=== PATIENT | female | born 1980 | race Caucasian/White ===

== ENCOUNTER 2017-09-06 13:23 | Day surgery (SDC) | payer OTHER, SELFPAY ==
[2017-09-06 14:02] VITALS: BP 182/94; PULSE 108; RESP 18; TEMP 37.1; O2SAT 99; BMI 35.3
[2017-09-06 14:06] LABS: Internal QC Validated? YES +Cl - CLEAR BKGD; Pregnancy, Urine Negative Negative
[2017-09-06] MEDS: Cefazolin 2 GM in 0.9% Normal Saline 100 ML IV (17:14)
--- NOTE | 2017-09-06 17:20 | PCM.DC.URO ---
Discharge Diet: Light diet - advance as tolerated Discharge Activity: Return to Normal Activity Instructions: Ureteral Stents Allergies/Adverse Reactions: Allergies No Known Allergies Allergy (Verified 09/05/17 14:36) Medications to take at Discharge NK [NK] 09/05/17 Primary Care Physician: Merly Rahman DO [Primary Care Provider] - Please Follow Up With: Ranjeet Carrizales MD When: call for an appt in about 2 months.
[2017-09-06 17:21] VITALS: BP 155/103; BP 182/94; PULSE 93; RESP 18; O2SAT 97
--- NOTE | 2017-09-06 17:21 | PCM.OPRPT ---
Report of Operation Date of Procedure: 09/06/17 Pre-Operative Diagnosis: Left hydronephrosis suspected cervical cancer Post-Operative Diagnosis: Same Surgery/Procedure Performed:: Cystoscopy and left stent placement Description of Surgical Findings:: 37-year-old female taken back to the operating room after smooth induction of anesthesia she was placed in dorsal lithotomy position. On exam she had a palpable mass within the vaginal vault somewhat friable, cystoscopy was done and inside the urethra was normal the bladder was mounded up like external compression on the left hemitrigone, the right side was normal, inside the bladder no tumors or stones nice smooth mucosa, I was able to cannulate the left ureteral orifice advanced a wire up the left kidney and over the wire I placed a stent 6 Hungarian by 24 cm stent stent coiled in the kidney and in the bladder good position I then drained the bladder and the patient anesthetic was reversed she was taken back to PACU in good condition. Explained to the patient before the procedure that stent can probably be changed every 3 months if deemed to be necessary still but if after treatment of her cervical cancer it is possible to remove the stent depending on the situation. Asked the patient to call and make an appointment to see me back in about 2 months. Type of Anesthesia:: General Drains: 6 fr x 24 cm stent left side. - Admit VTE Documentation VTE Present on Admission: No VTE Mechan Device Prophylaxis: SCD's VTE Pharm Prophylaxis ordered?: No Reason prophylaxis not ordered:: Treatment Not Indicated
[2017-09-06 17:30] VITALS: BP 157/98; BP 182/94; PULSE 104; RESP 18; TEMP 36.4; O2SAT 96
[2017-09-06 18:00] VITALS: BP 167/111; BP 182/94; RESP 18; TEMP 36.1; O2SAT 92
[2017-09-06 18:25] VITALS: BP 182/94
== END 2017-09-06 18:25 | disposition home or self-care (01) ==
LOC: SDC 13:25 → AC 13:28
PROVIDERS: Anesthesiology; Family Provider Internal Medicine; PCP Internal Medicine; Visit Provider Urology
PROC: (CPT 52332; principal; 2017-09-06 15:15)
DX: N13.30 Unspecified hydronephrosis (principal); N88.9 Noninflammatory disorder of cervix uteri, unspecified; Z87.891 Personal history of nicotine dependence
CPT/HCPCS: 00910; 52332; 76000; 81025; J7120; C1769; C2617; J2405

== ENCOUNTER 2017-09-07 12:29 | Observation (INO) | payer OTHER, SELFPAY ==
[2017-09-07] VITALS (13 sets, daily range): BP systolic 158–199; BP diastolic 91–110; PULSE 80–104; RESP 16–20; TEMP 36.1–36.9; O2SAT 94–100; BMI 34.2
--- NOTE | 2017-09-07 12:53 | CT_ITS ---
STUDY: CT ABDOMEN AND PELVIS WITH CONTRAST REASON FOR EXAM: Female, 37 years old. Bilateral flank pain stent placement RADIATION DOSAGE (If Supplied By Facility): CTDIvol = ( 16.59 ) mGy, DLP = ( 1245.98 ) mGycm TECHNIQUE: Transaxial images were obtained from the dome of the diaphragm to the symphysis pubis without oral contrast. 100 ml of Isovue 300 contrast was administered. Sagittal and coronal images were reconstructed. Individualized dose optimization techniques were used for this CT. COMPARISON: None. FINDINGS: Small right-sided pleural effusion. A right lower lobe nodule noted which appears somewhat low-attenuation concerning for neoplasm measuring approximately 2.2 cm. Please consider chest CT. Small nodule in the left lower lobe also seen measuring approximately 6 mm. No pericardial effusion. Mild hepatic steatosis. Gallbladder and adrenal glands appear unremarkable. The pancreas are within normal limits. The bowel gas pattern is nonobstructive. No definite evidence for acute appendicitis. A left-sided double-J ureteral stent device seen. No definite evidence for left-sided hydronephrosis. Mild right-sided hydronephrosis seen without definite evidence for obstructing ureteral stones. Somewhat delayed right-sided nephrogram Uterus appears prominent with thickened endometrium and prominent left adnexa measuring approximately 5 cm which can be assessed with sonography. There is heterogeneous density noted in the region of the cervix. Cervical mass is not excluded. Pelvic adenopathy also seen along the inguinal chain largest measuring approximately 1.3 cm. Osseous structures demonstrate no acute abnormalities. Degenerative changes in the lumbar spine as well as the thoracic spine. No retroperitoneal adenopathy noted. IMPRESSION: Status post left-sided double-J ureteral stent placement without definite evidence for hydronephrosis. Mild right-sided hydronephrosis without evidence for obstructing ureteral stones. Mass effect on the distal right ureter by pelvic mass is suspected Heterogeneous density mass originating from the cervix concerning for neoplasm. Low-attenuation cystic structure in the left adnexa which can be assessed with sonography Right lower lobe nodule. Small right-sided pleural effusion concerning for metastatic disease. Small left-sided lung nodule in the left lower lobe. Pelvic adenopathy No evidence for acute appendicitis. Electronically Signed: Miguel Gore, at 14:26 EDT Tel , Service support , CT/Abdomen/Pelvis W IV Cont ONLY
[2017-09-07] MEDS: proMETHazine 25 MG/ML Syringe 6.25 MG IV (13:02)
[2017-09-07] MEDS: Morphine 4 MG/ML Syringe IV (13:02)
[2017-09-07 13:16] LABS: Mucous, Urine 0 SEEN /hpf (<or=2+)
[2017-09-07 13:17] LABS: Color, Urine Yellow (Yellow); Glucose, Dipstick Normal (Normal); Ketone-Dipstick Negative (Negative); Leukocyte Esterase-Dipstick 500 /ul (Negative); Nitrite-Dipstick Negative (Negative); Occult Blood-Urine 250 /ul (Negative); Protein-Dipstick 30 mg/dl (Negative); Specific Gravity, Urine 1.005 (1.002-1.030); Urine Bilirubin Dipstick Negative (Negative); Urine Clarity Clear (Clear); Urine Urobilinogen Normal (Normal)
[2017-09-07 13:18] LABS: Absolute Lymphocyte Count 1.22 X10^3/ul (0.83-4.51); Absolute Neutrophil Count 8.3 X10^3/uL (2.0-7.7); Basophil# 0.01 X10^3/uL; Basophil% 0.1 % (0-1); Eosinophil# 0.16 X10^3/uL; Eosinophils% 1.6 % (0-5); Hemoglobin 11.8 g/dl (12.0-15.0); Lymphocyte # 1.22 X10^3/ul (4.0); Lymphocyte % 11.9 % (19-41); Mean Corp Hgb Conc 31.9 g/gl (32-36); Mean Corpuscular Hgb 25.4 pg (27.0-32.0); Mean Corpuscular Volume 79.7 fL (81-99); Mean Platelet Vol. 8.2 fl (6.2-12.0); Monocyte# 0.53 X10^3/uL; Monocyte% 5.2 % (0-10); Neutrophil # 8.33 X10^3/uL (2.7-7.7); Neutrophil % 81.1 % (47-70); Platelet Count 283 K/mm3 (150-450); RBC Distribution Width CV 13.5 % (11.6-14.6); RBC Distribution Width SD 38.8 fl (35.1-43.9); Red Blood Count 4.64 M/mm3 (4.2-5.4); White Blood Count 10.3 K/mm3 (4.4-11.0)
[2017-09-07 13:20] LABS: POSITIVE COUNT NO; POSITIVE DIFFERENTIAL NO; POSITIVE MORPHOLOGY NO
[2017-09-07 13:23] LABS: Bacteria 2+ /hpf (None Seen); Red Blood Cells-Urine 0-5 SEEN /hpf (0-5); Squamous Epithelial Cells - UA 0-5 SEEN /hpf (5-10); White Blood Cells 10-25 SEEN /hpf (0-5)
[2017-09-07 13:34] LABS: ALB/GLOB Ratio 0.7 RATIO (0.9-2.4); AST(SGOT) 16 U/L (15-37); Alanine Aminotransfer ALT/SGPT 10 U/L (13-56); Albumin, Serum 3.2 g/dL (3.2-5.0); Alkaline Phosphatase 61 U/L (45-117); Anion Gap 9 (5-15); BUN 8 mg/dL (7-18); BUN/Creat Ratio 5.3 RATIO (10-20); Calcium,Total 8.7 mg/dL (8.5-10.1); Chloride 105 mmol/L (98-107); EST Glomerular Filtration Rate 41 mL/min (>60); Est Glom Filt Rate - Afr Amer 50 mL/min (>60); Estimated Creatinine Clearance 41.65 ml/min; Globulin 4.3 g/dL (2.2-4.2); Glucose 142 mg/dL (74-106); Lipase 143 U/L (73-393); Protein, Total 7.5 g/dL (6.4-8.2); Sodium Level 140 mmol/L (136-145)
--- NOTE | 2017-09-07 13:37 | ED.VISSUMM ---
- ER Visit Summary Date of Service: 09/07/17 Chief Complaint: [Bilateral flank pain and abdominal pain] History of Present Illness: The patient is a 37 F [presents the emergency department with bilateral lower abdominal pain and flank pain. She has had a UTI for the last month. She has been on Cipro and Levaquin but is currently not on any antibiotics. Yesterday she had a stent placed in her left ureter by Dr. Armijo for hydronephrosis. She does have possible cervical cancer and they were concerned about a mass compressing the left ureter. Today she has left sided pain as well as right sided pain. She is currently not on any medications. She has had 2-3 episodes of vomiting yesterday and 2-3 episodes today. No fever.] Physical Examination: [] Pressure 164/100 WN WD NAD PERRL EOMI MMM NECK supple and nontender, no masses RRR no murmur rub or gallop, no peripheral edema, symmetric radial pulses CTAB no respiratory distress ABDOMEN is soft bilateral pelvic tenderness normal bowel sounds, no distension, no rebound or guarding Bilateral CVA tenderness SKIN is warm and dry no rashes Alert and Oriented x3, CN II-XII in tact, no motor or sensory deficits, gait normal No lymphadenopathy Test Results: [] Emergency Department Course and Treatment: [She was given fluids and pain medicine. Screening labs were obtained. I discussed ultrasound versus CT with this patient who prefers to have a CAT scan. Urinalysis showed 5-10 white blood cells with 2+ bacteria is not contaminated urine culture was sent. CT scan shows stent left. She now has right hydronephrosis. She also likely has metastatic disease with a right pulmonary nodule and pleural effusion. Given these findings and the patient's symptoms she will be admitted to the hospital.] Treatment Plan: [] Disposition: [Admit] Impression: [1. Right hydronephrosis 2. Pelvic mass obstructing] This note was generated with [employer] dictation software. It may contain incorrect words, spelling, and punctuation that were not noted in review of the chart prior to signing ED Disposition - Plan for ED Patient: Disposition: Acute Care Hospital [facility] Chief Complaint: Flank Pain
--- NOTE | 2017-09-07 16:06 | DT_ITS ---
This patient was seen during an EMR downtime September 09, 2017 - September 16, 2017. This patient may have a combination of paper and electronic documentation or all paper documentation. All documentation is viewable within the e-chart portion of [employer] for each patient visit.
--- NOTE | 2017-09-07 16:06 | PCM.HP.STD ---
Problem List (1) Hydronephrosis, right Status: Acute (2) JENNI (acute kidney injury) Status: Acute (3) Hypokalemia Status: Acute (4) Pelvic mass Status: Chronic History of Present Illness Date of Admission: 09/07/17 Chief Complaint: right flank pain. The patient is a 37 year old F with suspected cervical cancer, presents with right flank pain ?1 day. On the first, patient underwent a left ureteral stent for left-sided hydronephrosis due to a pelvic mass. Then today, patient had right flank pain. Patient presented to the emergency room and had a CAT scan. CAT scan showed left stent was intact but did show mild right-sided hydronephrosis without obstructing stones and possible mass-effect by the distal right ureter by pelvic mass is suspected. Patient was seen by Dr. Carrizales and he is planning on taking the patient for a right-sided stent tonight. [] Past Medical History Past Medical History (Chronic Problems): Chronic Problems Pelvic mass (Chronic) Allergies No Known Allergies Allergy (Verified 09/07/17 12:31) Home Medications: Ambulatory Orders Medication Instructions Recorded NK [NK] 09/05/17 Surgical History: - - History of a LEEP procedure Psychiatric History: No pertinent psych hx Smoking Status: Former smoker Tobacco Use: Non-smoker Alcohol: None Drugs: None - *Family History Maternal History Items: - - No cervical cancer. Review of Systems Constitutional: Denies: Anorexia, Chills, Fever Eyes: Denies: Blurred vision, Double vision HEENT: Reports: Difficulty Hearing Cardiovascular: Denies: Chest Pain, Palpitations Respiratory: Denies: Cough, Shortness of breath at rest, Sputum production Gastrointestinal: Reports: Abdominal Pain, Nausea, Vomiting Genitourinary: Denies: Dysuria, Hematuria Musculoskeletal: Denies: Joint Pain, Joint Tenderness Skin: Denies: Dryness, Jaundice Neurological: Denies: Balance problems, Blurred vision, Double vision, Change in Speech, Slurred speech Psychiatric: Denies: Anxiety, Depression Hematologic/ Lymphatic: Denies: Easy Bruising, Easy Bleeding, Hx of blood clot VTE Information - Inpt Only VTE Present on Admission: No VTE Mechan Device Prophylaxis: SCD's Patient Problems: Active and Suspected Problems Hydronephrosis, right (Acute) JENNI (acute kidney injury) (Acute) Hypokalemia (Acute) - Physical Exam General: Alert, - - Comfortable. Afebrile. HEENT: Atraumatic, Normocephalic Oral: Moist Mucosa, No Gingival or Mucosal Lesions/ Ulcerations Neck: No Nodes, Thyroid Normal Size and Texture Lungs: Clear to auscultation, Normal air movement, No rhonchi, No wheeze Cardiovascular: Regular rate, Regular Rhythm, Normal S1, Normal S2, No murmurs Abdomen: Bowel Sounds Present, Soft, Non Tender, Non-Distended, No Hepato-splenomegaly Extremities: No edema, No Calf Tenderness Psych/Mental Status: Normal Affect, Appropriate Vital Signs Temp Pulse Resp BP Pulse Ox 36.7 C 80 20 H 178/104 H 94 09/07/17 12:30 09/07/17 15:05 09/07/17 15:05 09/07/17 15:05 09/07/17 15:05 Oxygen Delivery Method Room Air Weight: 87.634 kg Body Mass Index (BMI) 34.2 Laboratory Tests Past 24 Hrs 09/07/17 09/07/17 09/07/17 13:00 13:00 13:00 WBC 10.3 RBC 4.64 Hgb 11.8 L Hct 37.0 MCV 79.7 L MCH 25.4 L MCHC 31.9 L RDW 13.5 RDW Differential 38.8 Plt Count 283 MPV 8.2 Immature Gran % (Auto) 0.100 Neut % (Auto) 81.1 H Lymph % (Auto) 11.9 L [place] % (Auto) 5.2 Eos % (Auto) 1.6 Baso % (Auto) 0.1 Absolute Neuts (auto) 8.3 H Absolute Lymphs (auto) 1.22 Total Counted Not Reportable Sodium 140 Potassium 3.0 L Chloride 105 Carbon Dioxide 26.0 Anion Gap 9 BUN 8 Creatinine 1.50 H Estim Creat Clear Calc 41.65 Est GFR (MDRD) Af Amer 50 L Est GFR (MDRD) Non-Af 41 L BUN/Creatinine Ratio 5.3 L Glucose 142 H Calcium 8.7 Total Bilirubin 0.40 AST 16 ALT 10 L Alkaline Phosphatase 61 Total Protein 7.5 Albumin 3.2 Globulin 4.3 H Albumin/Globulin Ratio 0.7 L Lipase 143 Urine Color Yellow Urine Clarity Clear Urine pH 7.0 Ur Specific [place] 1.005 Urine Protein 30 H Urine Glucose (UA) Normal Urine Ketones Negative Urine Occult Blood 250 H Urine Nitrite Negative Urine Bilirubin Negative Urine Urobilinogen Normal Ur Leukocyte Esterase 500 H Urine RBC 0-5 SEEN Urine WBC 10-25 SEEN Ur Squamous Epith Cells 0-5 SEEN Urine Bacteria 2+ Urine Mucus 0 SEEN Clinical Impression(s) from Imaging Studies Abdomen/Pelvis CT 09/07/17 12:53 Assessment/Plan All Active Problems Hydronephrosis, right (Acute) JENNI (acute kidney injury) (Acute) Hypokalemia (Acute) 1. Right-sided hydronephrosis Likely due to pelvic mass Patient to have a stent placed by urology this evening Control and antiemetics. 2. Acute kidney injury This is suspected. Last creatinine was from April 15, 2014 were 0.7. It is currently 1.5. Will give IV fluids and reevaluate in the morning. 3. Hypokalemia Patient did receive replacement in the emergency room Will follow up in the morning. 4. Pelvic mass Patient had a biopsy done 2 days ago at an outside facility Patient was told that it is suspected to be cervical cancer though not definitive at this time. 5. DVT prophylaxis with SCDs I am going to hold off on any kind of anticoagulation for now unless necessary. Just with the surgeries arms can hold off. Code Visit Inpatient E&M: 99553 Init Hosp L2
--- NOTE | 2017-09-07 16:13 | HP.PCM_ITS ---
Problem List (1) Hydronephrosis, right Status: Acute (2) JENNI (acute kidney injury) Status: Acute (3) Hypokalemia Status: Acute (4) Pelvic mass Status: Chronic History of Present Illness Date of Admission: 09/07/17 Chief Complaint: right flank pain. The patient is a 37 year old F with suspected cervical cancer, presents with right flank pain ?1 day. On the first, patient underwent a left ureteral stent for left-sided hydronephrosis due to a pelvic mass. Then today, patient had right flank pain. Patient presented to the emergency room and had a CAT scan. CAT scan showed left stent was intact but did show mild right-sided hydronephrosis without obstructing stones and possible mass-effect by the distal right ureter by pelvic mass is suspected. Patient was seen by Dr. Carrizales and he is planning on taking the patient for a right-sided stent tonight. [] Past Medical History Past Medical History (Chronic Problems): Chronic Problems Pelvic mass (Chronic) Allergies No Known Allergies Allergy (Verified 09/07/17 12:31) Home Medications: Ambulatory Orders Medication Instructions Recorded NK [NK] 09/05/17 Surgical History: - - History of a LEEP procedure Psychiatric History: No pertinent psych hx Smoking Status: Former smoker Tobacco Use: Non-smoker Alcohol: None Drugs: None - *Family History Maternal History Items: - - No cervical cancer. Review of Systems Constitutional: Denies: Anorexia, Chills, Fever Eyes: Denies: Blurred vision, Double vision HEENT: Reports: Difficulty Hearing Cardiovascular: Denies: Chest Pain, Palpitations Respiratory: Denies: Cough, Shortness of breath at rest, Sputum production Gastrointestinal: Reports: Abdominal Pain, Nausea, Vomiting Genitourinary: Denies: Dysuria, Hematuria Musculoskeletal: Denies: Joint Pain, Joint Tenderness Skin: Denies: Dryness, Jaundice Neurological: Denies: Balance problems, Blurred vision, Double vision, Change in Speech, Slurred speech Psychiatric: Denies: Anxiety, Depression Hematologic/ Lymphatic: Denies: Easy Bruising, Easy Bleeding, Hx of blood clot VTE Information - Inpt Only VTE Present on Admission: No VTE Mechan Device Prophylaxis: SCD's Patient Problems: Active and Suspected Problems Hydronephrosis, right (Acute) JENNI (acute kidney injury) (Acute) Hypokalemia (Acute) - Physical Exam General: Alert, - - Comfortable. Afebrile. HEENT: Atraumatic, Normocephalic Oral: Moist Mucosa, No Gingival or Mucosal Lesions/ Ulcerations Neck: No Nodes, Thyroid Normal Size and Texture Lungs: Clear to auscultation, Normal air movement, No rhonchi, No wheeze Cardiovascular: Regular rate, Regular Rhythm, Normal S1, Normal S2, No murmurs Abdomen: Bowel Sounds Present, Soft, Non Tender, Non-Distended, No Hepato- splenomegaly Extremities: No edema, No Calf Tenderness Psych/Mental Status: Normal Affect, Appropriate Vital Signs Temp Pulse Resp BP Pulse Ox 36.7 C 80 20 H 178/104 H 94 09/07/17 12:30 09/07/17 15:05 09/07/17 15:05 09/07/17 15:05 09/07/17 15:05 Oxygen Delivery Method Room Air Weight: 87.634 kg Body Mass Index (BMI) 34.2 Laboratory Tests Past 24 Hrs 09/07/17 09/07/17 09/07/17 13:00 13:00 13:00 WBC 10.3 RBC 4.64 Hgb 11.8 L Hct 37.0 MCV 79.7 L MCH 25.4 L MCHC 31.9 L RDW 13.5 RDW Differential 38.8 Plt Count 283 MPV 8.2 Immature Gran % (Auto) 0.100 Neut % (Auto) 81.1 H Lymph % (Auto) 11.9 L [place] % (Auto) 5.2 Eos % (Auto) 1.6 Baso % (Auto) 0.1 Absolute Neuts (auto) 8.3 H Absolute Lymphs (auto) 1.22 Total Counted Not Reportable Sodium 140 Potassium 3.0 L Chloride 105 Carbon Dioxide 26.0 Anion Gap 9 BUN 8 Creatinine 1.50 H Estim Creat Clear Calc 41.65 Est GFR (MDRD) Af Amer 50 L Est GFR (MDRD) Non-Af 41 L BUN/Creatinine Ratio 5.3 L Glucose 142 H Calcium 8.7 Total Bilirubin 0.40 AST 16 ALT 10 L Alkaline Phosphatase 61 Total Protein 7.5 Albumin 3.2 Globulin 4.3 H Albumin/Globulin Ratio 0.7 L Lipase 143 Urine Color Yellow Urine Clarity Clear Urine pH 7.0 Ur Specific [place] 1.005 Urine Protein 30 H Urine Glucose (UA) Normal Urine Ketones Negative Urine Occult Blood 250 H Urine Nitrite Negative Urine Bilirubin Negative Urine Urobilinogen Normal Ur Leukocyte Esterase 500 H Urine RBC 0-5 SEEN Urine WBC 10-25 SEEN Ur Squamous Epith Cells 0-5 SEEN Urine Bacteria 2+ Urine Mucus 0 SEEN Clinical Impression(s) from Imaging Studies Abdomen/Pelvis CT 09/07/17 12:53 Assessment/Plan All Active Problems Hydronephrosis, right (Acute) JENNI (acute kidney injury) (Acute) Hypokalemia (Acute) 1. Right-sided hydronephrosis * Likely due to pelvic mass * Patient to have a stent placed by urology this evening * Control and antiemetics. 2. Acute kidney injury * This is suspected. Last creatinine was from April 15, 2014 were 0.7. It is currently 1.5. * Will give IV fluids and reevaluate in the morning. 3. Hypokalemia * Patient did receive replacement in the emergency room * Will follow up in the morning. 4. Pelvic mass * Patient had a biopsy done 2 days ago at an outside facility * Patient was told that it is suspected to be cervical cancer though not definitive at this time. 5. DVT prophylaxis with SCDs * I am going to hold off on any kind of anticoagulation for now unless necessary. Just with the surgeries arms can hold off. Code Visit Inpatient E&M: 23380 Init Hosp L2
--- NOTE | 2017-09-07 16:23 | CON.PCM_ITS ---
Reason for Consult Date of Consultation: 09/07/17 Reason for Consultation: 37-year-old female with likely has cervical cancer status post placement of a stent on the left side just yesterday presented back to the emergency room with right new flank pain CAT scan was done that demonstrated new right hydronephrosis History of Present Illness: The patient is a 37 year old female with likely new diagnosis of cervical cancer status post placement of the left side yesterday for left hydronephrosis seen on outside CAT scan. Called in today with severe right flank pain, went to the emergency room and demonstrated new right hydronephrosis on CAT scan so plan to take the operating room today to place a stent on the right side. Also has pleural effusion on the right side and abnormal electrolytes. Past Medical History Past Medical History (Chronic Problems): Chronic Problems Pelvic mass (Chronic) Allergies No Known Allergies Allergy (Verified 09/07/17 12:31) Home Medications: Ambulatory Orders Medication Instructions Recorded NK [NK] 09/05/17 Surgical History: - - History of a LEEP procedure Psychiatric History: No pertinent psych hx Lives: With Family Smoking Status: Former smoker Tobacco Use: Non-smoker Alcohol: None Drugs: None - *Family History Maternal History Items: - - No cervical cancer. Review of Systems Constitutional: Denies: Chills, Fever, Weight Change HEENT: Denies: Head Aches, Sinus Congestion, Sinus Drainage Cardiovascular: Denies: Chest Pain, Palpitations Respiratory: Denies: Cough, Shortness of breath at rest, Sputum production Gastrointestinal: Reports: Abdominal Pain. Denies: Nausea, Vomiting Genitourinary: Denies: Dysuria Musculoskeletal: Reports: Back Pain. Denies: Joint Pain, Joint Tenderness Skin: Denies: Rash, Wounds Neurological: Denies: Numbness, Tingling, Focal weakness Psychiatric: Denies: Anxiety, Depression, Homicidal Ideations, Suicidal Ideations Hematologic/ Lymphatic: Denies: Easy Bruising, Easy Bleeding Physical Exam - Physical Exam Vital Signs Temp 98.0 F 09/07/17 12:30 Pulse 80 09/07/17 15:05 Resp 20 H 09/07/17 15:05 BP 178/104 H 09/07/17 15:05 Pulse Ox 94 09/07/17 15:05 Intake & Output 09/05/17 09/06/17 09/07/17 23:59 23:59 23:59 Weight: 87.634 kg General: Alert, Oriented x3 HEENT: Atraumatic Oral: Moist Mucosa - Recall [place]: Supple Lungs: Normal air movement - he has talked him Cardiovascular: Regular rate, Regular Rhythm Abdomen: Bowel Sounds Present, Soft, Obese Laboratory Tests Past 24 Hrs 09/07/17 09/07/17 09/07/17 13:00 13:00 13:00 WBC 10.3 RBC 4.64 Hgb 11.8 L Hct 37.0 MCV 79.7 L MCH 25.4 L MCHC 31.9 L RDW 13.5 RDW Differential 38.8 Plt Count 283 MPV 8.2 Immature Gran % (Auto) 0.100 Neut % (Auto) 81.1 H Lymph % (Auto) 11.9 L [place] % (Auto) 5.2 Eos % (Auto) 1.6 Baso % (Auto) 0.1 Absolute Neuts (auto) 8.3 H Absolute Lymphs (auto) 1.22 Total Counted Not Reportable Sodium 140 Potassium 3.0 L Chloride 105 Carbon Dioxide 26.0 Anion Gap 9 BUN 8 Creatinine 1.50 H Estim Creat Clear Calc 41.65 Est GFR (MDRD) Af Amer 50 L Est GFR (MDRD) Non-Af 41 L BUN/Creatinine Ratio 5.3 L Glucose 142 H Calcium 8.7 Total Bilirubin 0.40 AST 16 ALT 10 L Alkaline Phosphatase 61 Total Protein 7.5 Albumin 3.2 Globulin 4.3 H Albumin/Globulin Ratio 0.7 L Lipase 143 Urine Color Yellow Urine Clarity Clear Urine pH 7.0 Ur Specific [place] 1.005 Urine Protein 30 H Urine Glucose (UA) Normal Urine Ketones Negative Urine Occult Blood 250 H Urine Nitrite Negative Urine Bilirubin Negative Urine Urobilinogen Normal Ur Leukocyte Esterase 500 H Urine RBC 0-5 SEEN Urine WBC 10-25 SEEN Ur Squamous Epith Cells 0-5 SEEN Urine Bacteria 2+ Urine Mucus 0 SEEN Assessment/Plan All Active Problems Hydronephrosis, right (Acute) JENNI (acute kidney injury) (Acute) Hypokalemia (Acute) New right hydronephrosis and pain in the right side little bit of pain in the left side probably related to the stent, will place a stent on the right side now for new right hydronephrosis and admit to the hospital help adjust with pain meds etc. hopefully discharge within 24 hours.
[2017-09-07] MEDS: Cefazolin 2 GM in 0.9% Normal Saline 100 ML IV (16:43)
--- NOTE | 2017-09-07 16:53 | OP.PCM_ITS ---
Report of Operation Date of Procedure: 09/07/17 Pre-Operative Diagnosis: New right hydronephrosis, suspected cervical cancer Post-Operative Diagnosis: Same Surgery/Procedure Performed:: Cystoscopy, right retrograde Polygram, right stent placement Description of Surgical Findings:: 37-year-old female taken back to the operating room presented to the ER with severe right flank pain she has had a stent placed in the left side CAT scan was done that demonstrated new right hydronephrosis hydroureter she has a mass in the pelvis that is consistent with possible cervical cancer treated as had a biopsy done pathology pending. Plan to taken the operating room today to place a stent on the right side also of note electrolytes are normal and she does high very hypertensive. 37-year-old female taken back to the operating room at the smooth induction of anesthesia she was placed supine on the table the urethra and vaginal area were prepped and draped in usual sterile fashion went into the bladder with a 21 Bulgarian rigid cystourethroscope, the existing stent on the left side was in place in good position, I then went to the right side cannulated the ureteral orifice with a Glidewire and a Pollack catheter performed a retrograde pyelogram she had some mild dilation of the ureter and but she did have some mild right hydronephrosis certainly was not severe but was mild consistent was seen was on CAT scan. I then advanced a wire up into the right kidney over the wire place a stent stent was a 6 Bulgarian by 24 cm stent the stent coiled in the kidney pelvis and the bladder in good position the bladder was then drained the patient's anesthetic was reversed should be kept in the hospital to monitor and also to monitor for pain electrolytes and also for her high blood pressure. Type of Anesthesia:: General Drains: stent right side. - Admit VTE Documentation VTE Present on Admission: No VTE Mechan Device Prophylaxis: SCD's VTE Pharm Prophylaxis ordered?: No Reason prophylaxis not ordered:: Treatment Not Indicated
[2017-09-07] MEDS: Morphine 2 MG/ML Syringe IV ×2 (18:41→23:13)
[2017-09-07] MEDS: 0.9% NaCl Peripheral Flush Adult/Peds IV (18:41)
[2017-09-07] MEDS: 0.9% Normal Saline 1,000 ML 100 ML IV (18:42)
[2017-09-07] MEDS: Ondansetron 4 MG/2 ML Vial IV (19:40)
[2017-09-07] MEDS: hydrALAZINE 20 MG/ML Vial 10 MG IV (22:00)
[2017-09-08 03:53] VITALS: BP 163/95; PULSE 95; RESP 16; TEMP 36.3; O2SAT 98
[2017-09-08] MEDS: Ondansetron 4 MG/2 ML Vial IV (03:59)
[2017-09-08] MEDS: oxyCODONE 5 MG Tablet PO ×4 (05:05→23:32)
[2017-09-08 06:28] LABS: Absolute Lymphocyte Count 0.99 X10^3/ul (0.83-4.51); Absolute Neutrophil Count 10.3 X10^3/uL (2.0-7.7); Basophil# 0.02 X10^3/uL; Basophil% 0.2 % (0-1); Eosinophil# 0.08 X10^3/uL; Eosinophils% 0.7 % (0-5); Hematocrit 34.5 % (37-47); Lymphocyte # 0.99 X10^3/ul (4.0); Lymphocyte % 8.1 % (19-41); Mean Corp Hgb Conc 31.9 g/gl (32-36); Mean Corpuscular Hgb 25.4 pg (27.0-32.0); Mean Corpuscular Volume 79.7 fL (81-99); Monocyte# 0.74 X10^3/uL; Monocyte% 6.1 % (0-10); Neutrophil % 84.6 % (47-70); Platelet Count 277 K/mm3 (150-450); RBC Distribution Width CV 13.7 % (11.6-14.6); RBC Distribution Width SD 39.3 fl (35.1-43.9); Red Blood Count 4.33 M/mm3 (4.2-5.4); White Blood Count 12.2 K/mm3 (4.4-11.0)
[2017-09-08 06:34] LABS: POSITIVE COUNT NO; POSITIVE DIFFERENTIAL NO; POSITIVE MORPHOLOGY NO
[2017-09-08 06:36] LABS: Anion Gap 9 (5-15); BUN 7 mg/dL (7-18); BUN/Creat Ratio 6.2 RATIO (10-20); Calcium,Total 8.4 mg/dL (8.5-10.1); Chloride 105 mmol/L (98-107); Creatinine, Serum 1.13 mg/dL (0.55-1.02); EST Glomerular Filtration Rate 57 mL/min (>60); Est Glom Filt Rate - Afr Amer 69 mL/min (>60); Estimated Creatinine Clearance 55.29 ml/min; Glucose 120 mg/dL (74-106); Potassium 2.9 mmol/L (3.5-5.1); Sodium Level 141 mmol/L (136-145)
[2017-09-08] MEDS: Acetaminophen 325 MG Tablet 650 MG PO (06:36)
[2017-09-08 07:23] VITALS: BP 149/100; PULSE 86; RESP 16; TEMP 37.1; O2SAT 95
--- NOTE | 2017-09-08 10:38 | PCM.PN.HOSP ---
Patient Problems: Active and Suspected Problems Hydronephrosis, right (Acute) JENNI (acute kidney injury) (Acute) Hypokalemia (Acute) Subjective: Abdominal pain better, but 7/10. +N/V. Vitals/I&O's: Vital Signs Temp Pulse Resp BP Pulse Ox 37.1 C 86 16 149/100 H 95 09/08/17 07:23 09/08/17 07:23 09/08/17 07:23 09/08/17 07:23 09/08/17 07:23 Oxygen Flow Rate (L/min) 2 Oxygen Delivery Method Room Air Weight: 87.63 kg Body Mass Index (BMI) 34.2 Intake and Output for Last 24 Hours 09/06/17 09/07/17 09/08/17 23:59 23:59 23:59 Intake Total 750 / 750 2147 / 2147 Output Total 180 / 180 3360 / 3360 Balance 570 / 570 -1213 / -1213 General: Alert, No apparent distress HEENT: Atraumatic, Normocephalic Neck: No Nodes, Thyroid Normal Size and Texture Lungs: Clear to auscultation, Normal air movement, No rhonchi, No wheeze Cardiovascular: Regular rate, Regular Rhythm, Normal S1, Normal S2, No murmurs Abdomen: Bowel Sounds Present, Soft, Non Tender, Non-Distended, No Hepato-splenomegaly Extremities: No edema, No Calf Tenderness Psych/Mental Status: Normal Affect, Appropriate Laboratory Results 09/08/17 06:00: WBC 12.2 H, RBC 4.33, Hgb 11.0 L, Hct 34.5 L, MCV 79.7 L, MCH 25.4 L, MCHC 31.9 L, RDW 13.7, RDW Differential 39.3, Plt Count 277, MPV 8.0, Immature Gran % (Auto) 0.300, Neut % (Auto) 84.6 H, Lymph % (Auto) 8.1 L, [place] % (Auto) 6.1, Eos % (Auto) 0.7, Baso % (Auto) 0.2, Absolute Neuts (auto) 10.3 H, Absolute Lymphs (auto) 0.99, Total Counted Not Reportable 09/08/17 06:00: Sodium 141, Potassium 2.9 L, Chloride 105, Carbon Dioxide 27.0, Anion Gap 9, BUN 7, Creatinine 1.13 H, Estim Creat Clear Calc 55.29, Est GFR (MDRD) Af Amer 69, Est GFR (MDRD) Non-Af 57 L, BUN/Creatinine Ratio 6.2 L, Glucose 120 H, Calcium 8.4 L Current Medications Acetaminophen (Tylenol) 650 mg PO Q6H PRN PRN PRN Reason: Mild Pain (1-3)/Temp > 100.7 F Last Admin: 09/08/17 06:36 Dose: 650 mg Hydralazine HCl (Apresoline Iv) 10 mg IV Q6H PRN PRN PRN Reason: BLOOD PRESSURE ELEVATION Last Admin: 09/07/17 22:00 Dose: 10 mg Potassium Chloride (Kcl 10meq/100ml) 10 meq in 100 mls @ 100 mls/hr IV BOLUS Q1H MITA Stop: 09/08/17 11:44 Last Admin: 09/08/17 10:23 Dose: 100 mls/hr Magnesium Hydroxide (Milk Of Magnesia) 30 ml PO DAILY PRN PRN PRN Reason: Constipation Morphine Sulfate () 2 - 4 mg IV Q4H PRN PRN PRN Reason: MOD-SEVERE PAIN (4-10/10) Last Admin: 09/07/17 23:13 Dose: 2 mg Ondansetron HCl (Zofran) 4 mg IV Q8H PRN PRN PRN Reason: NAUSEA Last Admin: 09/08/17 03:59 Dose: 4 mg Oxycodone HCl (Oxyir) 5 - 10 mg PO Q4H PRN PRN PRN Reason: MOD-SEVERE PAIN (4-10/10) Last Admin: 09/08/17 05:05 Dose: 10 mg Sodium Chloride () 5 - 30 ml IV UD PRN PRN Reason: SALINE FLUSH Last Admin: 09/07/17 18:41 Dose: 10 ml Medical Necessity - Tobacco Use Smoking Status: Former smoker Tobacco Use: Non-smoker Assessment/Plan All Active Problems Hydronephrosis, right (Acute) JENNI (acute kidney injury) (Acute) Hypokalemia (Acute) 1. Right-sided hydronephrosis Likely due to pelvic mass s/p Right ureteral stent by Dr. Carrizales on 09/07. Had left sided stent placed on 09/06. 2. Acute kidney injury resolving continue with IVF given ongoing N/V 3. Hypokalemia Patient did receive replacement in the emergency room Will follow up in the morning. continue to replace and monitor while in hospital. 4. Pelvic mass Patient had a biopsy done 09/05 at an outside facility Patient was told that it is suspected to be cervical cancer though not definitive at this time. 5. DVT prophylaxis with SCDs I am going to hold off on any kind of anticoagulation for now unless necessary. Just with the surgeries arms can hold off. 6. Nausea and vomiting supportive mgmt for now. abd exam unremarkable at this time. 7. Disposition: pending N/V. once able to tolerate PO, she should be ready for discharge. Code Visit Inpatient E&M: 79058 Subs Hosp L2
--- NOTE | 2017-09-08 10:44 | PN_ITS ---
Patient Problems: Active and Suspected Problems Hydronephrosis, right (Acute) JENNI (acute kidney injury) (Acute) Hypokalemia (Acute) Subjective: Abdominal pain better, but 7/10. +N/V. Vitals/I&O's: Vital Signs Temp Pulse Resp BP Pulse Ox 37.1 C 86 16 149/100 H 95 09/08/17 07:23 09/08/17 07:23 09/08/17 07:23 09/08/17 07:23 09/08/17 07:23 Oxygen Flow Rate (L/min) 2 Oxygen Delivery Method Room Air Weight: 87.63 kg Body Mass Index (BMI) 34.2 Intake and Output for Last 24 Hours 09/06/17 09/07/17 09/08/17 23:59 23:59 23:59 Intake Total 750 / 750 2147 / 2147 Output Total 180 / 180 3360 / 3360 Balance 570 / 570 -1213 / -1213 General: Alert, No apparent distress HEENT: Atraumatic, Normocephalic Neck: No Nodes, Thyroid Normal Size and Texture Lungs: Clear to auscultation, Normal air movement, No rhonchi, No wheeze Cardiovascular: Regular rate, Regular Rhythm, Normal S1, Normal S2, No murmurs Abdomen: Bowel Sounds Present, Soft, Non Tender, Non-Distended, No Hepato- splenomegaly Extremities: No edema, No Calf Tenderness Psych/Mental Status: Normal Affect, Appropriate Laboratory Results 09/08/17 06:00: WBC 12.2 H, RBC 4.33, Hgb 11.0 L, Hct 34.5 L, MCV 79.7 L, MCH 25.4 L, MCHC 31.9 L, RDW 13.7, RDW Differential 39.3, Plt Count 277, MPV 8.0, Immature Gran % (Auto) 0.300, Neut % (Auto) 84.6 H, Lymph % (Auto) 8.1 L, [place] % (Auto) 6.1, Eos % (Auto) 0.7, Baso % (Auto) 0.2, Absolute Neuts (auto) 10.3 H , Absolute Lymphs (auto) 0.99, Total Counted Not Reportable 09/08/17 06:00: Sodium 141, Potassium 2.9 L, Chloride 105, Carbon Dioxide 27.0, Anion Gap 9, BUN 7, Creatinine 1.13 H, Estim Creat Clear Calc 55.29, Est GFR ( MDRD) Af Amer 69, Est GFR (MDRD) Non-Af 57 L, BUN/Creatinine Ratio 6.2 L, Glucose 120 H, Calcium 8.4 L Current Medications Acetaminophen (Tylenol) 650 mg PO Q6H PRN PRN PRN Reason: Mild Pain (1-3)/Temp > 100.7 F Last Admin: 09/08/17 06:36 Dose: 650 mg Hydralazine HCl (Apresoline Iv) 10 mg IV Q6H PRN PRN PRN Reason: BLOOD PRESSURE ELEVATION Last Admin: 09/07/17 22:00 Dose: 10 mg Potassium Chloride (Kcl 10meq/100ml) 10 meq in 100 mls @ 100 mls/hr IV BOLUS Q1H MITA Stop: 09/08/17 11:44 Last Admin: 09/08/17 10:23 Dose: 100 mls/hr Magnesium Hydroxide (Milk Of Magnesia) 30 ml PO DAILY PRN PRN PRN Reason: Constipation Morphine Sulfate () 2 - 4 mg IV Q4H PRN PRN PRN Reason: MOD-SEVERE PAIN (4-10/10) Last Admin: 09/07/17 23:13 Dose: 2 mg Ondansetron HCl (Zofran) 4 mg IV Q8H PRN PRN PRN Reason: NAUSEA Last Admin: 09/08/17 03:59 Dose: 4 mg Oxycodone HCl (Oxyir) 5 - 10 mg PO Q4H PRN PRN PRN Reason: MOD-SEVERE PAIN (4-10/10) Last Admin: 09/08/17 05:05 Dose: 10 mg Sodium Chloride () 5 - 30 ml IV UD PRN PRN Reason: SALINE FLUSH Last Admin: 09/07/17 18:41 Dose: 10 ml Medical Necessity - Tobacco Use Smoking Status: Former smoker Tobacco Use: Non-smoker Assessment/Plan All Active Problems Hydronephrosis, right (Acute) JENNI (acute kidney injury) (Acute) Hypokalemia (Acute) 1. Right-sided hydronephrosis * Likely due to pelvic mass * s/p Right ureteral stent by Dr. Carrizales on 09/07. Had left sided stent placed on 09/06. 2. Acute kidney injury * resolving * continue with IVF given ongoing N/V 3. Hypokalemia * Patient did receive replacement in the emergency room * Will follow up in the morning. * continue to replace and monitor while in hospital. 4. Pelvic mass * Patient had a biopsy done 09/05 at an outside facility * Patient was told that it is suspected to be cervical cancer though not definitive at this time. 5. DVT prophylaxis with SCDs * I am going to hold off on any kind of anticoagulation for now unless necessary. Just with the surgeries arms can hold off. 6. Nausea and vomiting * supportive mgmt for now. * abd exam unremarkable at this time. 7. Disposition: pending N/V. once able to tolerate PO, she should be ready for discharge. Code Visit Inpatient E&M: 59357 Subs Hosp L2
[2017-09-08] MEDS: Morphine 2 MG/ML Syringe IV (11:24)
[2017-09-08 13:30] VITALS: BP 178/104; PULSE 89; RESP 16; TEMP 36.9; O2SAT 97
[2017-09-08 20:15] VITALS: BP 172/98; PULSE 86; RESP 16; TEMP 36.9; O2SAT 99
[2017-09-08 23:34] VITALS: BP 187/115; PULSE 86; RESP 18; TEMP 36.9; O2SAT 99
[2017-09-08] MEDS: hydrALAZINE 20 MG/ML Vial 10 MG IV (23:34)
[2017-09-08] MEDS: 0.9% NaCl Peripheral Flush Adult/Peds IV (23:34)
[2017-09-09 00:35] VITALS: BP 168/92; PULSE 96; RESP 16
[2017-09-09 02:00] VITALS: BP 151/94; PULSE 96; RESP 16; TEMP 37.3; O2SAT 96
--- NOTE | 2017-09-17 10:02 | PCM.DC.SUM ---
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 Patient had undergone a stent placement in the left ureter on 06 September 2017 due to obstruction from a pelvic neoplasm-the actual etiology of the pelvic neoplasm was unknown but felt to be cervical cancer. Labs in the emergency room showed the patient's creatinine to be minimally elevated, she was given IV pain medications and imaging studies showed a right hydronephrosis. Patient was seen by urology, she was placed in observation status on [facility] 3 and a right ureteral stent was placed. For the next 48 hours after the stent was placed. Patient continued to have significant flank pain and had nausea and vomiting. She was given antiemetics and pain meds. Patient also received replacement potassium secondary to her hypokalemia. On 09/10/17, patient was seen and examined and felt to be in stable condition for discharge home, she was placed on blood pressure medications due to elevated blood pressure during her hospital stay, patient stated that in her recent office visits she had elevated blood pressure with but was not started on medication. Patient was to follow-up with her OB gynecological oncologist concerning her pelvic mass. Home Medications: Medications to take at Discharge NK [NK] 09/05/17 Primary Care Physician: Merly Rahman DO [Primary Care Provider] - Disposition: Home Minutes spent on discharge:: 25 Patient Condition:: Stable Medical Necessity - Tobacco Use Smoking Status: Former smoker Tobacco Use: Non-smoker Meaningful Use Info Meaningful Use Diagnoses (Choose all that apply): None applicable Code Visit OBSV E&M: 75783 Observation care discharge
--- NOTE | 2017-09-17 10:11 | DS.PCM_ITS ---
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 Patient had undergone a stent placement in the left ureter on 06 September 2017 due to obstruction from a pelvic neoplasm-the actual etiology of the pelvic neoplasm was unknown but felt to be cervical cancer. Labs in the emergency room showed the patient's creatinine to be minimally elevated, she was given IV pain medications and imaging studies showed a right hydronephrosis. Patient was seen by urology, she was placed in observation status on [facility] 3 and a right ureteral stent was placed. For the next 48 hours after the stent was placed. Patient continued to have significant flank pain and had nausea and vomiting. She was given antiemetics and pain meds. Patient also received replacement potassium secondary to her hypokalemia. On 09/10/17, patient was seen and examined and felt to be in stable condition for discharge home, she was placed on blood pressure medications due to elevated blood pressure during her hospital stay, patient stated that in her recent office visits she had elevated blood pressure with but was not started on medication. Patient was to follow- up with her OB gynecological oncologist concerning her pelvic mass. Home Medications: Medications to take at Discharge NK [NK] 09/05/17 Primary Care Physician: Merly Rahman DO [Primary Care Provider] - Disposition: Home Minutes spent on discharge:: 25 Patient Condition:: Stable Medical Necessity - Tobacco Use Smoking Status: Former smoker Tobacco Use: Non-smoker Meaningful Use Info Meaningful Use Diagnoses (Choose all that apply): None applicable Code Visit OBSV E&M: 01000 Observation care discharge
== END 2017-09-10 12:00 | disposition home or self-care (01) ==
LOC: ED 13:40 → SDC 16:07 → MS3 17:31
PROVIDERS: Urology; Emergency Provider Emergency Medicine; Family Provider Internal Medicine; PCP Internal Medicine
PROC: (CPT 52332; principal; 2017-09-07 16:00)
DX: N13.1 Hydronephrosis with ureteral stricture, not elsewhere classified (principal); D48.7 Neoplasm of uncertain behavior of other specified sites; E87.6 Hypokalemia; I10 Essential (primary) hypertension; N17.9 Acute kidney failure, unspecified; Z87.891 Personal history of nicotine dependence
CPT/HCPCS: 00910; 52332; 36415; 74177; 76000; 80048; 80053; 81001; 83690; 85025; 96361; 96374; 96375; 96376; 99218; 99285; J7030; J7040; J7120; Q9967; A4216; C1769; C2617; G0378; J2405

== ENCOUNTER → 2017-09-30 07:21 | Outpatient (CLI) | payer OTHER, SELFPAY ==
--- NOTE | 2017-09-30 07:00 | PET_ITS ---
EXAMINATION: FDG PET CT INDICATIONS: A 37-year-old female with reported history of cervical carcinoma presenting for apparent initial staging examination. COMPARISON EXAMINATION: CT of the abdomen and pelvis report dated 09/07/17. INDEX LESION SIZE SUV INTERPRETATION Lower pelvis uterine cervix 6.3 cm x 5.7 cm (frame 97) 14.3 Fulfills quantitative criteria for viable neoplasm Pelvic mesentery soft tissue lymphadenopathy 18.3 mm largest (frame 101) 6.8 (max) Fulfills quantitative criteria for viable neoplasm Right hemithorax pulmonary parenchyma (n = multiple) 39.2 mm largest (frame 229) 8.5 (max) Fulfills quantitative criteria for viable neoplasm Right anterior iliac wing 2.5 Fulfills quantitative criteria for viable osseous neoplasm NON-INDEX LESION SIZE SUV INTERPRETATION Left hemithorax pulmonary parenchyma 0.9 Quantitative criteria for viable neoplasm are not fulfilled TECHNIQUE: Following the intravenous administration of 15.06 mCi of F-18 deoxyglucose via the left forearm, multiplanar image acquisitions of the neck, chest, abdomen and pelvis to level of mid thigh, obtained at one hour post radiopharmaceutical administration contemporaneously interpreted with the current CT of the neck, chest, abdomen and pelvis to level of mid thigh, dated 09/30/[address] of the abdomen and pelvis report dated 09/07/17 reveal: SERUM GLUCOSE LEVEL: 104 mg/dl. HEIGHT: 64 inches. WEIGHT: 189 lbs. FINDINGS: 1. Heterogeneous increased glucose metabolism is defined in the lower pelvis contiguous to the lower portion of the uterus, uterine cervix generating a calculated maximum standard uptake value of 14.3. The maximal axial diameter of the corresponding metabolic, morphologic abnormality on review of CT of the pelvis dated 09/30/17 is 6.3 cm (transverse) x 5.7 cm (AP). 2. Several foci of labeled glucose uptake are visualized in the mid-lower pelvic mesentery corresponding to soft tissue adenopathy generating a calculated maximum standard uptake value of 6.8. The maximal axial diameter of the largest corresponding hypermetabolic soft tissue density on review CT of the pelvis dated 09/30/17 is 18.5 mm (AP). 3. An increase in radiopharmaceutical concentration is manifest in the right hemithorax pulmonary parenchyma, multifocal in presentation generating a calculated maximum standard uptake value of 8.5. The maximal axial diameter of the largest individual parenchymal density appears perispinal in location on review of CT of the thorax dated 09/30/17 is 39.2 mm (AP). 4. There is a focal increased in glucose concentration observed in the distribution of the right anterior iliac wing generating a calculated maximum standard uptake value of 2.5. Quantitative criteria for viable osseous neoplasm are fulfilled. 5. Subtle, barely perceptible increased glucose concentration is defined in the left hemithorax pulmonary parenchyma generating a calculated standard uptake value of 0.9. Quantitative criteria for viable neoplasm are not fulfilled. 6. Normal physiologic distribution of the radiopharmaceutical is apparent in the hepatic (3.4) and splenic parenchyma, both renal units, bladder and visualized intestinal tract. There is uniform distribution of the radiopharmaceutical concentration compared on the cerebellar hemispheres and cerebral cortex. Diffuse intestinal tract activity is noted throughout all four quadrants of the abdominal-pelvic retroperitoneum, mesentery consistent with normal physiologic distribution of the radiopharmaceutical. Pertinent CT findings are as follows. CHEST: Right-left axillary soft tissue densities with fatty hilus formation are non-glucose avid. A small right hemithorax pleural effusion demonstrates no evidence of quantitatively significant enhanced glucose metabolism. Parenchymal densities noted in the left hemithorax pulmonary parenchyma demonstrate no evidence of quantitatively significant enhanced glucose metabolism. ABDOMEN AND PELVIS: There is borderline fatty metamorphosis defined within the hepatic parenchyma. Bilateral ureteral stent placement is defined. Right-left inguinal soft tissue densities with fatty hilus formation demonstrate no evidence of quantitatively significant enhanced glucose metabolism. SKELETAL: Degenerative changes defined in the cervical, thoracic and lumbar spine demonstrate no evidence for glucose hypermetabolism. PET/PET/CT Tumor Base -Thigh Subs IMPRESSION: 1. ABNORMAL EXAMINATION INDICATIVE OF MALIGNANT VIABLE NEOPLASM. 2. Increased glucose concentration identified in the lower pelvis contiguous to the uterine cervix fulfills quantitative criteria for viable neoplasm. 3. Viable neoplasm-metastasis appears evident in the mid-lower pelvic mesentery corresponding to soft tissue lymph nodes, lymphadenopathy. 4. Multiple right hemithorax pulmonary parenchymal hypermetabolic abnormalities fulfill quantitative criteria for viable neoplasm commensurate with pulmonary parenchymal metastatic disease. (Dinora et al, Annals of Internal Medicine, 138:724, 2003). 5. Facilitated labeled glucose uptake noted in the right anterior iliac wing fulfills quantitative criteria for isolated viable osseous neoplasm metastatic involvement. (Ravin et al, Clinical Nuclear Medicine 29:161, 2004). 5. Minimally hypermetabolic abnormalities noted in the left upper and mid hemithorax pulmonary parenchyma do not fulfill quantitative criteria for viable neoplasm. (Farias et al, Annals of Internal Medicine, 138:724, 2003). Electronic Signature Franc Tafoya D.O. Electronically Signed: Franc Tafoya DO at 23:28 EDT Tel , Service support ,
== END ==
PROVIDERS: Family Provider Internal Medicine; PCP Internal Medicine; Visit Provider Obstetrics & Gynecology Gynecologic Oncology
DX: C53.1 Malignant neoplasm of exocervix (principal); G89.3 Neoplasm related pain (acute) (chronic)
CPT/HCPCS: 78815; A9552; A4216

== ENCOUNTER 2017-10-20 11:10 | Inpatient (IN) | payer OTHER, SELFPAY ==
[2017-10-20] VITALS (20 sets, daily range): BP systolic 93–153; BP diastolic 45–75; PULSE 101–132; RESP 10–18; TEMP 36.4–37.1; O2SAT 89–100; BMI 31.8; BMI 31.9
[2017-10-20 11:35] LABS: Bedside Glucose 146 mg/dL (70-110)
[2017-10-20] MEDS: 0.9% Normal Saline 1,000 ML 1000 ML IV ×2 (11:59)
[2017-10-20] MEDS: Ondansetron 4 MG/2 ML Vial IV (11:59)
[2017-10-20 12:15] LABS: Absolute Lymphocyte Count 1.25 X10^3/ul (0.83-4.51); Absolute Neutrophil Count 16.9 X10^3/uL (2.0-7.7); Basophil# 0.02 X10^3/uL; Basophil% 0.1 % (0-1); Eosinophil# 0.13 X10^3/uL; Eosinophils% 0.7 % (0-5); Hematocrit 30.1 % (37-47); Hemoglobin 9.5 g/dl (12.0-15.0); Lymphocyte # 1.25 X10^3/ul (4.0); Lymphocyte % 6.6 % (19-41); Mean Corp Hgb Conc 31.6 g/gl (32-36); Mean Corpuscular Hgb 24.7 pg (27.0-32.0); Mean Corpuscular Volume 78.2 fL (81-99); Mean Platelet Vol. 8.3 fl (6.2-12.0); Monocyte% 2.6 % (0-10); Neutrophil % 89.5 % (47-70); Platelet Count 492 K/mm3 (150-450); RBC Distribution Width CV 15.4 % (11.6-14.6); RBC Distribution Width SD 43.8 fl (35.1-43.9); Red Blood Count 3.85 M/mm3 (4.2-5.4); White Blood Count 18.9 K/mm3 (4.4-11.0)
[2017-10-20 12:22] LABS: POSITIVE COUNT NO; POSITIVE DIFFERENTIAL NO; POSITIVE MORPHOLOGY NO
--- NOTE | 2017-10-20 12:28 | RAD_ITS ---
STUDY: X-RAY CHEST REASON FOR EXAM: Female, 37 years old. Weakness TECHNIQUE: Portable upright chest COMPARISON: None. FINDINGS: Right lower lobe infiltrates partially silhouetting the hemidiaphragm, most consistent with pneumonia. Right mid to upper lung clear. Left lung clear. Normal cardiomediastinal silhouette, anaid and pleural margins. No acute osseous or upper abdominal process. RAD/Chest 1 View (Portable) IMPRESSION: Right lower lobe pneumonia. Electronically Signed: Franc Gregg, at 13:04 EDT Tel , Service support ,
[2017-10-20 12:35] LABS: Mucous, Urine 0 SEEN /hpf (<or=2+)
[2017-10-20 12:40] LABS: Color, Urine Amber (Yellow); Glucose, Dipstick Normal (Normal); Ketone-Dipstick 5 mg/dl (Negative); Lactic Acid 1.1 mmol/L (0.4-2.0); Leukocyte Esterase-Dipstick 500 /ul (Negative); Nitrite-Dipstick Negative (Negative); Occult Blood-Urine 250 /ul (Negative); Protein-Dipstick 100 mg/dl (Negative); Specific Gravity, Urine 1.015 (1.002-1.030); Urine Clarity Cloudy (Clear); Urine Urobilinogen Normal (Normal)
[2017-10-20 12:42] LABS: Urine Bilirubin Dipstick 1 mg/dL (Negative)
[2017-10-20 12:48] LABS: Bacteria 2+ /hpf (None Seen); Red Blood Cells-Urine 50-100 SEEN /hpf (0-5); Squamous Epithelial Cells - UA 0-5 SEEN /hpf (5-10); White Blood Cells 0-5 SEEN /hpf (0-5)
[2017-10-20 13:29] LABS: ALB/GLOB Ratio 0.5 RATIO (0.9-2.4); AST(SGOT) 13 U/L (15-37); Alanine Aminotransfer ALT/SGPT 11 U/L (13-56); Albumin, Serum 2.6 g/dL (3.2-5.0); Alkaline Phosphatase 101 U/L (45-117); Anion Gap 16 (5-15); BUN 77 mg/dL (7-18); BUN/Creat Ratio 7.8 RATIO (10-20); Calcium,Total 8.7 mg/dL (8.5-10.1); Chloride 91 mmol/L (98-107); Creatinine, Serum 9.83 mg/dL (0.55-1.02); EST Glomerular Filtration Rate 5 mL/min (>60); Est Glom Filt Rate - Afr Amer 6 mL/min (>60); Estimated Creatinine Clearance 6.64 ml/min; Globulin 5.1 g/dL (2.2-4.2); Glucose 121 mg/dL (74-106); Potassium 4.1 mmol/L (3.5-5.1); Protein, Total 7.7 g/dL (6.4-8.2); Sodium Level 133 mmol/L (136-145)
--- NOTE | 2017-10-20 13:40 | ED.VISSUMM ---
- ER Visit Summary Date of Service: 10/20/17 Chief Complaint: [] History of Present Illness: The patient is a 37 F [vomiting and confusion presents to the emergency department with complaint of confusion and vomiting today. Patient has a history of cervical cancer and received first round of chemotherapy yesterday with Dr. Diop. Per her father who is with her she has been more confused and more lethargic today. Patient's been having vomiting and dry heaves. No diarrhea. Patient denies any headache, chest pain, abdominal pain, or any pain anywhere. Patient denies urinary symptoms.] Physical Examination: [HEENT-PERRLA, EOMI. Cranial nerves II through XII grossly intact. TMs clear. Mucous membranes dry. No adenopathy. Cardiovascular-regular and tachycardic. No murmurs auscultated. Lungs-clear to auscultation, as well as stable with no crepitus or subcu emphysema Abdomen-normoactive bowel sounds, soft, nontender, no rebound or rigidity, no peritoneal signs. Extremities-intact ?4, normal range of motion, normal pulses, atraumatic], no rashes Test Results: [CBC with differential obtained showed a white count of 18.9, hemoglobin 9.5, hematocrit 30, platelets 192. Chemistries show sodium 133, potassium 4.1, chloride is 91, CO2 26, glucose 121, BUN 77 and creatinine was 9.83. LFTs were unremarkable. Lactate was 1.1] Emergency Department Course and Treatment: [Patient had blood cultures ordered as well as a urine culture. I did send off a CPK due to the fact that the nursing staff stated the urine had a foul odor and was brown in color. Patient apparently was started on Zosyn due to elevated white blood cell count and concern for infection in the urine. Patient did have an episode of hypotension in the emergency department with systolic blood pressures in the 70s and has received approximately 3 L of normal saline at this point and her blood pressure is improved now into the 90 systolic. There are no old lab values for her renal function in the computer although she tells me she has had a history of renal stents in the past. Gutierrez catheter was placed.] Treatment Plan: [Admit for IV hydration and further evaluation of kidney function. Admit for IV antibiotics] Disposition: [Admit] Impression: [Vomiting Renal failure Dehydration Urinary tract infection] This note was generated with [employer] dictation software. It may contain incorrect words, spelling, and punctuation that were not noted in review of the chart prior to signing ED Disposition - Plan for ED Patient: Chief Complaint: Nausea/Vomiting Referrals: Merly Rahman DO [Primary Care Provider] -
--- NOTE | 2017-10-20 13:45 | CT_ITS ---
STUDY: CT ABDOMEN AND PELVIS WITHOUT CONTRAST REASON FOR EXAM: Female, 37 years old. HEMATURIA. RECENT CHEMO FOR CERVICAL CANCER. RADIATION DOSAGE (If Supplied By Facility): CTDIvol = ( 11.63 ) mGy, DLP = ( 682.61 ) mGycm TECHNIQUE: Transaxial images were obtained from the dome of the diaphragm to the symphysis pubis without oral contrast, and without intravenous contrast. Sagittal and coronal images were reconstructed. Individualized dose optimization techniques were used for this CT. COMPARISON: None. FINDINGS: There is a right lung consolidation. The visualized portions of the heart are within normal limits. Normal liver. Normal gallbladder and extrahepatic biliary system. Normal spleen. Normal pancreas. Normal bilateral adrenal glands. There is bilateral ureteral stents. Normal visualized stomach. Normal small intestine. Normal colon. The appendix is visualized and appears normal. Normal abdominal aorta. Normal inferior vena cava. Normal retroperitoneum. Normal urinary bladder. Normal abdominal wall. There are diffuse degenerative changes of the visualized lumbar spine. CT/Abdomen/Pelvis without Cont IMPRESSION: Right lung consolidation. Further evaluation with dedicated CT of the chest can be obtained. Bilateral renal stents in place. Electronically Signed: Jama Adams MD at 14:53 EDT Tel , Service support ,
[2017-10-20 13:54] LABS: CPK Total, Creatine Kinase 53 U/L (26-192)
--- NOTE | 2017-10-20 14:08 | PCM.HP.STD ---
Problem List (1) JENNI (acute kidney injury) Status: Acute (2) Cervical cancer Status: Chronic Qualifiers: Malignant neoplasm of cervix location: unspecified location Qualified Code(s): C53.9 - Malignant neoplasm of cervix uteri, unspecified (3) HCAP (healthcare-associated pneumonia) Status: Chronic History of Present Illness Date of Admission: 10/20/17 Chief Complaint: Lethargy, nausea and vomiting - 1 day This patient is coming on under 2 medical records which needs to be merged on 10/21/17. Was previously here under: Fabiola Meyer [id number] The patient is a 37 year old F with recent diagnosis of cervical cancer, recently admitted and discharged on 09/08/2017 with JENNI/right hydronephrosis. She has history of left hydronephrosis status post stent and got right stent put in by Dr. Carrizales. Her discharge creatinine was 1.13. Patient has since followed up with Dr. Diop, according to her father, and has had 2 chemotherapy; the last one was yesterday, 10/19/17. She comes in with complaints of nausea, vomiting, confusion since having a chemotherapy yesterday. Patient is still confused and history was taken from her father who states that she has been more confused and sleepy today. She lives with her parents. Denies any diarrhea. On her admitting medication reconciliation, she is on valsartan/hydrochlorothiazide. Vitals on admission is 90 7.5F, heart rate is 130, blood pressure is 93/59, respiratory rate is 16, SPO2 is 94% on room air. When the nurse was passing the Gutierrez catheter in the ER, urine was said to be about 400 mils and straight cath, cloudy foul-smelling, slightly purulent. Admitting blood work showed WBC count of 18.9, hemoglobin 9.5, platelet count of 492, sodium 133, potassium 4.1, chloride 91, bicarbonate 26, BUN 77, creatinine 9.83, CK was 53 Past Medical History Past Medical History (Chronic Problems): Chronic Problems Cervical cancer (Chronic) HCAP (healthcare-associated pneumonia) (Chronic) Allergies No Known Allergies Allergy (Verified 10/20/17 11:13) Home Medications: Ambulatory Orders Medication Instructions Recorded Ondansetron [Zofran Odt] 4 mg PO Q8H 10/20/17 Oxycodone HCl/Acetaminophen 1 tablet PO Q4H PRN PRN 10/20/17 [Percocet 5/325] Sennosides [Senna Laxative] 8.6 mg PO DAILY 10/20/17 Sertraline HCl [Zoloft] 50 mg PO DAILY 10/20/17 Valsartan/Hydrochlorothiazide 1 each PO DAILY 10/20/17 [Valsartan-Hctz 160-12.5 mg Tab] Surgical History: no surgical history Psychiatric History: Anxiety, Depression 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 Lives: With Family Smoking Status: Former smoker Tobacco Use: Non-smoker Alcohol: None Drugs: None - *Family History Maternal History Items: No pertinent history Paternal History Items: No pertinent history Review of Systems Unable to obtain accurate/complete ROS d/t: Patient is lethargic VTE Information - Inpt Only VTE Present on Admission: No VTE Pharm Prophylaxis ordered?: Yes Patient Problems: Active and Suspected Problems JENNI (acute kidney injury) (Acute) - Physical Exam General: Alert, Cooperative, Confused - Oriented to person, place, year but not to month or time, keeps repeating 2017 2017 HEENT: Atraumatic, PERRLA, EOMI, Normocephalic Oral: Dry Mucosa Neck: Supple Lungs: Clear to auscultation, Normal air movement Cardiovascular: Regular rate, Regular Rhythm, Normal S1, Normal S2, No murmurs Abdomen: Bowel Sounds Present, Soft, Non Tender, Non-Distended, No Hepato-splenomegaly Extremities: No edema Skin: No rashes, No breakdown Musculoskeletal: No Tenderness to Palpation of Joints or Extremities Lymphatic: No Cervical, Supraclavicular, or Inguinal Adenopathy Neurological: Cranial nerves II-XII grossly intact, Neuro grossly intact Psych/Mental Status: Normal Affect, Appropriate Vital Signs Temp Pulse Resp BP Pulse Ox 97.5 F L 104 H 12 94/45 L 99 10/20/17 11:13 10/20/17 13:08 10/20/17 13:08 10/20/17 13:08 10/20/17 13:08 Oxygen Flow Rate (L/min) 2 Oxygen Delivery Method Nasal Cannula Weight: 79.5 kg Body Mass Index (BMI) 30.0 Laboratory Tests Past 24 Hrs 10/20/17 10/20/17 10/20/17 12:00 12:00 12:00 WBC 18.9 H RBC 3.85 L Hgb 9.5 L Hct 30.1 L MCV 78.2 L MCH 24.7 L MCHC 31.6 L RDW 15.4 H RDW Differential 43.8 Plt Count 492 H MPV 8.3 Immature Gran % (Auto) 0.500 Neut % (Auto) 89.5 H Lymph % (Auto) 6.[address] [place] % (Auto) 2.6 Eos % (Auto) 0.7 Baso % (Auto) 0.1 Absolute Neuts (auto) 16.9 H Absolute Lymphs (auto) 1.25 Total Counted Not Reportable Sodium Cancelled Potassium Cancelled Chloride Cancelled Carbon Dioxide Cancelled Anion Gap Cancelled BUN Cancelled Creatinine Cancelled Estim Creat Clear Calc Cancelled Est GFR (MDRD) Af Amer Cancelled Est GFR (MDRD) Non-Af Cancelled BUN/Creatinine Ratio Cancelled Glucose Cancelled Lactic Acid 1.1 Calcium Cancelled Total Bilirubin Cancelled AST Cancelled ALT Cancelled Alkaline Phosphatase Cancelled Total Creatine Kinase Total Protein Cancelled Albumin Cancelled Globulin Cancelled Albumin/Globulin Ratio Cancelled Urine Color Urine Clarity Urine pH Ur Specific [place] Urine Protein Urine Glucose (UA) Urine Ketones Urine Occult Blood Urine Nitrite Urine Bilirubin Urine Urobilinogen Ur Leukocyte Esterase Urine RBC Urine WBC Ur Squamous Epith Cells Urine Bacteria Urine Mucus 10/20/17 10/20/17 10/20/17 12:00 13:00 13:00 WBC RBC Hgb Hct MCV MCH MCHC RDW RDW Differential Plt Count MPV Immature Gran % (Auto) Neut % (Auto) Lymph % (Auto) [facility] % (Auto) Eos % (Auto) Baso % (Auto) Absolute Neuts (auto) Absolute Lymphs (auto) Total Counted Sodium 133 L Potassium 4.1 Chloride 91 L Carbon Dioxide 26.0 Anion Gap 16 H BUN 77 H Creatinine 9.83 H* Estim Creat Clear Calc 6.64 Est GFR (MDRD) Af Amer 6 L Est GFR (MDRD) Non-Af 5 L BUN/Creatinine Ratio 7.8 L Glucose 121 H Lactic Acid Calcium 8.7 Total Bilirubin 0.30 AST 13 L ALT 11 L Alkaline Phosphatase 101 Total Creatine Kinase 53 Total Protein 7.7 Albumin 2.6 L Globulin 5.1 H Albumin/Globulin Ratio 0.5 L Urine Color Fang Urine Clarity Cloudy Urine pH 5.0 Ur Specific [place] 1.015 Urine Protein 100 H Urine Glucose (UA) Normal Urine Ketones 5 H Urine Occult Blood 250 H Urine Nitrite Negative Urine Bilirubin 1 H Urine Urobilinogen Normal Ur Leukocyte Esterase 500 H Urine RBC 50-100 SEEN Urine WBC 0-5 SEEN Ur Squamous Epith Cells 0-5 SEEN Urine Bacteria 2+ Urine Mucus 0 SEEN POC Glucose 10/20/17 11:28 POC Glucose 146 H Assessment/Plan All Active Problems JENNI (acute kidney injury) (Acute) 37 year old F with recent diagnosis of cervical cancer, recently admitted and discharged on 09/08/2017 with JENNI/right hydronephrosis. She got a right ureteral stent placed. Her discharge creatinine was 1.13. She had chemotherapy yesterday and presents with nausea vomiting and confusion. 1. Altered mental status/acute metabolic encephalopathy secondary to acute kidney injury, patient is confused and lethargic, improved with IV fluids in the ED Plan: Admit to ICU, monitor on telemetry, monitor mentation closely 2. Acute kidney injury, likely prerenal in the setting of recent nausea and vomiting from chemotherapy with ongoing use of output and diuretic, history of bilateral renal stents, no hydronephrosis seen on CT of the abdomen and pelvis, patient looks severely dehydrated No electrolyte imbalance seen on BMP except for mild hyponatremia. Plan: IV fluids, strict I's and O's, Gutierrez catheter, nephrology consult, ultrasound of the kidneys, urine sodium, urea. 3. Possible Complicated UTI, in the setting of bilateral ureteral stents, and is lethargic and cannot answer accurately, UA shows cloudy foul-smelling urine, occult blood 250, leukocyte esterase 500, although WBC count 0-5 Plan: Continue IV Zosyn started in the ED, follow-up on urine cultures 4. Sepsis secondary to complicated UTI and HCAP, present on admission, patient came in with tachycardia of 130, elevated WBC, lactic acid is 1.1, started on IV Zosyn, will continue same 5. HCAP, patient recently admitted, immunocompromised, on chemotherapy, right sided lower infiltrate noted on x-ray and confirmed with CT scan of the abdomen, will continue only on Zosyn renal dose, will not start patient on Cipro or vancomycin yet on account of renal failure. 6. Cervical cancer, on chemotherapy, no history of any pathology reports, will consult Dr. Diop, get medical records 7. Anemia, microcytic microchromic, Hb is 9.5, will check iron stores 8. DVT prophylaxis with heparin subcu Code Visit Inpatient E&M: 71236 Init Hosp L3
--- NOTE | 2017-10-20 14:46 | US_ITS ---
STUDY: RENAL ULTRASOUND - COMPLETE REASON FOR EXAM: Female, 37 years old. Acute renal failure TECHNIQUE: Ultrasound evaluation of the kidneys was performed with real-time and static reid-scale imaging. COMPARISON: CT abdomen and pelvis 10/20/2017 FINDINGS: RIGHT KIDNEY: 13.7 x 6.7 x 7.0 cm. Normal cortical thickness 2.6 cm. Normal cortical echotexture. There is no mass, cyst, or calculus. There is very slight ectasia of the calyces. The renal pelvis is nondilated. LEFT KIDNEY: 12.3 x 6.1 x 6.5 cm. Normal cortical thickness 2 cm. Normal cortical echotexture. There is no mass, cyst, or calculus. There is slight ectasia of the calyces, without ectasia of the renal pelvis. There is a history of ureteral stents seen on the CT study of 10/20/2017. Stents are not visualized. BLADDER: Bladder is decompressed by Gutierrez catheter, and not well characterized. US/Kidney and Bladder IMPRESSION: Slight ectasia of the calyces of each kidney without dilatation of the renal pelvis. Normal renal cortical thickness and echotexture. Electronically Signed: Franc Gregg, at 11:21 EDT Tel , Service support ,
[2017-10-20] MEDS: 0.9% Normal Saline 1,000 ML 150 ML IV ×2 (14:55→21:23)
[2017-10-20 15:08] LABS: Urine Chloride 45 mmol/L (Not Establ.); Urine Sodium 59 mmol/L (Not Establ.)
[2017-10-20 15:47] LABS: Ferritin 315 ng/mL (8-252); Iron 21 ug/dL (50-170); Iron Binding Capacity,Total 180 ug/dL (250-450); PERCENT IRON SATURATION 11.7 % (15.0-55.0)
[2017-10-20 16:30] LABS: M R Staph aureus DNA By PCR Negative (Negative); Probe Check PASS; Specimen Processing Control PASS
--- NOTE | 2017-10-20 17:07 | PCM.CONS.R ---
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 Denied fever, chills, cough, SOB, diarrhea. Denied suprapubic pain, flank pain but did notice drop in urine output. She has not noticed blood in her urine but mom states her urine has been dark in the past. She was found to be in JENNI with creatinine at 9.8 with muddy brown urine in ER with hypotension, tachycardia. She received fluid bolus in ER and continues on maintenance fluids at 150cc/hr. She denied lightheadedness, dizziness, syncope, falls. Denied chest pain, shortness of breath. Denied tremors. Her parents at bedside states she has been losing weight 30# past 2 months with increased weakness after starting palliative radiation therapy x4 treatments. There was discussion about chemotherapy with platin therapy after radiation according to Dr. Diop. Creatinine was 1.13 on 09/08 after right ureteral stent placement on 09/07. Left ureteral stent was placed day prior. Creatinine was 1.3 on 09/25/17. She apparently is taking valsartan/HCTZ at home for hypertension started not too long ago. CT abdomen done in ER did not show hydronephrosis with bilateral stents in place. She had a right lung infiltrate. - Allergies Allergies: Allergies No Known Allergies Allergy (Verified 10/20/17 11:13) - Current Medications Current Medications: Current Medications Acetaminophen (Tylenol) 650 mg PO Q6H PRN PRN PRN Reason: Mild Pain (1-3)/Temp > 100.7 F Heparin Sodium (Porcine) (Heparin Na) 5,000 unit SC BID MITA Sodium Chloride () 1,000 mls @ 150 mls/hr IV .Q6H40M MITA Last Admin: 10/20/17 14:55 Dose: 150 mls/hr Piperacillin Sod/Tazobactam Sod (Zosyn) 3.375 gm in 50 mls @ 12.5 mls/hr IV Q12 MITA Magnesium Hydroxide (Milk Of Magnesia) 30 ml PO DAILY PRN PRN PRN Reason: Constipation Ondansetron HCl (Zofran) 4 mg IV Q8H PRN PRN PRN Reason: NAUSEA Oxycodone HCl (Oxyir) 5 mg PO Q6H PRN PRN PRN Reason: MOD-SEVERE PAIN (4-10/10) Psyllium Hydrophilic Mucilloid (Metamucil) 1 packet PO DAILY PRN PRN PRN Reason: CONSTIPATION Sodium Chloride () 5 - 30 ml IV UD PRN PRN Reason: SALINE FLUSH - Past Medical History Past Medical History (Chronic Problems): Chronic Problems Cervical cancer (Chronic) HCAP (healthcare-associated pneumonia) (Chronic) - Past Surgical History Surgical History: no surgical history - Social History Marital Status: Single - lives with parents, works at [employer] Smoking Status: Former smoker Alcohol: None Drugs: None - Family History Maternal History Items: No pertinent history Paternal History Items: No pertinent history Review of Systems Constitutional: Reports: Anorexia, Malaise, Weakness, Fatigue. Denies: Chills, Fever HEENT: Denies: Head Aches Cardiovascular: Denies: Chest Pain, Edema, Syncope Respiratory: Denies: Cough, Shortness of Breath Gastrointestinal: Reports: Nausea, Vomiting. Denies: Abdominal Pain, Diarrhea, Hematochezia Genitourinary: Reports: - - decrease in urine output. Denies: Dysuria Gynecological: Reports: - - no vaginal or pelvic pain, bleeding Musculoskeletal: Denies: Back Pain, Joint swelling Neurological: Reports: Confusion, - - generalized weakness. Denies: Balance problems, Focal weakness, Tremor, Seizures Psychiatric: Reports: Anxiety, Depression Hematologic/ Lymphatic: Reports: Anemia - Physical Exam General: Alert, Oriented x3, Cooperative, No apparent distress HEENT: PERRLA, EOMI Oral: Dry Mucosa Neck: Supple, No JVD Lungs: Clear to auscultation Cardiovascular: No rub noted, Tachycardic Abdomen: Bowel Sounds Present, Soft, Non Tender, Non-Distended Extremities: No edema Skin: No rashes, - - +tattoos Musculoskeletal: No Muscle Wasting Lymphatic: No Cervical, Supraclavicular, or Inguinal Adenopathy Neurological: Cranial nerves II-XII grossly intact, - - no tremor, no asterixis Psych/Mental Status: Anxious, Depressed, Alert and oriented to time, place, person, mood and affect Vital Signs Temp Pulse Resp BP Pulse Ox 98.5 F 125 H 14 140/72 H 99 10/20/17 15:00 10/20/17 17:00 10/20/17 17:00 10/20/17 17:00 10/20/17 17:00 Oxygen Flow Rate (L/min) 2 Oxygen Delivery Method Nasal Cannula Weight: 81.601 kg Body Mass Index (BMI) 31.8 Laboratory Tests Past 24 Hrs 10/20/17 14:50 MRSA (PCR) Negative Clinical Impression(s) from Imaging Studies Chest X-Ray 10/20/17 12:28 IMPRESSION: Right lower lobe pneumonia. Electronically Signed: Franc Gregg at 13:04 EDT Tel , Service support , Abdomen/Pelvis CT 10/20/17 13:45 IMPRESSION: Right lung consolidation. Further evaluation with dedicated CT of the chest can be obtained. Bilateral renal stents in place. Electronically Signed: Jama Adams MD at 14:53 EDT Tel , Service support , Assessment/Plan All Active Problems JENNI (acute kidney injury) (Acute) 1. Acute kidney injury ischemic ATN vs prerenal azotemia from dehydration, hypotension. Baseline creatinine 1.13 on 09/08, 1.3 on 09/25 after initiating radiation therapy, now at 9.8 with nausea, vomiting past 2 days, wt loss 30# over 2 months with anorexia since initiating radiation therapy. Will continue with aggressive hydration. No tremor, altered mental status at this time to initiate urgent dialysis. FeNA 2%. Hold valsartan/hctz. spoke with pt and pt parents at bedside re possible dialysis if renal fxn not improved wtih hydration. Evaluate for obstruction with hx bilateral ureteral stents due to obstructive uropathy from pelvic mass. 2. Hypotension, tachycardia with leukocytosis. Evaluate for sepsis, UTI. Cx sent. Pt asymptomatic 3 Stage 4 cervical cancer with mets to lung, bones, LN s/p palliative radiation therapy x4 for pelvic pain, DUB. Hematology consulted 4. RLL infiltrate. Hx lung mets 5. Hematuria likely due to stents 6. Hx HTN recently started on valsartan/hctz. Continue to hold.
[2017-10-20] MEDS: 0.9% NaCl IVPB Med Flush (250 mL) 15 ML IV (21:20)
[2017-10-20] MEDS: Piperacil/Tazobactam 3.375 GM/50 ML ML IV (21:23)
[2017-10-20] MEDS: Heparin Injection (Vial) 5,000 UNIT/ML VIAL 5000 UNIT SC (21:24)
[2017-10-21] VITALS (17 sets, daily range): BP systolic 111–154; BP diastolic 46–87; PULSE 76–117; RESP 14–21; TEMP 36.7–37.3; O2SAT 95–100
[2017-10-21] MEDS: 0.9% Normal Saline 1,000 ML 150 ML IV ×4 (04:01→23:39)
[2017-10-21] MEDS: 0.9% NaCl Peripheral Flush Adult/Peds IV (04:10)
[2017-10-21 04:36] LABS: Hematocrit 25.8 % (37-47); Hemoglobin 8.2 g/dl (12.0-15.0); Mean Corp Hgb Conc 31.8 g/gl (32-36); Mean Corpuscular Hgb 25.2 pg (27.0-32.0); Mean Corpuscular Volume 79.4 fL (81-99); Mean Platelet Vol. 8.1 fl (6.2-12.0); Platelet Count 423 K/mm3 (150-450); RBC Distribution Width CV 14.9 % (11.6-14.6); RBC Distribution Width SD 41.2 fl (35.1-43.9); Red Blood Count 3.25 M/mm3 (4.2-5.4)
[2017-10-21 04:45] LABS: Albumin, Serum 2.1 g/dL (3.2-5.0); BUN 66 mg/dL (7-18); BUN/Creat Ratio 15.3 RATIO (10-20); Calcium,Total 8.5 mg/dL (8.5-10.1); Chloride 102 mmol/L (98-107); EST Glomerular Filtration Rate 12 mL/min (>60); Est Glom Filt Rate - Afr Amer 15 mL/min (>60); Estimated Creatinine Clearance 14.53 ml/min; Glucose 110 mg/dL (74-106); Phosphorus 4.9 mg/dL (2.5-4.9); Potassium 3.9 mmol/L (3.5-5.1); Sodium Level 141 mmol/L (136-145)
[2017-10-21 04:49] LABS: Scan Indicated on CBC? Y/N NO
--- NOTE | 2017-10-21 06:22 | PCM.CON.CC ---
Reason for Consult Date of Consultation: 10/21/17 Reason for Consultation: Acute kidney injury History of Present Illness: The patient is a 37-year-old female, with a history as outlined below, who presented to the emergency department on October 20 with encephalopathy, weakness, nausea and vomiting. Patient's medical history is significant for stage IV cervical cancer with metastatic disease to the lung, bone and regional lymph nodes. The patient was recently admitted to the hospital in September, during which time, she had to undergo ureteral stent placement due to bilateral hydronephrosis in the setting of obstruction from a pelvic neoplasm. In addition, the patient also recently underwent a PET CT at the end of September 2017 which revealed findings concerning for viable neoplasm within the lower pelvis, right anterior iliac wing and right pulmonary parenchyma. She is currently being managed by Dr. Diop at [facility], and is currently receiving palliative radiation therapy. On presentation to the emergency department, the patient was noted to be afebrile, tachycardic and hypotensive. She was maintaining appropriate oxygen saturations on room air. Laboratory evaluation revealed elevated white blood cell count to 19,000 with evidence of microcytic anemia and thrombocytosis. Chemistry profile was notable for an elevated anion gap to 16 with a BUN and creatinine of 77 and 9.83, respectively. Serum lactate was normal at 1.1. CT abdomen/pelvis revealed evidence of a right lower lobe consolidation and bilateral renal stents. The patient received supplemental IV fluid hydration along with antibiotics. She was subsequently transferred to the medical intensive care unit, where she was later evaluated by nephrology. Past Medical History Past Medical History (Chronic Problems): Chronic Problems Cervical cancer (Chronic) HCAP (healthcare-associated pneumonia) (Chronic) Allergies No Known Allergies Allergy (Verified 10/20/17 11:13) Home Medications: Ambulatory Orders Medication Instructions Recorded Morphine Sulfate [Morphine Sulfate 30 mg PO QHS 10/20/17 ER] Ondansetron [Zofran Odt] 4 mg PO Q6H PRN 10/20/17 Oxycodone HCl/Acetaminophen 1 tablet PO Q4H PRN PRN 10/20/17 [Percocet 5/325] Sennosides [Senna Laxative] 2 tab PO BID 10/20/17 Sertraline HCl [Zoloft] 50 mg PO DAILY 10/20/17 Valsartan/Hydrochlorothiazide 1 each PO DAILY 10/20/17 [Valsartan-Hctz 160-12.5 mg Tab] Surgical History: no surgical history Lives: With Family Smoking Status: Former smoker Tobacco Use: Non-smoker Alcohol: None Drugs: None - *Family History Maternal History Items: No pertinent history Paternal History Items: No pertinent history Review of Systems Constitutional: Reports: Malaise, Weakness, Fatigue Eyes: Denies: Blurred vision, Double vision HEENT: Denies: Head Aches, Sinus Congestion, Sinus Drainage Cardiovascular: Denies: Chest Pain, Chest Tightness Respiratory: Denies: Cough, Shortness of Breath Gastrointestinal: Reports: Nausea, Vomiting. Denies: Abdominal Pain Genitourinary: Denies: Dysuria Musculoskeletal: Denies: Joint Pain, Joint Tenderness Skin: Denies: Rash, Wounds Neurological: Denies: Numbness, Tingling, Focal weakness Psychiatric: Reports: Depression Hematologic/ Lymphatic: Reports: Anemia Patient Problems: Active and Suspected Problems JENNI (acute kidney injury) (Acute) Objective: The patient's most recent lab work, culture data and imaging studies have all been personally reviewed. Blood and urine cultures are pending. - Physical Exam General: Alert, Cooperative, No apparent distress HEENT: Atraumatic, PERRLA, Normocephalic Oral: No Gingival or Mucosal Lesions/ Ulcerations Neck: Supple, No Nodes, Trachea Midline Lungs: No rhonchi, No wheeze, No rales, Diminished Cardiovascular: Normal S1, Normal S2, No murmurs, No rub noted, No Gallop, Tachycardic Abdomen: Bowel Sounds Present, Soft, Non Tender, - - Malodorous urine Extremities: No clubbing, No cyanosis, No edema Skin: No breakdown Musculoskeletal: No Tenderness to Palpation of Joints or Extremities Neurological: Neuro grossly intact Psych/Mental Status: Flat Affect Vital Signs Temp Pulse Resp BP Pulse Ox 98.1 F 101 H 21 H 140/59 H 98 10/21/17 04:00 10/21/17 05:00 10/21/17 05:00 10/21/17 05:00 10/21/17 05:00 Oxygen Flow Rate (L/min) 2 Oxygen Delivery Method Room Air Weight: 181 lb 3.52 oz Body Mass Index (BMI) 31.8 Intake and Output for Last 24 Hours 10/19/17 10/20/17 10/21/17 23:59 23:59 23:59 Intake Total 1724 / 1724 Output Total 775 / 775 Balance 949 / 949 Laboratory Tests Past 24 Hrs 10/20/17 10/21/17 10/21/17 14:50 04:15 04:15 WBC 11.0 RBC 3.25 L Hgb 8.2 L Hct 25.8 L MCV 79.4 L MCH 25.2 L MCHC 31.8 L RDW 14.9 H RDW Differential 41.2 Plt Count 423 MPV 8.1 Sodium 141 Potassium 3.9 Chloride 102 Carbon Dioxide 27.0 BUN 66 H Creatinine 4.30 H Estim Creat Clear Calc 14.53 Est GFR (MDRD) Af Amer 15 L Est GFR (MDRD) Non-Af 12 L BUN/Creatinine Ratio 15.3 Glucose 110 H Calcium 8.5 Phosphorus 4.9 Albumin 2.1 L MRSA (PCR) Negative Clinical Impression(s) from Imaging Studies Chest X-Ray 10/20/17 12:28 IMPRESSION: Right lower lobe pneumonia. Electronically Signed: Franc Gregg at 13:04 EDT Tel , Service support , Abdomen/Pelvis CT 10/20/17 13:45 IMPRESSION: Right lung consolidation. Further evaluation with dedicated CT of the chest can be obtained. Bilateral renal stents in place. Electronically Signed: Jama Adams MD at 14:53 EDT Tel , Service support , Assessment/Plan Active and Suspected Problems JENNI (acute kidney injury) (Acute) RECOMMENDATIONS: 1. Continue supplemental IV fluid hydration per nephrology recommendations. 2. Continue antibiotics, pending infectious workup 3. Continue oxycodone for pain 4. Continue appropriate DVT prophylaxis 5. The patient is medically stable for transfer out of the intensive care unit. IMPRESSIONS: 1. Sepsis secondary to complicated cystitis/HCAP The patient will be continued on supplemental IV fluid hydration. In addition, broad-spectrum antibiotics will be continued, pending infectious workup. If the patient does develop a productive cough, please send sputum for culture. The patient remains hemodynamically stable. 2. Acute kidney injury Likely prerenal in etiology. Creatinine is improving with volume expansion. Urine output is appropriate. Nephrology is following. No indication for renal replacement therapy at this time. Continue to hold home antihypertensive regimen. 3. Metabolic encephalopathy Likely secondary to the above. In addition, the patient was on long-acting morphine in the setting of acute renal insufficiency, which may also have contributed to her lethargy noted on presentation. She is improving clinically, nonetheless. 4. Metastatic cervical cancer, receiving palliative radiation/microcytic anemia Complicates care, management, recovery and prognosis. Awaiting oncology consultation. Continue to monitor blood counts accordingly. No indication for transfusion at this time. Recommend continuing oxycodone for pain, in lieu of extended release morphine, given renal insufficiency. This note was generated with [employer] dictation software. It may contain incorrect words, spelling, and punctuation that were not noted in checking the note before signing. Code Visit Inpatient E&M: 90736 Init Hosp L3
--- NOTE | 2017-10-21 07:55 | PN_ITS ---
Patient Problems: Active and Suspected Problems JENNI (acute kidney injury) (Acute) Vitals/I&O's: Vital Signs Temp Pulse Resp BP Pulse Ox 98.1 F 108 H 17 144/73 H 98 10/21/17 04:00 10/21/17 07:00 10/21/17 07:00 10/21/17 07:00 10/21/17 07:00 Oxygen Flow Rate (L/min) 2 Oxygen Delivery Method Room Air Weight: 82.2 kg Body Mass Index (BMI) 31.8 Intake and Output for Last 24 Hours 10/19/17 10/20/17 10/21/17 23:59 23:59 23:59 Intake Total 1724 / 1724 2258 / 2258 Output Total 775 / 775 800 / 800 Balance 949 / 949 1458 / 1458 Laboratory Results 10/20/17 14:50: MRSA (PCR) Negative 10/21/17 04:15: WBC 11.0, RBC 3.25 L, Hgb 8.2 L, Hct 25.8 L, MCV 79.4 L, MCH 25.2 L, MCHC 31.8 L, RDW 14.9 H, RDW Differential 41.2, Plt Count 423, MPV 8.1 10/21/17 04:15: Sodium 141, Potassium 3.9, Chloride 102, Carbon Dioxide 27.0, BUN 66 H, Creatinine 4.30 H, Estim Creat Clear Calc 14.53, Est GFR (MDRD) Af Amer 15 L, Est GFR (MDRD) Non-Af 12 L, BUN/Creatinine Ratio 15.3, Glucose 110 H , Calcium 8.5, Phosphorus 4.9, Albumin 2.1 L Current Medications Acetaminophen (Tylenol) 650 mg PO Q6H PRN PRN PRN Reason: Mild Pain (1-3)/Temp > 100.7 F Chlorhexidine Gluconate () 1 each TOPICAL DAILY [facility] Heparin Sodium (Porcine) (Heparin Na) 5,000 unit SC BID [facility] Last Admin: 10/20/17 21:24 Dose: 5,000 u Sodium Chloride () 1,000 mls @ 150 mls/hr IV .Q6H40M [facility] Last Admin: 10/21/17 04:01 Dose: 150 mls/hr Piperacillin Sod/Tazobactam Sod (Zosyn) 3.375 gm in 50 mls @ 12.5 mls/hr IV Q12 [facility] Last Admin: 10/20/17 21:23 Dose: 12.5 mls/hr Sodium Chloride () 250 mls @ 15 mls/hr IV .[id number] PRN PRN Reason: SALINE FLUSH Last Admin: 10/20/17 21:20 Dose: 15 mls/hr Magnesium Hydroxide (Milk Of Magnesia) 30 ml PO DAILY PRN PRN PRN Reason: Constipation Ondansetron HCl (Zofran) 4 mg IV Q8H PRN PRN PRN Reason: NAUSEA Oxycodone HCl (Oxyir) 5 mg PO Q6H PRN PRN PRN Reason: MOD-SEVERE PAIN (4-10/10) Psyllium Hydrophilic Mucilloid (Metamucil) 1 packet PO DAILY PRN PRN PRN Reason: CONSTIPATION Sodium Chloride () 5 - 30 ml IV UD PRN PRN Reason: SALINE FLUSH Last Admin: 10/21/17 04:10 Dose: 10 ml Medical Necessity - Tobacco Use Smoking Status: Former smoker Tobacco Use: Non-smoker Assessment/Plan All Active Problems JENNI (acute kidney injury) (Acute)
--- NOTE | 2017-10-21 07:59 | PCM.PN.HOSP ---
Patient Problems: Active and Suspected Problems JENNI (acute kidney injury) (Acute) Subjective: Patient is a 37-year-old lady with history of metastatic cervical CA chemo who presented with intractable nausea vomiting associated with some confusion and assessment of acute metabolic encephalopathy secondary to acute kidney injury made admitted for subsequent management Objective: GENERAL: Appears ill looking HEENT: Dry oral mucosa NECK; supple, normal thyroid, no distended JVD. CHEST: Clear to auscultation bilaterally, HEART: Regular S1 S2, tachycardiac ABDOMEN: soft, non-tender, normoactive bowel sounds, RECTAL: deferred EXTREMITIES: No edema, no clubbing, no cyanosis. FINGERNAIL TECHNICIAN: Awake; no lateralizing signs. SKIN: No Rash Vitals/I&O's: Vital Signs Temp Pulse Resp BP Pulse Ox 98.1 F 108 H 17 144/73 H 98 10/21/17 04:00 10/21/17 07:00 10/21/17 07:00 10/21/17 07:00 10/21/17 07:00 Oxygen Flow Rate (L/min) 2 Oxygen Delivery Method Room Air Weight: 82.2 kg Body Mass Index (BMI) 31.8 Intake and Output for Last 24 Hours 10/19/17 10/20/17 10/21/17 23:59 23:59 23:59 Intake Total 1724 / 1724 2258 / 2258 Output Total 775 / 775 800 / 800 Balance 949 / 949 1458 / 1458 Laboratory Results 10/20/17 14:50: MRSA (PCR) Negative 10/21/17 04:15: WBC 11.0, RBC 3.25 L, Hgb 8.2 L, Hct 25.8 L, MCV 79.4 L, MCH 25.2 L, MCHC 31.8 L, RDW 14.9 H, RDW Differential 41.2, Plt Count 423, MPV 8.1 10/21/17 04:15: Sodium 141, Potassium 3.9, Chloride 102, Carbon Dioxide 27.0, BUN 66 H, Creatinine 4.30 H, Estim Creat Clear Calc 14.53, Est GFR (MDRD) Af Amer 15 L, Est GFR (MDRD) Non-Af 12 L, BUN/Creatinine Ratio 15.3, Glucose 110 H, Calcium 8.5, Phosphorus 4.9, Albumin 2.1 L Current Medications Acetaminophen (Tylenol) 650 mg PO Q6H PRN PRN PRN Reason: Mild Pain (1-3)/Temp > 100.7 F Chlorhexidine Gluconate () 1 each TOPICAL DAILY [facility] Heparin Sodium (Porcine) (Heparin Na) 5,000 unit SC BID [facility] Last Admin: 10/20/17 21:24 Dose: 5,000 u Sodium Chloride () 1,000 mls @ 150 mls/hr IV .Q6H40M [facility] Last Admin: 10/21/17 04:01 Dose: 150 mls/hr Piperacillin Sod/Tazobactam Sod (Zosyn) 3.375 gm in 50 mls @ 12.5 mls/hr IV Q12 [facility] Last Admin: 10/20/17 21:23 Dose: 12.5 mls/hr Sodium Chloride () 250 mls @ 15 mls/hr IV .[id number] PRN PRN Reason: SALINE FLUSH Last Admin: 10/20/17 21:20 Dose: 15 mls/hr Magnesium Hydroxide (Milk Of Magnesia) 30 ml PO DAILY PRN PRN PRN Reason: Constipation Ondansetron HCl (Zofran) 4 mg IV Q8H PRN PRN PRN Reason: NAUSEA Oxycodone HCl (Oxyir) 5 mg PO Q6H PRN PRN PRN Reason: MOD-SEVERE PAIN (4-10/10) Psyllium Hydrophilic Mucilloid (Metamucil) 1 packet PO DAILY PRN PRN PRN Reason: CONSTIPATION Sodium Chloride () 5 - 30 ml IV UD PRN PRN Reason: SALINE FLUSH Last Admin: 10/21/17 04:10 Dose: 10 ml Medical Necessity - Tobacco Use Smoking Status: Former smoker Tobacco Use: Non-smoker Assessment/Plan All Active Problems JENNI (acute kidney injury) (Acute) Patient is a 37-year-old lady with history of metastatic cervical CA chemo who presented with intractable nausea vomiting associated with some confusion and assessment of acute metabolic encephalopathy secondary to acute kidney injury made admitted for subsequent management 1. Acute metabolic encephalopathy secondary to acute kidney injury as a result significant dehydration 2. Acute kidney injury prerenal secondary to dehydration. Patient started on aggressive IV fluid resuscitation kidney function improving consultation was also placed to nephrology awaiting input 2. History of obstructive uropathy status post right ureteral stent placement 4. Sepsis secondary to suspected complicated UTI in the setting of bilateral urethral stent patient was started on Zosyn culture sent with plans to adjust antibiotic therapy based on culture result 5. Healthcare associated pneumonia check history on admission demonstrated right lower lobe infiltrate on Zosyn as stated above 6. 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 Diop 7. Anemia secondary to anemia of malignancy monitoring H&H with plans to transfuse if patient becomes symptomatic 8. DVT prophylaxis SC heparin Clinical Impression(s) from Imaging Studies Chest X-Ray 10/20/17 12:28 IMPRESSION: Right lower lobe pneumonia. Electronically Signed: Franc Gregg at 13:04 EDT Tel , Service support , Abdomen/Pelvis CT 10/20/17 13:45 IMPRESSION: Right lung consolidation. Further evaluation with dedicated CT of the chest can be obtained. Bilateral renal stents in place. Electronically Signed: Jama Adams MD at 14:53 EDT Tel , Service support , Active Medications Acetaminophen (Tylenol) 650 mg PO Q6H PRN PRN PRN Reason: Mild Pain (1-3)/Temp > 100.7 F Chlorhexidine Gluconate () 1 each TOPICAL DAILY [facility] Heparin Sodium (Porcine) (Heparin Na) 5,000 unit SC BID [facility] Last Admin: 10/20/17 21:24 Dose: 5,000 u Sodium Chloride () 1,000 mls @ 150 mls/hr IV .Q6H40M [facility] Last Admin: 10/21/17 04:01 Dose: 150 mls/hr Piperacillin Sod/Tazobactam Sod (Zosyn) 3.375 gm in 50 mls @ 12.5 mls/hr IV Q12 [facility] Last Admin: 10/20/17 21:23 Dose: 12.5 mls/hr Sodium Chloride () 250 mls @ 15 mls/hr IV .[id number] PRN PRN Reason: SALINE FLUSH Last Admin: 10/20/17 21:20 Dose: 15 mls/hr Magnesium Hydroxide (Milk Of Magnesia) 30 ml PO DAILY PRN PRN PRN Reason: Constipation Ondansetron HCl (Zofran) 4 mg IV Q8H PRN PRN PRN Reason: NAUSEA Oxycodone HCl (Oxyir) 5 mg PO Q6H PRN PRN PRN Reason: MOD-SEVERE PAIN (4-10/10) Psyllium Hydrophilic Mucilloid (Metamucil) 1 packet PO DAILY PRN PRN PRN Reason: CONSTIPATION Sodium Chloride () 5 - 30 ml IV UD PRN PRN Reason: SALINE FLUSH Last Admin: 10/21/17 04:10 Dose: 10 ml Code Visit Inpatient E&M: 91719 Subs Hosp L3
--- NOTE | 2017-10-21 08:04 | PN_ITS ---
Patient Problems: Active and Suspected Problems JENNI (acute kidney injury) (Acute) Subjective: Patient is a 37-year-old lady with history of metastatic cervical CA chemo who presented with intractable nausea vomiting associated with some confusion and assessment of acute metabolic encephalopathy secondary to acute kidney injury made admitted for subsequent management Objective: GENERAL: Appears ill looking HEENT: Dry oral mucosa NECK; supple, normal thyroid, no distended JVD. CHEST: Clear to auscultation bilaterally, HEART: Regular S1 S2, tachycardiac ABDOMEN: soft, non-tender, normoactive bowel sounds, RECTAL: deferred EXTREMITIES: No edema, no clubbing, no cyanosis. CREATIVE SERVICES SPECIALIST: Awake; no lateralizing signs. SKIN: No Rash Vitals/I&O's: Vital Signs Temp Pulse Resp BP Pulse Ox 98.1 F 108 H 17 144/73 H 98 10/21/17 04:00 10/21/17 07:00 10/21/17 07:00 10/21/17 07:00 10/21/17 07:00 Oxygen Flow Rate (L/min) 2 Oxygen Delivery Method Room Air Weight: 82.2 kg Body Mass Index (BMI) 31.8 Intake and Output for Last 24 Hours 10/19/17 10/20/17 10/21/17 23:59 23:59 23:59 Intake Total 1724 / 1724 2258 / 2258 Output Total 775 / 775 800 / 800 Balance 949 / 949 1458 / 1458 Laboratory Results 10/20/17 14:50: MRSA (PCR) Negative 10/21/17 04:15: WBC 11.0, RBC 3.25 L, Hgb 8.2 L, Hct 25.8 L, MCV 79.4 L, MCH 25.2 L, MCHC 31.8 L, RDW 14.9 H, RDW Differential 41.2, Plt Count 423, MPV 8.1 10/21/17 04:15: Sodium 141, Potassium 3.9, Chloride 102, Carbon Dioxide 27.0, BUN 66 H, Creatinine 4.30 H, Estim Creat Clear Calc 14.53, Est GFR (MDRD) Af Amer 15 L, Est GFR (MDRD) Non-Af 12 L, BUN/Creatinine Ratio 15.3, Glucose 110 H , Calcium 8.5, Phosphorus 4.9, Albumin 2.1 L Current Medications Acetaminophen (Tylenol) 650 mg PO Q6H PRN PRN PRN Reason: Mild Pain (1-3)/Temp > 100.7 F Chlorhexidine Gluconate () 1 each TOPICAL DAILY [facility] Heparin Sodium (Porcine) (Heparin Na) 5,000 unit SC BID [facility] Last Admin: 10/20/17 21:24 Dose: 5,000 u Sodium Chloride () 1,000 mls @ 150 mls/hr IV .Q6H40M [facility] Last Admin: 10/21/17 04:01 Dose: 150 mls/hr Piperacillin Sod/Tazobactam Sod (Zosyn) 3.375 gm in 50 mls @ 12.5 mls/hr IV Q12 [facility] Last Admin: 10/20/17 21:23 Dose: 12.5 mls/hr Sodium Chloride () 250 mls @ 15 mls/hr IV .[id number] PRN PRN Reason: SALINE FLUSH Last Admin: 10/20/17 21:20 Dose: 15 mls/hr Magnesium Hydroxide (Milk Of Magnesia) 30 ml PO DAILY PRN PRN PRN Reason: Constipation Ondansetron HCl (Zofran) 4 mg IV Q8H PRN PRN PRN Reason: NAUSEA Oxycodone HCl (Oxyir) 5 mg PO Q6H PRN PRN PRN Reason: MOD-SEVERE PAIN (4-10/10) Psyllium Hydrophilic Mucilloid (Metamucil) 1 packet PO DAILY PRN PRN PRN Reason: CONSTIPATION Sodium Chloride () 5 - 30 ml IV UD PRN PRN Reason: SALINE FLUSH Last Admin: 10/21/17 04:10 Dose: 10 ml Medical Necessity - Tobacco Use Smoking Status: Former smoker Tobacco Use: Non-smoker Assessment/Plan All Active Problems JENNI (acute kidney injury) (Acute) Patient is a 37-year-old lady with history of metastatic cervical CA chemo who presented with intractable nausea vomiting associated with some confusion and assessment of acute metabolic encephalopathy secondary to acute kidney injury made admitted for subsequent management 1. Acute metabolic encephalopathy secondary to acute kidney injury as a result significant dehydration 2. Acute kidney injury prerenal secondary to dehydration. Patient started on aggressive IV fluid resuscitation kidney function improving consultation was also placed to nephrology awaiting input 2. History of obstructive uropathy status post right ureteral stent placement 4. Sepsis secondary to suspected complicated UTI in the setting of bilateral urethral stent patient was started on Zosyn culture sent with plans to adjust antibiotic therapy based on culture result 5. Healthcare associated pneumonia check history on admission demonstrated right lower lobe infiltrate on Zosyn as stated above 6. 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 Diop 7. Anemia secondary to anemia of malignancy monitoring H&H with plans to transfuse if patient becomes symptomatic 8. DVT prophylaxis SC heparin Clinical Impression(s) from Imaging Studies Chest X-Ray 10/20/17 12:28 IMPRESSION: Right lower lobe pneumonia. Electronically Signed: Franc Gregg at 13:04 EDT Tel , Service support , Abdomen/Pelvis CT 10/20/17 13:45 IMPRESSION: Right lung consolidation. Further evaluation with dedicated CT of the chest can be obtained. Bilateral renal stents in place. Electronically Signed: Jama Adams MD at 14:53 EDT Tel , Service support , Active Medications Acetaminophen (Tylenol) 650 mg PO Q6H PRN PRN PRN Reason: Mild Pain (1-3)/Temp > 100.7 F Chlorhexidine Gluconate () 1 each TOPICAL DAILY [facility] Heparin Sodium (Porcine) (Heparin Na) 5,000 unit SC BID [facility] Last Admin: 10/20/17 21:24 Dose: 5,000 u Sodium Chloride () 1,000 mls @ 150 mls/hr IV .Q6H40M [facility] Last Admin: 10/21/17 04:01 Dose: 150 mls/hr Piperacillin Sod/Tazobactam Sod (Zosyn) 3.375 gm in 50 mls @ 12.5 mls/hr IV Q12 [facility] Last Admin: 10/20/17 21:23 Dose: 12.5 mls/hr Sodium Chloride () 250 mls @ 15 mls/hr IV .[id number] PRN PRN Reason: SALINE FLUSH Last Admin: 10/20/17 21:20 Dose: 15 mls/hr Magnesium Hydroxide (Milk Of Magnesia) 30 ml PO DAILY PRN PRN PRN Reason: Constipation Ondansetron HCl (Zofran) 4 mg IV Q8H PRN PRN PRN Reason: NAUSEA Oxycodone HCl (Oxyir) 5 mg PO Q6H PRN PRN PRN Reason: MOD-SEVERE PAIN (4-10/10) Psyllium Hydrophilic Mucilloid (Metamucil) 1 packet PO DAILY PRN PRN PRN Reason: CONSTIPATION Sodium Chloride () 5 - 30 ml IV UD PRN PRN Reason: SALINE FLUSH Last Admin: 10/21/17 04:10 Dose: 10 ml Code Visit Inpatient E&M: 20063 Subs Hosp L3
[2017-10-21] MEDS: Piperacil/Tazobactam 3.375 GM/50 ML ML IV ×2 (09:07→21:19)
[2017-10-21] MEDS: Heparin Injection (Vial) 5,000 UNIT/ML VIAL 5000 UNIT SC ×2 (09:08→21:18)
--- NOTE | 2017-10-21 09:40 | CASEMGMT ---
See RN CM Assessment Link. DC PLAN: home No needs identified @ this time. CM will assist if DC needs arise. Samantha TALAVERA RN ACM
--- NOTE | 2017-10-21 09:54 | PN.RENAL_ITS ---
Patient Problems: Active and Suspected Problems JENNI (acute kidney injury) (Acute) Subjective: still with anorexia but no nausea, vomiting, shortness of breath or cough. Urine output increased with improved renal fxn. - Physical Exam General: Alert, Oriented x3, Cooperative, No apparent distress Neck: Supple Lungs: Clear to auscultation Cardiovascular: Regular rate, No rub noted Abdomen: Bowel Sounds Present, Soft, Non Tender, Non-Distended Extremities: No edema Musculoskeletal: No Muscle Wasting Neurological: - - no asterixis Psych/Mental Status: Normal Affect, Appropriate, Alert and oriented to time, place, person, mood and affect Vital Signs Temp Pulse Resp BP Pulse Ox 98.7 F 108 H 17 133/77 H 99 10/21/17 09:00 10/21/17 09:00 10/21/17 09:00 10/21/17 09:00 10/21/17 09:00 Oxygen Flow Rate (L/min) 2 Oxygen Delivery Method Room Air Weight: 82.2 kg Body Mass Index (BMI) 31.8 Intake and Output for Last 24 Hours 10/19/17 10/20/17 10/21/17 23:59 23:59 23:59 Intake Total 1724 / 1724 2258 / 2258 Output Total 775 / 775 800 / 800 Balance 949 / 949 1458 / 1458 Laboratory Tests Past 24 Hrs 10/20/17 10/21/17 10/21/17 14:50 04:15 04:15 WBC 11.0 RBC 3.25 L Hgb 8.2 L Hct 25.8 L MCV 79.4 L MCH 25.2 L MCHC 31.8 L RDW 14.9 H RDW Differential 41.2 Plt Count 423 MPV 8.1 Sodium 141 Potassium 3.9 Chloride 102 Carbon Dioxide 27.0 BUN 66 H Creatinine 4.30 H Estim Creat Clear Calc 14.53 Est GFR (MDRD) Af Amer 15 L Est GFR (MDRD) Non-Af 12 L BUN/Creatinine Ratio 15.3 Glucose 110 H Calcium 8.5 Phosphorus 4.9 Albumin 2.1 L MRSA (PCR) Negative Medical Necessity - Tobacco Use Smoking Status: Former smoker Tobacco Use: Non-smoker Assessment/Plan All Active Problems JENNI (acute kidney injury) (Acute) 1. Acute kidney injury from prerenal event from dehydration, hypotension. Baseline creatinine 1.13 on 09/08, 1.3 on 09/25 after initiating radiation therapy , now at 9.8 on admission with nausea, vomiting past 2 days, wt loss 30# over 2 months with anorexia since initiating radiation therapy. Creatinine improved to 4 today. No need for dialysis. continue with iv hydration until oral intake improved. Hold valsartan/hctz. 2. Hypotension, tachycardia with leukocytosis. Evaluate for sepsis, UTI. Cx pending 3 Stage 4 cervical cancer with mets to lung, bones, LN s/p palliative radiation therapy x4 Oncology consulted 4. RLL infiltrate. Hx lung mets 5. Hematuria likely due to stents 6. Hx HTN recently started on valsartan/hctz. Continue to hold.
--- NOTE | 2017-10-21 13:35 | CASEMGMT ---
Addendum entered by Claudia Askew 10/21/17 13:47: SW did ask pt about history of depression and anxiety, pt states she has had this a long time, is not in counseling and not interested in counseling referral at this time. DARWIN Brown, POWDER MILL OPERATOR Original Note: SW met w/pt in room in regard to diagnosis of cervical cancer. Pt very tearful during conversation--pt just spoke w/emblem fuser tender as well and tearful then also. Pt has started chemotherapy. Pt talked about her family, in particular her brothers, mother and father. Pt explained that she and her mom are the same, and her brothers and dad are the same. SW inquired what she meant, she explains that her brothers are republicans, her mom and her are democrats. There have been family difficulties because of this. Pt became extremely tearful, explained she made her brother Anthony who is older than her POA, and is concerned if he would make the right decisions for her. She states her family keeps putting things on Facebook telling her what to do in regard to her cancer. SW asked if she has spoken w/him about her wishes, she has not. SW encouraged pt to speak w/her brother about her wishes. SW acknowledged what a difficult conversation this can be to have with a sibling. SW asked if she thinks her brother would make decisions with her interests in mind if it came to be he needed to do so, she stated she does think he would. SW explained that he also may be concerned about being POA and does not know what to do. SW explained that if he would be willing, she may want to have him go with her to an appointment w/Dr. Diop, so he can get a better understanding of what is going on with her medically. SW also let pt know if she would like to have a conversation about her wishes w/her brother, with a SW present, we may be able to set up a meeting to do this after she leaves the hospital. SW gave pt this SW's card, and let her know to call and we can set up a meeting. Pt states understanding, and may call. SW also let pt know if her brother comes in to visit and she wants to have a conversation here about advance directives, the SW here can come in and help with that conversation. Pt calmer when SW left the room, and is aware can ask for SW while here or call SW after she leaves to discuss advance care planning. DARWIN Brown, POWDER MILL OPERATOR
--- NOTE | 2017-10-21 14:06 | CHAPLAIN ---
Type of Pastoral Visit _x__ Initial Visit ___ Follow-up Visit ___ On-call Visit ___ General Patient Visit ___ Spiritual Assessment ___ Family Conference ___ Bereavement ___ Rapid Response ___ Code Blue ___ Other (describe below) Pastoral Care Referral From _x__ Patient ___ Family ___ Nurse ___ Physician ___ Internal Investigator ___ Patient Access Representative ___ Other (describe below) Sacrament/Intervention _x__ Active listening ___ Anointing ___ Mu-Ism ___ Bereavement ___ Communion ___ Jenifer exploration ___ ___ Life review _x__ Prayer ___ Reconciliation ___ Sacrament of Sick _x__ Supportive presence ___ Wedding ___ Other (describe below) Pastoral Comments patient is tearful about her situation; pt talks about having nieces and nephews and that that will be only what I can enjoy; pt said she is conflicted about her situation and at same time learning that brother and his are having another baby; pt says that she is struggling with having any hope; pt welcomes prayer and presence for spiritual support
[2017-10-21] MEDS: Acetaminophen 325 MG Tablet 650 MG PO (17:16)
[2017-10-21] MEDS: oxyCODONE 5 MG Tablet PO ×2 (17:17→23:41)
--- NOTE | 2017-10-21 17:18 | ONC.CON.INP2 ---
- Problem List (1) Cervical cancer Status: Chronic Qualifiers: Malignant neoplasm of cervix location: unspecified location Qualified Code(s): C53.9 - Malignant neoplasm of cervix uteri, unspecified (2) JENNI (acute kidney injury) Status: Acute Subjective Date of Service:: 10/21/17 Chief Complaint: abdominal pain, vomiting, aches History of Present Illness: HISTORY OF PRESENT ILLNESS: The patient is a 37 yo female with PMH significant for high grade dysplasia of the cervix who had 3 ED visits to [facility] since June 2017 for lower abdominal pain. At third visit, had CT A/P with IV contrast and was found to have pelvic mass/cervix tumor with hydronephrosis. ? Was referred to Dr. Costa (gynecology [facility]) and had exam/biopsy. 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 ? Underwent left ureteral stent placement 09/06/2017. ? Unbearable pain 09/07 so went to ED at [facility]. ? CT 09/07/2017: Small right-sided pleural effusion. ?A right lower lobe nodule noted which appears somewhat low-attenuation concerning for neoplasm measuring approximately 2.2 cm. ?Please consider chest CT. ?Small nodule in the left lower lobe also seen measuring approximately 6 mm. ? No pericardial effusion. ? Mild hepatic steatosis. ? Gallbladder and adrenal glands appear unremarkable. ? The pancreas are within normal limits. ? The bowel gas pattern is nonobstructive. ? No definite evidence for acute appendicitis. ? A left-sided double-J ureteral stent device seen. ?No definite evidence for left-sided hydronephrosis. ? Mild right-sided hydronephrosis seen without definite evidence for obstructing ureteral stones. ?Somewhat delayed right-sided nephrogram ? Uterus appears prominent with thickened endometrium and prominent left adnexa measuring approximately 5 cm which can be assessed with sonography. ? There is heterogeneous density noted in the region of the cervix. ?Cervical mass is not excluded. ? Pelvic adenopathy also seen along the inguinal chain largest measuring approximately 1.3 cm. ? Osseous structures demonstrate no acute abnormalities. ? Degenerative changes in the lumbar spine as well as the thoracic spine. ? No retroperitoneal adenopathy noted. ? IMPRESSION: Status post left-sided double-J ureteral stent placement without definite evidence for hydronephrosis. ? Mild right-sided hydronephrosis without evidence for obstructing ureteral stones. ?Mass effect on the distal right ureter by pelvic mass is suspected ? Heterogeneous density mass originating from the cervix concerning for neoplasm. ? Low-attenuation cystic structure in the left adnexa which can be assessed with sonography ? Right lower lobe nodule. ?Small right-sided pleural effusion concerning for metastatic disease. ?Small left-sided lung nodule in the left lower lobe. ? Pelvic adenopathy ? No evidence for acute appendicitis. ? She was admitted and?underwent right sided ureteral stent placement?09/07/2017. ? PET scan showed metastatic disease in her lung as well as pelvic lymph nodes. She was seen by a gynecology oncologist, Dr. Sam Spicer. He recommended chemoradiation treatment. She~returned this week to start palliative radiation therapy for pelvic pain and symptom management. she started palliative radiation last week and received 2 fractions of radiation. Throughout the weekend she became increasingly lethargic and had taken little in by mouth. No nausea. Presented to the emergency department with a creatinine of 9. Electrolytes were not significantly abnormal. She was admitted to the ICU last night and hydrated aggressively through the night. This morning's creatinine is down 4. She offers no complaints this morning. She said her pain is under good control by taking one Percocet tablet approximately every 4 hours. She hasn't have any nausea. Past Medical History: Chronic Problems Cervical cancer (Chronic) HCAP (healthcare-associated pneumonia) (Chronic) Past Medical/Surgical History: Past Medical History - Most Recent Inpatient Visit Past Medical History Start: 10/20/17 14:49 Text: Status: Complete Freq: ONCE Protocol: Document 10/20/17 15:11 [facility] (Rec: 10/20/17 15:15 [facility] [id number]) BMI Required to complete PMH What is Patient's BMI 31.9 Past Medical History Unable History Recalled No Query Text:Pt Unable/Family Not Present Neurologic Medical History Hx Stroke/TIA No Hx Dementia/Alzheimer's No Hx Parkinson's Disease No Hx Seizures No Hx Multiple Sclerosis No Hx Migraines No Cardiac Medical History VTE Present on Admission No Hx of Deep Vein Thrombosis/VTE/PE No Hx Hypertension Yes Hx Chest Pain/Angina No Hx Heart Attack No Hx Cardiac Surgery/Stents/Etc. No Hx Heart Failure No Hx Pacemaker/AICD No Hx Irregular Heartbeat and/or Afib No Hx Anticoagulant Therapy No Query Text:(Coumadin, Aspirin, Plavix, Xarelto, etc.) Hx Pain in Legs when Walking/Leg Cramps No Respiratory Medical History Hx COPD No Hx Emphysema No Hx Smoking Yes Smoking Status Former smoker Tobacco Use Non-smoker Hx Tobacco Use in last 12 months Yes: quit 9 months ago Sent to [facility] Yes Hx Sleep Apnea No Do you snore loudly (louder than talking Yes or can be heard through closed doors)? Do you often feel tired/ fatigued/ Yes sleepy during daytime? Has anyone observed you stop breathing No during sleep? STOP Results Positive GI Medical History Hx Ulcer No Hx Hepatitis No Hx Cirrhosis No Hx GI Bleed No Hx Unplanned Weight Loss No Genitourinary Medical History Indwelling Catheter in Place on Arrival/ No Admission Hx Renal Disease No Hx Dialysis No Comments Gutierrez inserted in ED, admitted w/ acute kidney injury Musculoskeletal History Hx Arthritis No Hx Rheumatoid Arthritis No Endocrine Medical History Hx Diabetes No Hx Thyroid Disease No Hematologic Medical History Hx of Blood Transfusion No Hx of Transfusion in last 3 Months No Ever experience any problems with No transfusion(s)? Hx of Preganancy in last 3 Months No Nurse Filling Out Transfusion & HGILL Questions: Date: 10/20/17 Time: 15:14 Psycho/Social Medical History Hx Depression Yes Hx Anxiety Yes Hx Behavior Disorder No Hx Alcohol Use No Hx Substance Use No Other Medical History Hx Blood Disorders No Hx Anemia No Hx Cancer Yes: cervical CA Hx Drug Resistant Organism No Wound/Pressure Injury Present on Arrival No /Admission Query Text:If yes, chart assessment in Shift/Clinical Findings Central Line/PICC/VAD Present on Arrival No /Admission Antibiotics within last 7 days? No Methicillin Resistant Staphylococcus aureus Screening Active MRSA No Risk for Readmission Number of Risk Factors 3 At Risk for Readmission Patient is At Risk For Readmission Patient is eligible for Call Back Y Maternal Family History: No pertinent history Paternal Family History: No pertinent history - Social History Lives: With Family Smoking Status: Former smoker Tobacco Use: Non-smoker Alcohol: None Drugs: None Allergies/Adverse Reactions: Allergy/AdvReac Type Severity Reaction Status Date / Time No Known Allergies Allergy Verified 10/20/17 11:13 Vital Signs Height 1.6 m Weight: 82.2 kg Weight in Pounds 181.2 lbs Pulse Ox 96 Temperature 99.1 F Pulse Rate 94 Respiratory Rate 16 Blood Pressure [BP] 154/87 Blood Pressure 121/66 Blood Pressure Position [BP] Semi-Fowlers Blood Pressure Position Semi-Fowlers - Physical Exam General: Alert, Oriented x3 Oropharynx:: Clear Cardiac:: Regular rhythm Lungs: Clear to auscultation Abdomen:: - - Tender lower abdomen. Laboratory Data: Laboratory Tests 10/21/17 10/21/17 Range/Units 04:15 04:15 WBC 11.0 (4.4-11.0) K/mm3 RBC 3.25 L (4.2-5.4) M/mm3 Hgb 8.2 L (12.0-15.0) g/dl Hct 25.8 L (37-47) % MCV 79.4 L (81-99) fL MCH 25.2 L (27.0-32.0) pg MCHC 31.8 L (32-36) g/gl RDW 14.9 H (11.6-14.6) % RDW Differential 41.2 (35.1-43.9) fl Plt Count 423 (150-450) K/mm3 MPV 8.1 (6.2-12.0) fl Sodium 141 (136-145) mmol/L Potassium 3.9 (3.5-5.1) mmol/L Chloride 102 (98-107) mmol/L Carbon Dioxide 27.0 (21.0-32.0) mmol/L BUN 66 H (7-18) mg/dL Creatinine 4.30 H (0.55-1.02) mg/dL Estim Creat Clear Calc 14.53 ml/min Est GFR (MDRD) Af Amer 15 L (>60) mL/min Est GFR (MDRD) Non-Af 12 L (>60) mL/min BUN/Creatinine Ratio 15.3 (10-20) RATIO Glucose 110 H (74-106) mg/dL Calcium 8.5 (8.5-10.1) mg/dL Phosphorus 4.9 (2.5-4.9) mg/dL Albumin 2.1 L (3.2-5.0) g/dL Diagnostic Data: Diagnostic Data Chest X-Ray 10/20/17 12:28 IMPRESSION: Right lower lobe pneumonia. Electronically Signed: Franc Gregg, at 13:04 EDT Tel , Service support , Abdomen/Pelvis CT 10/20/17 13:45 IMPRESSION: Right lung consolidation. Further evaluation with dedicated CT of the chest can be obtained. Bilateral renal stents in place. Electronically Signed: Jama Adams MD at 14:53 EDT Tel , Service support , Renal Ultrasound 10/20/17 14:46 IMPRESSION: Slight ectasia of the calyces of each kidney without dilatation of the renal pelvis. Normal renal cortical thickness and echotexture. Electronically Signed: Franc Gregg, at 11:21 EDT Tel , Service support , Assessment and Plan JENNI. -Initial lab work and response to hydration overnight suggest prerenal cause for the bulk of her acute kidney injury. -She did have mild chronic kidney disease at the time of diagnosis were serum creatinine was 1.3 mg/dL. Plan: -Continue hydration. -Ultrasound of kidneys and ureters once her creatinine declines further. Metastatic squamous cell carcinoma cervix. -She is young and she has a good KPS otherwise. Plan: -We will continue palliative radiation with more frequent monitoring of labs. -In office hydration when indicated. -Plan for carbo/paclitaxel/bevacizumab after complete palliative radiation. Medications: Prescriptions This Visit Medication Instructions Recorded Morphine Sulfate [Morphine Sulfate 30 mg PO QHS 10/20/17 ER] Ondansetron [Zofran Odt] 4 mg PO Q6H PRN 10/20/17 Oxycodone HCl/Acetaminophen 1 tablet PO Q4H PRN PRN 10/20/17 [Percocet 5/325] Sennosides [Senna Laxative] 2 tab PO BID 10/20/17 Sertraline HCl [Zoloft] 50 mg PO DAILY 10/20/17 Valsartan/Hydrochlorothiazide 1 each PO DAILY 10/20/17 [Valsartan-Hctz 160-12.5 mg Tab] Medications Added to Medication List This Visit Category Date Time Status Ensure Clear Med 10/21/17 10:00 Active 120 ml PO 4X/DAY Primary Care Provider: Merly Rahman Referring Provider:
--- NOTE | 2017-10-21 17:23 | CON.PCM_ITS ---
- Problem List (1) Cervical cancer Status: Chronic Qualifiers: Malignant neoplasm of cervix location: unspecified location Qualified Code( s): C53.9 - Malignant neoplasm of cervix uteri, unspecified (2) JENNI (acute kidney injury) Status: Acute Subjective Date of Service:: 10/21/17 Chief Complaint: abdominal pain, vomiting, aches History of Present Illness: HISTORY OF PRESENT ILLNESS: The patient is a 37 yo female with PMH significant for high grade dysplasia of the cervix who had 3 ED visits to [facility] since June 2017 for lower abdominal pain. At third visit, had CT A/P with IV contrast and was found to have pelvic mass/cervix tumor with hydronephrosis. ? Was referred to Dr. Costa (gynecology [facility]) and had exam/biopsy. 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 ? Underwent left ureteral stent placement 09/06/2017. ? Unbearable pain 09/07 so went to ED at [facility]. ? CT 09/07/2017: Small right-sided pleural effusion. ?A right lower lobe nodule noted which appears somewhat low-attenuation concerning for neoplasm measuring approximately 2.2 cm. ?Please consider chest CT. ?Small nodule in the left lower lobe also seen measuring approximately 6 mm. ? No pericardial effusion. ? Mild hepatic steatosis. ? Gallbladder and adrenal glands appear unremarkable. ? The pancreas are within normal limits. ? The bowel gas pattern is nonobstructive. ? No definite evidence for acute appendicitis. ? A left-sided double-J ureteral stent device seen. ?No definite evidence for left-sided hydronephrosis. ? Mild right-sided hydronephrosis seen without definite evidence for obstructing ureteral stones. ?Somewhat delayed right-sided nephrogram ? Uterus appears prominent with thickened endometrium and prominent left adnexa measuring approximately 5 cm which can be assessed with sonography. ? There is heterogeneous density noted in the region of the cervix. ?Cervical mass is not excluded. ? Pelvic adenopathy also seen along the inguinal chain largest measuring approximately 1.3 cm. ? Osseous structures demonstrate no acute abnormalities. ? Degenerative changes in the lumbar spine as well as the thoracic spine. ? No retroperitoneal adenopathy noted. ? IMPRESSION: Status post left-sided double-J ureteral stent placement without definite evidence for hydronephrosis. ? Mild right-sided hydronephrosis without evidence for obstructing ureteral stones. ?Mass effect on the distal right ureter by pelvic mass is suspected ? Heterogeneous density mass originating from the cervix concerning for neoplasm. ? Low-attenuation cystic structure in the left adnexa which can be assessed with sonography ? Right lower lobe nodule. ?Small right-sided pleural effusion concerning for metastatic disease. ?Small left-sided lung nodule in the left lower lobe. ? Pelvic adenopathy ? No evidence for acute appendicitis. ? She was admitted and?underwent right sided ureteral stent placement?09/07/2017. ? PET scan showed metastatic disease in her lung as well as pelvic lymph nodes. She was seen by a gynecology oncologist, Dr. Sam Spicer. He recommended chemoradiation treatment. She~returned this week to start palliative radiation therapy for pelvic pain and symptom management. she started palliative radiation last week and received 2 fractions of radiation. Throughout the weekend she became increasingly lethargic and had taken little in by mouth. No nausea. Presented to the emergency department with a creatinine of 9. Electrolytes were not significantly abnormal. She was admitted to the ICU last night and hydrated aggressively through the night. This morning's creatinine is down 4. She offers no complaints this morning. She said her pain is under good control by taking one Percocet tablet approximately every 4 hours. She hasn't have any nausea. Past Medical History: Chronic Problems Cervical cancer (Chronic) HCAP (healthcare-associated pneumonia) (Chronic) Past Medical/Surgical History: Past Medical History - Most Recent Inpatient Visit Past Medical History Start: 10/20/17 14: 49 Text: Status: Complete Freq: ONCE Protocol: Document 10/20/17 15:11 [facility] (Rec: 10/20/17 15:15 [facility] [id number]) BMI Required to complete PMH What is Patient's BMI 31.9 Past Medical History Unable History Recalled No Query Text:Pt Unable/Family Not Present Neurologic Medical History Hx Stroke/TIA No Hx Dementia/Alzheimer's No Hx Parkinson's Disease No Hx Seizures No Hx Multiple Sclerosis No Hx Migraines No Cardiac Medical History VTE Present on Admission No Hx of Deep Vein Thrombosis/VTE/PE No Hx Hypertension Yes Hx Chest Pain/Angina No Hx Heart Attack No Hx Cardiac Surgery/Stents/Etc. No Hx Heart Failure No Hx Pacemaker/AICD No Hx Irregular Heartbeat and/or Afib No Hx Anticoagulant Therapy No Query Text:(Coumadin, Aspirin, Plavix, Xarelto, etc.) Hx Pain in Legs when Walking/Leg Cramps No Respiratory Medical History Hx COPD No Hx Emphysema No Hx Smoking Yes Smoking Status Former smoker Tobacco Use Non-smoker Hx Tobacco Use in last 12 months Yes: quit 9 months ago Sent to PSN Yes Hx Sleep Apnea No Do you snore loudly (louder than talking Yes or can be heard through closed doors)? Do you often feel tired/ fatigued/ Yes sleepy during daytime? Has anyone observed you stop breathing No during sleep? STOP Results Positive GI Medical History Hx Ulcer No Hx Hepatitis No Hx Cirrhosis No Hx GI Bleed No Hx Unplanned Weight Loss No Genitourinary Medical History Indwelling Catheter in Place on Arrival/ No Admission Hx Renal Disease No Hx Dialysis No Comments Gutierrez inserted in ED, admitted w/ acute kidney injury Musculoskeletal History Hx Arthritis No Hx Rheumatoid Arthritis No Endocrine Medical History Hx Diabetes No Hx Thyroid Disease No Hematologic Medical History Hx of Blood Transfusion No Hx of Transfusion in last 3 Months No Ever experience any problems with No transfusion(s)? Hx of Preganancy in last 3 Months No Nurse Filling Out Transfusion & HGILL Questions: Date: 10/20/17 Time: 15:14 Psycho/Social Medical History Hx Depression Yes Hx Anxiety Yes Hx Behavior Disorder No Hx Alcohol Use No Hx Substance Use No Other Medical History Hx Blood Disorders No Hx Anemia No Hx Cancer Yes: cervical CA Hx Drug Resistant Organism No Wound/Pressure Injury Present on Arrival No /Admission Query Text:If yes, chart assessment in Shift/Clinical Findings Central Line/PICC/VAD Present on Arrival No /Admission Antibiotics within last 7 days? No Methicillin Resistant Staphylococcus aureus Screening Active MRSA No Risk for Readmission Number of Risk Factors 3 At Risk for Readmission Patient is At Risk For Readmission Patient is eligible for Call Back Y Maternal Family History: No pertinent history Paternal Family History: No pertinent history - Social History Lives: With Family Smoking Status: Former smoker Tobacco Use: Non-smoker Alcohol: None Drugs: None Allergies/Adverse Reactions: Allergy/AdvReac Type Severity Reaction Status Date / Time No Known Allergies Allergy Verified 10/20/17 11:13 Vital Signs Height 1.6 m Weight: 82.2 kg Weight in Pounds 181.2 lbs Pulse Ox 96 Temperature 99.1 F Pulse Rate 94 Respiratory Rate 16 Blood Pressure [BP] 154/87 Blood Pressure 121/66 Blood Pressure Position [BP] Semi-Fowlers Blood Pressure Position Semi-Fowlers - Physical Exam General: Alert, Oriented x3 Oropharynx:: Clear Cardiac:: Regular rhythm Lungs: Clear to auscultation Abdomen:: - - Tender lower abdomen. Laboratory Data: Laboratory Tests 3 10/21/17 10/21/17 Range/Units 04:15 04:15 WBC 11.0 (4.4-11.0) K/mm3 RBC 3.25 L (4.2-5.4) M/mm3 Hgb 8.2 L (12.0-15.0) g/dl Hct 25.8 L (37-47) % MCV 79.4 L (81-99) fL MCH 25.2 L (27.0-32.0) pg MCHC 31.8 L (32-36) g/gl RDW 14.9 H (11.6-14.6) % RDW Differential 41.2 (35.1-43.9) fl Plt Count 423 (150-450) K/mm3 MPV 8.1 (6.2-12.0) fl Sodium 141 (136-145) mmol/L Potassium 3.9 (3.5-5.1) mmol/L Chloride 102 (98-107) mmol/L Carbon Dioxide 27.0 (21.0-32.0) mmol/L BUN 66 H (7-18) mg/dL Creatinine 4.30 H (0.55-1.02) mg/dL Estim Creat Clear Calc 14.53 ml/min Est GFR (MDRD) Af Amer 15 L (>60) mL/min Est GFR (MDRD) Non-Af 12 L (>60) mL/min BUN/Creatinine Ratio 15.3 (10-20) RATIO Glucose 110 H (74-106) mg/dL Calcium 8.5 (8.5-10.1) mg/dL Phosphorus 4.9 (2.5-4.9) mg/dL Albumin 2.1 L (3.2-5.0) g/dL Diagnostic Data: Diagnostic Data Chest X-Ray 10/20/17 12:28 IMPRESSION: Right lower lobe pneumonia. Electronically Signed: Franc Gregg, at 13:04 EDT Tel , Service support , Abdomen/Pelvis CT 10/20/17 13:45 IMPRESSION: Right lung consolidation. Further evaluation with dedicated CT of the chest can be obtained. Bilateral renal stents in place. Electronically Signed: Jama Adams MD at 14:53 EDT Tel , Service support , Renal Ultrasound 10/20/17 14:46 IMPRESSION: Slight ectasia of the calyces of each kidney without dilatation of the renal pelvis. Normal renal cortical thickness and echotexture. Electronically Signed: Franc Gregg, at 11:21 EDT Tel , Service support , Assessment and Plan JENNI. -Initial lab work and response to hydration overnight suggest prerenal cause for the bulk of her acute kidney injury. -She did have mild chronic kidney disease at the time of diagnosis were serum creatinine was 1.3 mg/dL. Plan: -Continue hydration. -Ultrasound of kidneys and ureters once her creatinine declines further. Metastatic squamous cell carcinoma cervix. -She is young and she has a good KPS otherwise. Plan: -We will continue palliative radiation with more frequent monitoring of labs. -In office hydration when indicated. -Plan for carbo/paclitaxel/bevacizumab after complete palliative radiation. Medications: Prescriptions This Visit Medication Instructions Recorded Morphine Sulfate [Morphine Sulfate 30 mg PO QHS 10/20/17 ER] Ondansetron [Zofran Odt] 4 mg PO Q6H PRN 10/20/17 Oxycodone HCl/Acetaminophen 1 tablet PO Q4H PRN PRN 10/20/17 [Percocet 5/325] Sennosides [Senna Laxative] 2 tab PO BID 10/20/17 Sertraline HCl [Zoloft] 50 mg PO DAILY 10/20/17 Valsartan/Hydrochlorothiazide 1 each PO DAILY 10/20/17 [Valsartan-Hctz 160-12.5 mg Tab] Medications Added to Medication List This Visit Category Date Time Status Ensure Clear Med 10/21/17 10:00 Active 120 ml PO 4X/DAY Primary Care Provider: Merly Rahman Referring Provider:
[2017-10-22] MEDS: Ondansetron 4 MG/2 ML Vial IV (00:01)
[2017-10-22] MEDS: Acetaminophen 325 MG Tablet 650 MG PO (02:28)
[2017-10-22 02:31] VITALS: BP 132/67; PULSE 91; RESP 18; TEMP 36.9; O2SAT 97
[2017-10-22 05:52] LABS: Hematocrit 24.3 % (37-47); Hemoglobin 7.6 g/dl (12.0-15.0); Mean Corp Hgb Conc 31.3 g/gl (32-36); Mean Corpuscular Hgb 25.2 pg (27.0-32.0); Mean Corpuscular Volume 80.5 fL (81-99); Mean Platelet Vol. 8.2 fl (6.2-12.0); Platelet Count 423 K/mm3 (150-450); RBC Distribution Width CV 14.9 % (11.6-14.6); RBC Distribution Width SD 42.3 fl (35.1-43.9); Red Blood Count 3.02 M/mm3 (4.2-5.4)
[2017-10-22] MEDS: 0.9% Normal Saline 1,000 ML 150 ML IV (05:53)
[2017-10-22 05:59] LABS: Scan Indicated on CBC? Y/N NO
[2017-10-22 06:25] LABS: Anion Gap 7 (5-15); BUN 35 mg/dL (7-18); BUN/Creat Ratio 28.2 RATIO (10-20); Calcium,Total 8.3 mg/dL (8.5-10.1); Chloride 108 mmol/L (98-107); Creatinine, Serum 1.24 mg/dL (0.55-1.02); EST Glomerular Filtration Rate 51 mL/min (>60); Est Glom Filt Rate - Afr Amer 62 mL/min (>60); Estimated Creatinine Clearance 50.39 ml/min; Glucose 106 mg/dL (74-106); Magnesium 2.2 mg/dL (1.6-2.6); Potassium 3.7 mmol/L (3.5-5.1); Sodium Level 141 mmol/L (136-145)
--- NOTE | 2017-10-22 07:28 | PCM.PROGNOTE ---
Patient Problems: Active and Suspected Problems JENNI (acute kidney injury) (Acute) Subjective: The patient was seen and examined at the bedside this morning. Events from the last 24 hours have been reviewed. The patient is currently afebrile, hemodynamically stable and maintaining appropriate oxygen saturations on room air. The patient is currently overall net +4.7 L. The patient has had a slow downward decline in her hemoglobin to 7.6 g/dL this morning. Creatinine is improved this morning to 1.24. Objective: The patient's most recent lab work, culture data and imaging studies have all been personally reviewed. Blood and urine cultures are pending. CT abdomen/pelvis revealed evidence of a right lower lobe consolidation and bilateral renal stents. - Physical Exam General: Alert, Cooperative, No apparent distress HEENT: Atraumatic, PERRLA, Normocephalic Oral: No Gingival or Mucosal Lesions/ Ulcerations Neck: Supple, No Nodes, Trachea Midline Lungs: No rhonchi, No wheeze, No rales, Diminished Cardiovascular: Regular rate, Regular Rhythm, Normal S1, Normal S2, No murmurs Abdomen: Bowel Sounds Present, Soft, Non Tender Extremities: No clubbing, No cyanosis, No edema Skin: No breakdown Musculoskeletal: No Muscle Wasting Neurological: Neuro grossly intact Psych/Mental Status: Normal Affect, Appropriate Vital Signs Temp Pulse Resp BP Pulse Ox 98.4 F 91 18 132/67 H 97 10/22/17 02:31 10/22/17 02:31 10/22/17 02:31 10/22/17 02:31 10/22/17 02:31 Oxygen Flow Rate (L/min) 2 Oxygen Delivery Method Room Air Weight: 188 lb 14.978 oz Body Mass Index (BMI) 31.8 Intake and Output for Last 24 Hours 10/20/17 10/21/17 10/22/17 23:59 23:59 23:59 Intake Total 1724 / 1724 5279 / 5279 1545 / 1545 Output Total 775 / 775 2575 / 2575 450 / 450 Balance 949 / 949 2704 / 2704 1095 / 1095 Laboratory Tests Past 24 Hrs 10/22/17 10/22/17 05:24 05:24 WBC 10.0 RBC 3.02 L Hgb 7.6 L Hct 24.3 L MCV 80.5 L MCH 25.2 L MCHC 31.3 L RDW 14.9 H RDW Differential 42.3 Plt Count 423 MPV 8.2 Sodium 141 Potassium 3.7 Chloride 108 H Carbon Dioxide 26.0 Anion Gap 7 BUN 35 H Creatinine 1.24 H Estim Creat Clear Calc 50.39 Est GFR (MDRD) Af Amer 62 Est GFR (MDRD) Non-Af 51 L BUN/Creatinine Ratio 28.2 H Glucose 106 Calcium 8.3 L Magnesium 2.2 Clinical Impression(s) from Imaging Studies Chest X-Ray 10/20/17 12:28 IMPRESSION: Right lower lobe pneumonia. Electronically Signed: Franc Gregg, at 13:04 EDT Tel , Service support , Abdomen/Pelvis CT 10/20/17 13:45 IMPRESSION: Right lung consolidation. Further evaluation with dedicated CT of the chest can be obtained. Bilateral renal stents in place. Electronically Signed: Jama Adams MD at 14:53 EDT Tel , Service support , Renal Ultrasound 10/20/17 14:46 IMPRESSION: Slight ectasia of the calyces of each kidney without dilatation of the renal pelvis. Normal renal cortical thickness and echotexture. Electronically Signed: Franc Gregg, at 11:21 EDT Tel , Service support , Medical Necessity - Tobacco Use Smoking Status: Former smoker Tobacco Use: Non-smoker Assessment/Plan All Active Problems JENNI (acute kidney injury) (Acute) RECOMMENDATIONS: 1. Continue supplemental IV fluid hydration per nephrology recommendations. 2. Continue antibiotics, pending infectious workup 3. Continue oxycodone for pain 4. Continue appropriate DVT prophylaxis IMPRESSIONS: 1. Sepsis secondary to complicated cystitis/HCAP The patient will be continued on supplemental IV fluid hydration. In addition, broad-spectrum antibiotics will be continued, pending infectious workup. If the patient does develop a productive cough, please send sputum for culture. The patient remains hemodynamically stable. 2. Acute kidney injury Improving. Likely prerenal in etiology. Creatinine is improving with volume expansion. Urine output is appropriate. Nephrology is following. No indication for renal replacement therapy at this time. Continue to hold home antihypertensive regimen. 3. Metabolic encephalopathy Likely secondary to the above. In addition, the patient was on long-acting morphine in the setting of acute renal insufficiency, which may also have contributed to her lethargy noted on presentation. She is improving clinically, nonetheless. 4. Metastatic cervical cancer, receiving palliative radiation/microcytic anemia Complicates care, management, recovery and prognosis. Awaiting oncology consultation. Continue to monitor blood counts accordingly. No indication for transfusion at this time. Recommend continuing oxycodone for pain, in lieu of extended release morphine, given renal insufficiency. This note was generated with [email or web address] dictation software. It may contain incorrect words, spelling, and punctuation that were not noted in checking the note before signing. Code Visit Inpatient E&M: 02635 Subs Hosp L2
--- NOTE | 2017-10-22 07:35 | PN_ITS ---
Patient Problems: Active and Suspected Problems JENNI (acute kidney injury) (Acute) Subjective: The patient was seen and examined at the bedside this morning. Events from the last 24 hours have been reviewed. The patient is currently afebrile, hemodynamically stable and maintaining appropriate oxygen saturations on room air. The patient is currently overall net +4.7 L. The patient has had a slow downward decline in her hemoglobin to 7.6 g/dL this morning. Creatinine is improved this morning to 1.24. Objective: The patient's most recent lab work, culture data and imaging studies have all been personally reviewed. Blood and urine cultures are pending. CT abdomen/ pelvis revealed evidence of a right lower lobe consolidation and bilateral renal stents. - Physical Exam General: Alert, Cooperative, No apparent distress HEENT: Atraumatic, PERRLA, Normocephalic Oral: No Gingival or Mucosal Lesions/ Ulcerations Neck: Supple, No Nodes, Trachea Midline Lungs: No rhonchi, No wheeze, No rales, Diminished Cardiovascular: Regular rate, Regular Rhythm, Normal S1, Normal S2, No murmurs Abdomen: Bowel Sounds Present, Soft, Non Tender Extremities: No clubbing, No cyanosis, No edema Skin: No breakdown Musculoskeletal: No Muscle Wasting Neurological: Neuro grossly intact Psych/Mental Status: Normal Affect, Appropriate Vital Signs Temp Pulse Resp BP Pulse Ox 98.4 F 91 18 132/67 H 97 10/22/17 02:31 10/22/17 02:31 10/22/17 02:31 10/22/17 02:31 10/22/17 02:31 Oxygen Flow Rate (L/min) 2 Oxygen Delivery Method Room Air Weight: 188 lb 14.978 oz Body Mass Index (BMI) 31.8 Intake and Output for Last 24 Hours 10/20/17 10/21/17 10/22/17 23:59 23:59 23:59 Intake Total 1724 / 1724 5279 / 5279 1545 / 1545 Output Total 775 / 775 2575 / 2575 450 / 450 Balance 949 / 949 2704 / 2704 1095 / 1095 Laboratory Tests Past 24 Hrs 10/22/17 10/22/17 05:24 05:24 WBC 10.0 RBC 3.02 L Hgb 7.6 L Hct 24.3 L MCV 80.5 L MCH 25.2 L MCHC 31.3 L RDW 14.9 H RDW Differential 42.3 Plt Count 423 MPV 8.2 Sodium 141 Potassium 3.7 Chloride 108 H Carbon Dioxide 26.0 Anion Gap 7 BUN 35 H Creatinine 1.24 H Estim Creat Clear Calc 50.39 Est GFR (MDRD) Af Amer 62 Est GFR (MDRD) Non-Af 51 L BUN/Creatinine Ratio 28.2 H Glucose 106 Calcium 8.3 L Magnesium 2.2 Clinical Impression(s) from Imaging Studies Chest X-Ray 10/20/17 12:28 IMPRESSION: Right lower lobe pneumonia. Electronically Signed: Franc Gregg, at 13:04 EDT Tel , Service support , Abdomen/Pelvis CT 10/20/17 13:45 IMPRESSION: Right lung consolidation. Further evaluation with dedicated CT of the chest can be obtained. Bilateral renal stents in place. Electronically Signed: Jama Adams MD at 14:53 EDT Tel , Service support , Renal Ultrasound 10/20/17 14:46 IMPRESSION: Slight ectasia of the calyces of each kidney without dilatation of the renal pelvis. Normal renal cortical thickness and echotexture. Electronically Signed: Franc Gregg, at 11:21 EDT Tel , Service support , Medical Necessity - Tobacco Use Smoking Status: Former smoker Tobacco Use: Non-smoker Assessment/Plan All Active Problems JENNI (acute kidney injury) (Acute) RECOMMENDATIONS: 1. Continue supplemental IV fluid hydration per nephrology recommendations. 2. Continue antibiotics, pending infectious workup 3. Continue oxycodone for pain 4. Continue appropriate DVT prophylaxis IMPRESSIONS: 1. Sepsis secondary to complicated cystitis/HCAP The patient will be continued on supplemental IV fluid hydration. In addition, broad-spectrum antibiotics will be continued, pending infectious workup. If the patient does develop a productive cough, please send sputum for culture. The patient remains hemodynamically stable. 2. Acute kidney injury Improving. Likely prerenal in etiology. Creatinine is improving with volume expansion. Urine output is appropriate. Nephrology is following. No indication for renal replacement therapy at this time. Continue to hold home antihypertensive regimen. 3. Metabolic encephalopathy Likely secondary to the above. In addition, the patient was on long-acting morphine in the setting of acute renal insufficiency, which may also have contributed to her lethargy noted on presentation. She is improving clinically , nonetheless. 4. Metastatic cervical cancer, receiving palliative radiation/microcytic anemia Complicates care, management, recovery and prognosis. Awaiting oncology consultation. Continue to monitor blood counts accordingly. No indication for transfusion at this time. Recommend continuing oxycodone for pain, in lieu of extended release morphine, given renal insufficiency. This note was generated with [employer] dictation software. It may contain incorrect words, spelling, and punctuation that were not noted in checking the note before signing. Code Visit Inpatient E&M: 28575 Subs Hosp L2
--- NOTE | 2017-10-22 07:47 | DCINST_ITS ---
- Discharge Diagnoses Current Active Problems: Current Active and Chronic Problems JENNI (acute kidney injury) (Acute) Cervical cancer (Chronic) HCAP (healthcare-associated pneumonia) (Chronic) You will use the following diet at home:: No restrictions Allergies/Adverse Reactions: Allergies No Known Allergies Allergy (Verified 10/20/17 11:13) Medications to take at Discharge Morphine Sulfate [Morphine Sulfate ER] 30 mg PO QHS 10/20/17 Ondansetron [Zofran Odt] 4 mg PO Q6H PRN 10/20/17 Oxycodone HCl/Acetaminophen [Percocet 5-325] 1 tablet PO Q4H PRN PRN 10/20/17 Sennosides [Senna Laxative] 2 tab PO BID 10/20/17 Sertraline HCl [Zoloft] 50 mg PO DAILY 10/20/17 Amox/Clavulanate Tablet [Augmentin Tablet] 875 mg PO Q12H #14 tab 10/22/17 The following prescriptions were given: Amox/Clavulanate Tablet [Augmentin Tablet] 875 mg PO Q12H #14 tab Primary Care Physician: Merly Rahman DO [Primary Care Provider] - Please follow up with your Primary Care Physician in: for repeat BMP ON 10/24/17 Test Results: Test results from this visit will be discussed in further detail at your follow- up appointment, if applicable. Proposed Discharge Date: 10/22/17
--- NOTE | 2017-10-22 07:48 | PCM.DC.SUM ---
Discharge Date and Diagnosis - Problem List Patient Problems: Active and Suspected Problems JENNI (acute kidney injury) (Acute) Date of Admission: 10/20/17 Date of Discharge: 10/22/17 - Primary Discharge Diagnosis Active and Suspected Problems JENNI (acute kidney injury) (Acute) - Secondary Discharge Diagnosis Chronic Problems Cervical cancer (Chronic) HCAP (healthcare-associated pneumonia) (Chronic) Hospital Course and Treatment Imaging Results: Clinical Impression(s) from Imaging Studies Chest X-Ray 10/20/17 12:28 IMPRESSION: Right lower lobe pneumonia. Electronically Signed: Franc Gregg, at 13:04 EDT Tel , Service support , Abdomen/Pelvis CT 10/20/17 13:45 IMPRESSION: Right lung consolidation. Further evaluation with dedicated CT of the chest can be obtained. Bilateral renal stents in place. Electronically Signed: Jama Adams MD at 14:53 EDT Tel , Service support , Renal Ultrasound 10/20/17 14:46 IMPRESSION: Slight ectasia of the calyces of each kidney without dilatation of the renal pelvis. Normal renal cortical thickness and echotexture. Electronically Signed: Franc Gregg, at 11:21 EDT Tel , Service support , Summary of Care Provided: Patient is a 37-year-old lady with history of metastatic cervical CA chemo who presented with intractable nausea vomiting associated with some confusion and assessment of acute metabolic encephalopathy secondary to acute kidney injury made admitted for subsequent management 1. Acute metabolic encephalopathy secondary to acute kidney injury as a result significant dehydration 2. Acute kidney injury prerenal secondary to dehydration. Patient started on aggressive IV fluid resuscitation kidney function improving consultation was also placed to nephrology awaiting input. Patient was seen in consultation by Dr. Bradley with nephrology. Patient kidney function did improve after 3 days of sterilization she requested to be discharged home she was instructed to follow-up with PCP for repeat BMP on 10/24/2017 2. History of obstructive uropathy status post right ureteral stent placement 4. Sepsis secondary to suspected complicated UTI in the setting of bilateral urethral stent patient was started on Zosyn culture sent with plans to adjust antibiotic therapy based on culture result, cultures have remained negative to date at the time of discharge. Patient was discharged home on Augmentin 5. Healthcare associated pneumonia check history on admission demonstrated right lower lobe infiltrate on Zosyn as stated above 6. 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 Diop 7. Anemia secondary to anemia of malignancy monitoring H&H with plans to transfuse if patient becomes symptomatic; patient did not qualify for blood transfusion during her hospital stay 8. DVT prophylaxis SC heparin Home Medications: Medications to take at Discharge Morphine Sulfate [Morphine Sulfate ER] 30 mg PO QHS 10/20/17 Ondansetron [Zofran Odt] 4 mg PO Q6H PRN 10/20/17 Oxycodone HCl/Acetaminophen [Percocet 5-325] 1 tablet PO Q4H PRN PRN 10/20/17 Sennosides [Senna Laxative] 2 tab PO BID 10/20/17 Sertraline HCl [Zoloft] 50 mg PO DAILY 10/20/17 Amox/Clavulanate Tablet [Augmentin Tablet] 875 mg PO Q12H #14 tab 10/22/17 Following Prescrptions Were Given to Patient: Amox/Clavulanate Tablet [Augmentin Tablet] 875 mg PO Q12H #14 tab Primary Care Physician: Merly Rahman DO [Primary Care Provider] - Please follow up with your Primary Care Physician in: for repeat BMP ON 10/24/17 Please Follow Up With: Reji Diop DO Disposition: Home Minutes spent on discharge:: 35 Patient Condition:: Stable Medical Necessity - Tobacco Use Smoking Status: Former smoker Tobacco Use: Non-smoker Meaningful Use Info Meaningful Use Diagnoses (Choose all that apply): None applicable Code Visit Inpatient E&M: 87670 Disch Hosp
--- NOTE | 2017-10-22 07:51 | DS.PCM_ITS ---
Discharge Date and Diagnosis - Problem List Patient Problems: Active and Suspected Problems JENNI (acute kidney injury) (Acute) Date of Admission: 10/20/17 Date of Discharge: 10/22/17 - Primary Discharge Diagnosis Active and Suspected Problems JENNI (acute kidney injury) (Acute) - Secondary Discharge Diagnosis Chronic Problems Cervical cancer (Chronic) HCAP (healthcare-associated pneumonia) (Chronic) Hospital Course and Treatment Imaging Results: Clinical Impression(s) from Imaging Studies Chest X-Ray 10/20/17 12:28 IMPRESSION: Right lower lobe pneumonia. Electronically Signed: Franc Gregg, at 13:04 EDT Tel , Service support , Abdomen/Pelvis CT 10/20/17 13:45 IMPRESSION: Right lung consolidation. Further evaluation with dedicated CT of the chest can be obtained. Bilateral renal stents in place. Electronically Signed: Jama Adams MD at 14:53 EDT Tel , Service support , Renal Ultrasound 10/20/17 14:46 IMPRESSION: Slight ectasia of the calyces of each kidney without dilatation of the renal pelvis. Normal renal cortical thickness and echotexture. Electronically Signed: Franc Gregg, at 11:21 EDT Tel , Service support , Summary of Care Provided: Patient is a 37-year-old lady with history of metastatic cervical CA chemo who presented with intractable nausea vomiting associated with some confusion and assessment of acute metabolic encephalopathy secondary to acute kidney injury made admitted for subsequent management 1. Acute metabolic encephalopathy secondary to acute kidney injury as a result significant dehydration 2. Acute kidney injury prerenal secondary to dehydration. Patient started on aggressive IV fluid resuscitation kidney function improving consultation was also placed to nephrology awaiting input. Patient was seen in consultation by Dr. Bradley with nephrology. Patient kidney function did improve after 3 days of sterilization she requested to be discharged home she was instructed to follow- up with PCP for repeat BMP on 10/24/2017 2. History of obstructive uropathy status post right ureteral stent placement 4. Sepsis secondary to suspected complicated UTI in the setting of bilateral urethral stent patient was started on Zosyn culture sent with plans to adjust antibiotic therapy based on culture result, cultures have remained negative to date at the time of discharge. Patient was discharged home on Augmentin 5. Healthcare associated pneumonia check history on admission demonstrated right lower lobe infiltrate on Zosyn as stated above 6. 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 Diop 7. Anemia secondary to anemia of malignancy monitoring H&H with plans to transfuse if patient becomes symptomatic; patient did not qualify for blood transfusion during her hospital stay 8. DVT prophylaxis SC heparin Home Medications: Medications to take at Discharge Morphine Sulfate [Morphine Sulfate ER] 30 mg PO QHS 10/20/17 Ondansetron [Zofran Odt] 4 mg PO Q6H PRN 10/20/17 Oxycodone HCl/Acetaminophen [Percocet 5-325] 1 tablet PO Q4H PRN PRN 10/20/17 Sennosides [Senna Laxative] 2 tab PO BID 10/20/17 Sertraline HCl [Zoloft] 50 mg PO DAILY 10/20/17 Amox/Clavulanate Tablet [Augmentin Tablet] 875 mg PO Q12H #14 tab 10/22/17 Following Prescrptions Were Given to Patient: Amox/Clavulanate Tablet [Augmentin Tablet] 875 mg PO Q12H #14 tab Primary Care Physician: Merly Rahman DO [Primary Care Provider] - Please follow up with your Primary Care Physician in: for repeat BMP ON 10/24/17 Please Follow Up With: Reji Diop DO Disposition: Home Minutes spent on discharge:: 35 Patient Condition:: Stable Medical Necessity - Tobacco Use Smoking Status: Former smoker Tobacco Use: Non-smoker Meaningful Use Info Meaningful Use Diagnoses (Choose all that apply): None applicable Code Visit Inpatient E&M: 23882 Disch Hosp
[2017-10-22] MEDS: Piperacil/Tazobactam 3.375 GM/50 ML ML IV (09:31)
[2017-10-22] MEDS: oxyCODONE 5 MG Tablet PO (09:35)
[2017-10-22] MEDS: Heparin Injection (Vial) 5,000 UNIT/ML VIAL 5000 UNIT SC (09:40)
[2017-10-22 11:51] VITALS: BP 150/89; PULSE 80; RESP 16; TEMP 37.3; O2SAT 97
== END 2017-10-22 12:07 | disposition home or self-care (01) | DRG 871 ==
LOC: ED 12:35 → ICU 14:27 → MS3 10-21 10:06
PROVIDERS: Admitting Provider Internal Medicine; Emergency Provider Emergency Medicine; Family Provider Internal Medicine; PCP Internal Medicine; Visit Provider Internal Medicine
DX: A41.9 Sepsis, unspecified organism (principal); G93.41 Metabolic encephalopathy; J18.9 Pneumonia, unspecified organism; N17.9 Acute kidney failure, unspecified; E87.1 Hypo-osmolality and hyponatremia; C79.51 Secondary malignant neoplasm of bone; N39.0 Urinary tract infection, site not specified; C78.00 Secondary malignant neoplasm of unspecified lung; C53.9 Malignant neoplasm of cervix uteri, unspecified; Z79.899 Other long term (current) drug therapy; Z87.891 Personal history of nicotine dependence; D63.0 Anemia in neoplastic disease; E86.0 Dehydration; Y95 Nosocomial condition; I10 Essential (primary) hypertension; Z92.3 Personal history of irradiation
CPT/HCPCS: 36415; 51702; 71045; 74176; 76770; 80048; 80053; 80069; 81001; 82436; 82550; 82570; 82728; 82962; 83540; 83550; 83605; 83735; 84300; 85025; 85027; 87040; 87086; 87641; 97162; 97166; 97802; 99285; J1756; J7030; J7050; A4216; J2405

== ENCOUNTER 2017-11-25 10:55 | Inpatient (IN) | payer OTHER, SELFPAY ==
[2017-11-25] VITALS (14 sets, daily range): BP systolic 130–150; BP diastolic 69–101; PULSE 110–147; RESP 16–33; TEMP 36.6–36.7; O2SAT 88–97; BMI 28.7; BMI 28.9
--- NOTE | 2017-11-25 11:10 | ED.VISSUMM ---
- ER Visit Summary Date of Service: 11/25/17 Chief Complaint: Weakness, decreased p.o. intake History of Present Illness: The patient is a 37 F who comes in with a general diffuse weakness. Been ongoing for 2 days. She has not ate or drank very much for the past couple of days. Is not because she has had nausea or vomiting or diarrhea. She does states she is not interested in eating. She was just hospitalized about a month ago for acute kidney injury with creatinine over 9 that was due to dehydration. They were able to stabilize her creatinine with IV fluid hydration. She does have a history of cervical cancer. Her last radiation dose was on November 07. She has not started chemotherapy yet. Her neurologist is Dr. Diop Physical Examination: Vital signs reviewed. HEENT exam unremarkable. Heart is tachycardic and regular rhythm without murmurs. Lungs are clear to auscultation. Abdomen is soft and nontender. Extremities reveal no edema. Skin exam normal. Neurologic exam normal. Test Results: [Laboratory studies reveal leukocytosis of 20,400. Hemoglobin 8.5 which is baseline. He sodium 131, chloride 91. Glucose 143. Alkaline phosphatase 212. Lactate 2.4. CAT scan of the chest abdomen and pelvis reveals a large right-sided pleural effusion with lung collapse. There are some signs of metastatic disease Emergency Department Course and Treatment: Patient was given normal saline which did bring down her heart rate. Her pulse ox went to 88% so she was placed on nasal cannula oxygen. I started the patient on vancomycin and Zosyn due to this large effusion. She may need to have a thoracentesis to remove the fluid. I discussed this with the hospitalist and she will admit the patient. Treatment Plan: [] Disposition: Admit Impression: Large right-sided pleural effusion with lung collapse, severe sepsis This note was generated with [employer] dictation software. It may contain incorrect words, spelling, and punctuation that were not noted in review of the chart prior to signing ED Disposition - Plan for ED Patient: Chief Complaint: Weakness Referrals: Merly Rahman DO [Primary Care Provider] -
[2017-11-25] MEDS: 0.9% Normal Saline 1,000 ML 999 ML IV ×2 (11:37→11:50)
[2017-11-25 12:07] LABS: Hematocrit 28.2 % (37-47); Hemoglobin 8.5 g/dl (12.0-15.0); Mean Corp Hgb Conc 30.1 g/gl (32-36); Mean Corpuscular Hgb 24.4 pg (27.0-32.0); Mean Corpuscular Volume 80.8 fL (81-99); Mean Platelet Vol. 9.1 fl (6.2-12.0); Platelet Count 133 K/mm3 (150-450); RBC Distribution Width CV 20.2 % (11.6-14.6); RBC Distribution Width SD 54.3 fl (35.1-43.9); Red Blood Count 3.49 M/mm3 (4.2-5.4); White Blood Count 20.4 K/mm3 (4.4-11.0)
[2017-11-25 12:12] LABS: Albumin, Serum 2.2 g/dL (3.2-5.0); BUN 36 mg/dL (7-18); BUN/Creat Ratio 41.9 RATIO (10-20); Creatinine, Serum 0.86 mg/dL (0.55-1.02); EST Glomerular Filtration Rate 78 mL/min (>60); Est Glom Filt Rate - Afr Amer 94 mL/min (>60); Estimated Creatinine Clearance 72.65 ml/min; Globulin 5.4 g/dL (2.2-4.2); Glucose 143 mg/dL (74-106); Protein, Total 7.6 g/dL (6.4-8.2)
[2017-11-25 12:13] LABS: ALB/GLOB Ratio 0.4 RATIO (0.9-2.4); AST(SGOT) 24 U/L (15-37); Alanine Aminotransfer ALT/SGPT 14 U/L (13-56); Alkaline Phosphatase 212 U/L (45-117); Anion Gap 11 (5-15); Calcium,Total 10.5 mg/dL (8.5-10.1); Chloride 91 mmol/L (98-107); Potassium 3.7 mmol/L (3.5-5.1); Sodium Level 131 mmol/L (136-145)
[2017-11-25 12:21] LABS: Differential Indicated MANUAL DIFF; POSITIVE COUNT YES; POSITIVE DIFFERENTIAL NO; POSITIVE MORPHOLOGY YES
--- NOTE | 2017-11-25 12:24 | ED.RN ---
PT ASSKED IF SHE COULD TAKE 1 PERCOCET FROM HOME. MERI GLSAGOW ASKED DR RIVERS IF PT COULD HAVE 1 TABLET OF HOME PERCOCET AND DR RIVERS STATED PT COULD. PT THEN TOOK 1 TABLET PO PERCOCET FROM HOME. PT CURRENTLY C/O RUQ ABDOMINAL PAIN.
[2017-11-25 12:47] LABS: Anisocytosis 1+; Lactic Acid 2.4 mmol/L (0.4-2.0); Lymphocyte 4 % (19-41); Metamyelocyte 1 % (0-1); Monocyte 3 % (0-10); Myelocyte 2 (0-0); Neutrophil-Segmented 90 % (47-70); Platelet Estimate SLT DEC (ADEQ); Red Cell Morphology N CHROM NORMAL (NORM C&C); Total Cells Counted 100 (MANUAL DIFF)
[2017-11-25 12:48] LABS: Absolute Lymphocyte Count 0.82 X10^3/ul (0.83-4.51); Absolute Neutrophil Count 18.4 X10^3/uL (2.0-7.7)
--- NOTE | 2017-11-25 13:07 | NURSING ---
PER LAB LACTIC ACID 2.4. DR RIVERS AND MERI FYAE MADE AWARE.
--- NOTE | 2017-11-25 14:17 | NURSING ---
PCU RT PLEURAL EFFUSION PAINTSIL
--- NOTE | 2017-11-25 14:20 | PCM.HP.STD ---
History of Present Illness Date of Admission: 11/25/17 Chief Complaint: Generalized weakness, shortness of breath -2 days The patient is a 37 year old F with past medical history of metastatic cervical cancer, moderately invasive squamous cell carcinoma, status post chemotherapy and radiation therapy,bilateral hydronephrosis, status post ureteral stents, recently discharged on 10/22/2017 with acute kidney injury. History was from patient and her mother who is her healthcare power of compliance attorney. Patient lives with both parents, and since discharge has been having radiation therapy. She was due to have blood work and repeat CAT scan to be done today. According to the mother, she is been feeling very weak, fatigued, and just been sleeping in her recliner. Denies any fever or chills or chest pain. She had right-sided upper abdominal and flank pain. She sleeps in a recliner because she has orthopnea. She admits to shortness of breath on exertion and at rest as well as coughing with no sputum production. She came to the ED upon the insistence of the appearance. Blood pressure was 134/69 heart rate was 147, RR 21, Temperature 98.0 F. Her admitting WBC count was 20.4, hemoglobin was 8.5, platelet was 133, with neutrophilia on differential. Sodium was 131, potassium 3.7, chloride 91, bicarb 29, BUN 36, creatinine 0.86. CT scan of the abdomen and pelvis as well as chest showed a moderate size right pleural effusion with collapse of the right lung, small left pleural effusion, nodule in the lingula segment of the left lobe. Past Medical History Past Medical History (Chronic Problems): Chronic Problems (This Medical Record has been edited. Action required.) Pelvic mass (Chronic) Cervical cancer (Chronic) HCAP (healthcare-associated pneumonia) (Chronic) Allergies No Known Allergies Allergy (Verified 11/25/17 10:56) Home Medications: Ambulatory Orders Medication Instructions Recorded Morphine Sulfate [Morphine Sulfate 30 mg PO QHS 10/20/17 ER] Ondansetron [Zofran Odt] 4 mg PO Q6H PRN 10/20/17 Oxycodone HCl/Acetaminophen 1 tablet PO Q4H PRN PRN 10/20/17 [Percocet 5-325] Sennosides [Senna Laxative] 2 tab PO BID 10/20/17 Sertraline HCl [Zoloft] 50 mg PO DAILY 10/20/17 Surgical History: - - LEEP Psychiatric History: Anxiety, Depression [employer]TI[employer] J[employer]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 Denies: Anorexia, Chills, Fever, Night Sweats, Weight Change Eyes: Denies: Blurred vision, Cataracts, Conjunctivae Inflammation, Double vision, Pain, Redness HEENT: Denies: Difficulty Hearing, Difficulty Swallowing, Head Aches, Hearing Changes, Sinus Congestion, Sinus Drainage, Sore Throat Cardiovascular: Reports: Light Headedness, Orthopnea, Paroxysmal Noc. Dyspnea. Denies: Chest Pain, Edema, Heaviness, Palpitations Respiratory: Reports: Cough, Shortness of Breath, Shortness of breath at rest, Shortness of breath upon exertion. Denies: Hemoptysis, Pleuritic Pain, Sputum production Gastrointestinal: Denies: Abdominal Pain, Constipation, Hematemesis, Hematochezia, Nausea, Vomiting Genitourinary: Denies: Dysuria, Frequency, Incontinence, Nocturia Musculoskeletal: Denies: Arm Pain, Back Pain, Foot Pain, Joint Pain, Joint stiffness, Joint swelling, Joint Tenderness Skin: Denies: Dryness, Pruritis, Rash, Wounds Neurological: Denies: Balance problems, Difficulty swallowing, Focal weakness, Headaches, Incoordination, Numbness, Tingling Psychiatric: Denies: Anxiety, Depression, Homicidal Ideations, Suicidal Ideations Hematologic/ Lymphatic: Denies: Easy Bruising, Easy Bleeding VTE Information - Inpt Only VTE Present on Admission: No VTE Pharm Prophylaxis ordered?: Yes - Physical Exam General: Alert, Oriented x3, Cooperative, Lethargic, - - looks unwell, on 2L oxygen HEENT: Atraumatic, PERRLA, EOMI, Normocephalic Oral: Moist Mucosa Neck: Supple Lungs: Diminished - especially on right side of chest Cardiovascular: Regular rate, Regular Rhythm, Normal S1, Normal S2, No murmurs, Tachycardic Abdomen: Bowel Sounds Present, Soft, Non Tender, Non-Distended, No Hepato-splenomegaly Extremities: No edema Skin: No rashes, No breakdown Musculoskeletal: No Tenderness to Palpation of Joints or Extremities Lymphatic: No Cervical, Supraclavicular, or Inguinal Adenopathy Neurological: Cranial nerves II-XII grossly intact, Neuro grossly intact Psych/Mental Status: Normal Affect, Appropriate Vital Signs Temp Pulse Resp BP Pulse Ox 98.0 F 120 H 32 H 143/101 H 95 11/25/17 10:56 11/25/17 14:16 11/25/17 14:16 11/25/17 14:16 11/25/17 14:16 Oxygen Flow Rate (L/min) 2 Oxygen Delivery Method Nasal Cannula Weight: 73.482 kg Body Mass Index (BMI) 28.7 Laboratory Tests Past 24 Hrs 11/25/17 11/25/17 11/25/17 11:40 11:40 11:40 WBC 20.4 H RBC 3.49 L Hgb 8.5 L Hct 28.2 L MCV 80.8 L MCH 24.4 L MCHC 30.1 L RDW 20.2 H RDW Differential 54.3 H Plt Count 133 L MPV 9.1 Neut % (Auto) Not Reportable Absolute Neuts (auto) 18.4 H Absolute Lymphs (auto) 0.82 L Total Counted 100 Neutrophils % (Manual) 90 H Lymphocytes % (Manual) 4 L Monocytes % (Manual) 3 Metamyelocytes % 1 Myelocytes % 2 H Diff Path Review May foll Platelet Estimate SLT DEC RBC Morphology N CHROM Anisocytosis 1+ Sodium 131 L Potassium 3.7 Chloride 91 L Carbon Dioxide 29.0 Anion Gap 11 BUN 36 H Creatinine 0.86 Estim Creat Clear Calc 72.65 Est GFR (MDRD) Af Amer 94 Est GFR (MDRD) Non-Af 78 BUN/Creatinine Ratio 41.9 H Glucose 143 H Lactic Acid 2.4 H Calcium 10.5 H Total Bilirubin 0.60 AST 24 ALT 14 Alkaline Phosphatase 212 H Total Protein 7.6 Albumin 2.2 L Globulin 5.4 H Albumin/Globulin Ratio 0.4 L Assessment/Plan All Active Problems (This Medical Record has been edited. Action required.) Hydronephrosis, right (Acute) JENNI (acute kidney injury) (Acute) Hypokalemia (Acute) JENNI (acute kidney injury) (Acute) 37 year old F with past medical history of metastatic cervical cancer, moderately invasive squamous cell carcinoma, status post chemotherapy and radiation therapy,bilateral hydronephrosis, status post bilateral ureteral stents, recently discharged on 10/22/2017 with acute kidney injury. 1. Acute hypoxic respiratory failure secondary to massive right pleural effusion, admitting Spo2 in triage was 88% on room air, improved to 95% on 2 L of oxygen, would encourage use of incentive spirometer, breathing treatments as needed 2. Massive right pleural effusion with right lung collapse, seen on CT chest, abdomen and pelvis, likely etiology will be either parapneumonic effusion versus malignant effusion. Discussed with radiology, patient would have ultrasound-guided paracentesis tomorrow, fluid analysis ordered Will also consult pulmonology, further management as #1 3. Severe sepsis secondary to presumed HCAP, recently admitted with right-sided HCAP, unable to see the right lung because of the collapse from pleural effusion,Patient is tachycardic, has leukocytosis, and has elevated lactic acid of 2.4, Blood cultures are pending will start on empiric vancomycin and Zosyn Antibiotics could possibly be stopped after thoracocentesis if there is no evidence of pneumonia on repeat imaging. Continue to hydrate patient and monitor. 4. Metastatic cervical cancer, status post chemo and radiotherapy, following [employer] oncology in the outpatient 5. History of obstructive uropathy, status post bilateral J stents 6. Anemia, microcytic microchromic, status post iron transfusions in the outpatient, will check iron stores 7. Code Status - DNR CCA; I clarified CODE STATUS with the patient and her family. Had previously filled out paperwork which was later found in the system. Patient stated that in the event her heart or lungs should stop, she does not want any tubes or artificial nutritional anything to prolong her life. Her mother Leidy Meyer is a healthcare power of compliance attorney. Has copy of Living will in the system. Her CODE STATUS was made DNR CCA. DNR Paperwork filled out. Code Visit Inpatient E&M: 13844 Subs Hosp L3
[2017-11-25] MEDS: Piperacil/Tazobactam 4.5 GM in NS100 MBP IV (14:31)
[2017-11-25] MEDS: Vancomycin IV 1,000 MG/200 ML BAG 200 MG IV (14:39)
--- NOTE | 2017-11-25 15:18 | PCM.RX.CS ---
Consult Pharmacy has been consulted to manage selected antiobiotic: Vancomycin Type of Consult: New start Suspected Infection: Pneumonia Prior Doses of Antibiotics Received/Current Regimen: VANCOMYCIN 1000MG IV X1 IN ED 11/25/17 @1439 Labs: Sodium 131 mmol/L (136-145) L 11/25/17 11:40 Potassium 3.7 mmol/L (3.5-5.1) 11/25/17 11:40 Chloride 91 mmol/L (98-107) L 11/25/17 11:40 Carbon Dioxide 29.0 mmol/L (21.0-32.0) 11/25/17 11:40 Anion Gap 11 (5-15) 11/25/17 11:40 BUN 36 mg/dL (7-18) H 11/25/17 11:40 Creatinine 0.86 mg/dL (0.55-1.02) 11/25/17 11:40 Est GFR (MDRD) Af Amer 94 mL/min (>60) 11/25/17 11:40 Est GFR (MDRD) Non-Af 78 mL/min (>60) 11/25/17 11:40 BUN/Creatinine Ratio 41.9 RATIO (10-20) H 11/25/17 11:40 Glucose 143 mg/dL (74-106) H 11/25/17 11:40 Weight used for dosin kg Estimated Creatinine Clearance: 72ML/MIN Goal Trough: 15-20 mcg/mL Pharmacy Plan for Drug Dosing: The patient is being treated for suspected HCAP per H/P, will target a higher trough given suspected diagnosis. Will not give initial dose since 1st dose given in ED. Will draw a trough prior to the 4th dose of new regimen. PLAN/RECOMMENDATIONS 1. Vancomycin 1000mg Q12hrs to start 11/26/17 @0200 2. Trough scheduled for 11/27/17 @0130 3. Pharmacy Service will continue to monitor and adjust dosing as required.
[2017-11-25 15:24] LABS: Pathologist Review Reviewed
[2017-11-25 15:31] LABS: International Normalized Ratio 1.9; Prothrombin Time (Protime)PT. 21.7 SECONDS (11.7-14.9)
[2017-11-25 15:40] LABS: Partial Thromboplast Time 38.5 Seconds (24.1-36.2)
[2017-11-25 15:47] LABS: Reflex Lactate? Y
[2017-11-25] MEDS: Ipratropium/Albuterol Sulfate 3 ML AMPUL.NEB INHALATION ×3 (15:48→23:47)
[2017-11-25] MEDS: 0.9% Normal Saline 1,000 ML 100 ML IV (17:13)
[2017-11-25 17:23] LABS: Lactic Acid 1.6 mmol/L (0.4-2.0)
[2017-11-25 19:05] LABS: Mucous, Urine 0 SEEN /hpf (<or=2+); Squamous Epithelial Cells - UA 0 SEEN /hpf (5-10)
[2017-11-25 20:18] LABS: Color, Urine Amber (Yellow); Glucose, Dipstick Normal (Normal); Ketone-Dipstick Negative (Negative); Leukocyte Esterase-Dipstick 500 /ul (Negative); Nitrite-Dipstick Negative (Negative); Occult Blood-Urine 250 /ul (Negative); Protein-Dipstick 100 mg/dl (Negative); Urine Bilirubin Dipstick Negative (Negative); Urine Clarity Cloudy (Clear); Urine Urobilinogen 1 mg/dl (Normal)
[2017-11-25 20:30] LABS: Bacteria 4+ /hpf (None Seen); Red Blood Cells-Urine 0-5 SEEN /hpf (0-5); White Blood Cells 10-25 SEEN /hpf (0-5)
[2017-11-25 20:31] LABS: Triple Phosphate Crystals Ur 1+ /hpf (<or=1+)
[2017-11-25] MEDS: Piperacil/Tazobactam 3.375 GM/50 ML ML IV (21:04)
[2017-11-25] MEDS: 0.9% NaCl Peripheral Flush Adult/Peds IV (22:12)
[2017-11-25] MEDS: Morphine 2 MG/ML Syringe 1 MG IV (22:12)
[2017-11-26] VITALS (30 sets, daily range): BP systolic 118–156; BP diastolic 73–95; PULSE 106–132; RESP 16–30; TEMP 36.6–37.2; O2SAT 93–97; BMI 28.9
[2017-11-26] MEDS: 0.9% Normal Saline 1,000 ML 100 ML IV
--- NOTE | 2017-11-26 | FLU_PTH ---
PATIENT: HELLEN BECERRA LOC: [facility] U#:[id number] AGE/SX: 37/F ROOM: [facility] RE11/25/[address]: Dr. Ariane Landaverde MD : 1980 BED: 1 DIS: 11/28/2017 SPEC #: [id number] RECD: 11/26/17 14:37 STATUS: ENIO REAmelie #: [id number] ANGELA: 11/26/17 00:[address]: Ariane Landaverde DEPT: CYTOLOGY RECD BY: Roxie Huynh ENTERED: 11/27/17 09:41 SP TYPE: Fluid OTHR DR: MD Dr. Merly Katz DO Dr. Robert Leininger, MD Tissues: THORACIC FLUID Procedures: Pap Stain (control) Special Stain Group II Surgery Specimen Level IV Cell Block Cytospin Fluid HEADER OPERATION: Ultrasound guided right thoracentesis PRE-OP DIAGNOSIS: Right thoracentesis TISSUE SUBMITTED: Ultrasound guided right thoracentesis fluid for cytology DIAGNOSIS CYTOLOGY Ultrasound guided right thoracentesis fluid for cytology (cytospin and cell block): Rare degenerative epithelioid cells present. AM:pati 11/28/17 COMMENT Case has been reviewed in consultation with Dr. Jara who concurs with the above diagnosis. IDC:SJ CYTOLOGY STUDY Slides are reviewed. CYTOLOGY GROSS Received is 110 ml of dacia cloudy fluid labeled with the patient's name and and designated per the requisition as thoracic fluid. Submitted for cytology preparation including cell block. /RY:rosalina 11/27/17 TC:? CPT: 23086
[2017-11-26] MEDS: Vancomycin IV 1,000 MG/200 ML BAG 200 MG IV ×2 (01:06→15:18)
[2017-11-26] MEDS: oxyCODONE 5 MG Tablet PO ×3 (01:54→16:51)
[2017-11-26] MEDS: Ipratropium/Albuterol Sulfate 3 ML AMPUL.NEB INHALATION ×5 (03:50→23:24)
[2017-11-26] MEDS: Piperacil/Tazobactam 3.375 GM/50 ML ML IV ×3 (05:47→21:45)
[2017-11-26 06:50] LABS: Prothrombin Time (Protime)PT. 22.4 SECONDS (11.7-14.9)
[2017-11-26 06:51] LABS: Partial Thromboplast Time 36.6 Seconds (24.1-36.2)
--- NOTE | 2017-11-26 07:00 | US_ITS ---
PROCEDURE: ULTRASOUND GUIDED THORACENTESIS. DATE: November 26, 2017. INDICATION: Female, 37 years old. Right pleural effusion PHYSICIAN: Sixto Shabazz M.D. PROCEDURE: The risks, benefits, and alternatives to the procedure were explained to the patient. The specific risks of bleeding, infection, and pneumothorax requiring chest tube insertion were discussed and accepted. Written informed consent was obtained. Ultrasonographic evaluation of the right lower pleural space was carried out. An adequate pocket was identified. The patient was placed in the sitting, upright position. The overlying skin was prepped and draped in sterile fashion. 1% lidocaine was administered subcutaneously for local anesthesia. Under ultrasound guidance, a 5French thoracentesis needle/catheter system was advanced into the right posterior lower pleural fluid collection. Approximately 920 mL of dark dacia-colored fluid was drained. The catheter was removed, and a sterile dressing was applied. A specimen was collected and sent to the laboratory for analysis, as requested by the referring clinician. The patient tolerated the procedure well. A chest x-ray was ordered. US/Thoracentesis W US IMPRESSION: Ultrasound-guided right thoracentesis. Electronically Signed: Sixto Shabazz MD at 14:56 EDT Tel [phone], Service support ,
[2017-11-26 07:05] LABS: Absolute Lymphocyte Count 0.74 X10^3/ul (0.83-4.51); Basophil# 0.02 X10^3/uL; Basophil% 0.1 % (0-1); Hematocrit 22.9 % (37-47); Hemoglobin 6.8 g/dl (12.0-15.0); Lymphocyte # 0.74 X10^3/ul (4.0); Lymphocyte % 4.7 % (19-41); Mean Corp Hgb Conc 29.7 g/gl (32-36); Mean Corpuscular Volume 80.9 fL (81-99); Mean Platelet Vol. 8.3 fl (6.2-12.0); Monocyte# 0.74 X10^3/uL; Monocyte% 4.7 % (0-10); Neutrophil # 14.02 X10^3/uL (2.7-7.7); Neutrophil % 88.4 % (47-70); Platelet Count 83 K/mm3 (150-450); RBC Distribution Width CV 20.4 % (11.6-14.6); RBC Distribution Width SD 59.3 fl (35.1-43.9); Red Blood Count 2.83 M/mm3 (4.2-5.4); White Blood Count 15.9 K/mm3 (4.4-11.0)
[2017-11-26 07:06] LABS: ALB/GLOB Ratio 0.4 RATIO (0.9-2.4); AST(SGOT) 24 U/L (15-37); Alanine Aminotransfer ALT/SGPT 13 U/L (13-56); Albumin, Serum 1.8 g/dL (3.2-5.0); Alkaline Phosphatase 176 U/L (45-117); Anion Gap 15 (5-15); BUN 24 mg/dL (7-18); BUN/Creat Ratio 39.4 RATIO (10-20); Calcium,Total 9.1 mg/dL (8.5-10.1); Chloride 103 mmol/L (98-107); Creatinine, Serum 0.61 mg/dL (0.55-1.02); EST Glomerular Filtration Rate 116 mL/min (>60); Est Glom Filt Rate - Afr Amer 140 mL/min (>60); Estimated Creatinine Clearance 102.43 ml/min; Globulin 4.5 g/dL (2.2-4.2); Glucose 118 mg/dL (74-106); LDH 151 U/L (84-246); Protein, Total 6.3 g/dL (6.4-8.2); Sodium Level 140 mmol/L (136-145)
[2017-11-26 07:08] LABS: Differential Indicated SCAN CRITERIA MET; POSITIVE COUNT YES; POSITIVE DIFFERENTIAL NO; POSITIVE MORPHOLOGY YES
[2017-11-26 07:23] LABS: Differential Comment SCANNED; Hypochromasia 2+; Microcytosis 3+; Platelet Estimate SLT DEC (ADEQ)
--- NOTE | 2017-11-26 08:14 | CON.PCM_ITS ---
Problem List (1) Pleural effusion Status: Acute (2) Hypoxemia Status: Acute (3) Cervical cancer Status: Chronic Qualifiers: Malignant neoplasm of cervix location: unspecified location Qualified Code( s): C53.9 - Malignant neoplasm of cervix uteri, unspecified Reason for Consult Date of Consultation: 11/26/17 Reason for Consultation: Pleural effusion History of Present Illness: The patient is a 37 year old F, with past medical history listed below, who presented to [facility] on 11/25/2017 secondary to progressive shortness of breath and subjective fevers over approximately 1 week. Patient reportedly has a history of cervical cancer and was recently discharged on 2017 with acute kidney injury status post bilateral ureteral stents. Patient has been receiving radiation therapy, but reports she has not been initiated on chemotherapy. Patient states that over the last week she has noted increasing shortness of breath and orthopnea. Patient denies any coughing or sputum production. On presentation to the emergency room, patient was noted to be tachycardic at 147 bpm with an elevated WBC count of 20.4. Patient did have a decreased sodium at 131 and creatinine was close to baseline at 0.86. CT scan of the chest, abdomen and pelvis showed a large right-sided pleural effusion with collapse, small left pleural effusion and multiple nodules of the left lung. Patient was admitted to the floor for further evaluation. Since admission, patient reports very little change in overall condition. Patient does feel that she is slightly improved with addition of supplemental oxygen. Patient denies any chest pain, abdominal pain, nausea or vomiting. Patient denies any recent bleeding complications such as epistaxis, hemoptysis or melena. Patient is clear that she has not received any chemotherapy and only radiation. She states that she is followed by Dr. Diop. Patient reportedly had a PET scan with a right-sided nodule previously. Past Medical History Past Medical History (Chronic Problems): Chronic Problems (This Medical Record has been edited. Action required.) Pelvic mass (Chronic) Cervical cancer (Chronic) HCAP (healthcare-associated pneumonia) (Chronic) Allergies No Known Allergies Allergy (Verified 11/25/17 10:56) Home Medications: Ambulatory Orders Medication Instructions Recorded Morphine Sulfate [Morphine Sulfate 30 mg PO QHS 10/20/17 ER] Ondansetron [Zofran Odt] 4 mg PO Q6H PRN 10/20/17 Oxycodone HCl/Acetaminophen 1 tablet PO Q4H PRN PRN 10/20/17 [Percocet 5-325] Sennosides [Senna Laxative] 2 tab PO BID 10/20/17 Sertraline HCl [Zoloft] 50 mg PO DAILY 10/20/17 Surgical History: - - LEEP Psychiatric History: Anxiety, Depression 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 Patient Problems: Active and Suspected Problems (This Medical Record has been edited. Action required.) Pleural effusion (Acute) Hypoxemia (Acute) Objective: Chest imaging was personally reviewed and does show a large right-sided pleural effusion with small left-sided pleural effusion. There are 2 nodules noted in the periphery of the left lung. - Physical Exam General: Alert, Oriented x3, Cooperative, - - Mild respiratory distress. Appears stated age. HEENT: Atraumatic, PERRLA, EOMI, Normocephalic, - - No scleral icterus or injection noted. Oral: No Gingival or Mucosal Lesions/ Ulcerations, Dry Mucosa Neck: Supple, No JVD, No Nodes, Trachea Midline Lungs: Diminished - No breath sounds noted on the right side., - - No accessory muscle use noted. Cardiovascular: Normal S1, Normal S2, No murmurs, No rub noted, No Gallop, Tachycardic Abdomen: Bowel Sounds Present, Soft, Non Tender, Non-Distended, Obese Extremities: No clubbing, No cyanosis, Capillary Refill Less than 3 Seconds, Edema Skin: No rashes, Ulcer/ Wound - 3 areas of ulceration, one on the left buttock, 2 on the right buttock and unstageable in other areas. Musculoskeletal: No Tenderness to Palpation of Joints or Extremities Lymphatic: No Cervical, Supraclavicular, or Inguinal Adenopathy Neurological: Cranial nerves II-XII grossly intact, Neuro grossly intact, Motor Exam 5/5 strength throughout Psych/Mental Status: Alert and oriented to time, place, person, mood and affect Vital Signs Temp Pulse Resp BP Pulse Ox 36.8 C 128 H 16 140/87 H 97 11/26/17 04:30 11/26/17 06:53 11/26/17 04:30 11/26/17 04:30 11/26/17 04:30 Oxygen Flow Rate (L/min) 2 Oxygen Delivery Method Nasal Cannula Weight: 74 kg Body Mass Index (BMI) 28.9 Intake and Output for Last 24 Hours 11/24/17 11/25/17 11/26/17 23:59 23:59 23:59 Intake Total 1275.4 / 1275.4 830 / 830 Output Total 600 / 600 300 / 300 Balance 675.4 / 675.4 530 / 530 Microbiology Past 72 Hours 11/25/17 18:50 Streptococcus pneumoniae Antigen (M - Final Urine Catheter - Catheter Streptococcus pneumonia Ag 11/25/17 18:50 Legionella Antigen - Final Urine Catheter - Catheter Laboratory Tests Past 24 Hrs 11/25/17 11/25/17 11/26/17 16:30 18:50 06:32 WBC 15.9 H RBC 2.83 L Hgb 6.8 L Hct 22.9 L MCV 80.9 L MCH 24.0 L MCHC 29.7 L RDW 20.4 H RDW Differential 59.3 H Plt Count 83 L MPV 8.3 Immature Gran % (Auto) 2.100 H Neut % (Auto) 88.4 H Lymph % (Auto) 4.7 L Mcintosh % (Auto) 4.7 Eos % (Auto) 0.0 Baso % (Auto) 0.1 Absolute Neuts (auto) 14.0 H Absolute Lymphs (auto) 0.74 L Total Counted Not Reportable Differential Comment SCANNED Diff Path Review May foll Platelet Estimate SLT DEC Hypochromasia 2+ Microcytosis 3+ PT INR APTT Sodium Potassium Chloride Carbon Dioxide Anion Gap BUN Creatinine Estim Creat Clear Calc Est GFR (MDRD) Af Amer Est GFR (MDRD) Non-Af BUN/Creatinine Ratio Glucose Lactic Acid 1.6 Calcium Total Bilirubin AST ALT Alkaline Phosphatase Lactate Dehydrogenase Total Protein Albumin Globulin Albumin/Globulin Ratio Urine Color Fang Urine Clarity Cloudy Urine pH 8.0 Ur Specific [place] 1.010 Urine Protein 100 H Urine Glucose (UA) Normal Urine Ketones Negative Urine Occult Blood 250 H Urine Nitrite Negative Urine Bilirubin Negative Urine Urobilinogen 1 H Ur Leukocyte Esterase 500 H Urine RBC 0-5 SEEN Urine WBC 10-25 SEEN Ur Squamous Epith Cells 0 SEEN Triple Phos Crystals 1+ Urine Bacteria 4+ Urine Mucus 0 SEEN 11/26/17 11/26/17 06:32 06:32 WBC RBC Hgb Hct MCV MCH MCHC RDW RDW Differential Plt Count MPV Immature Gran % (Auto) Neut % (Auto) Lymph % (Auto) Mcintosh % (Auto) Eos % (Auto) Baso % (Auto) Absolute Neuts (auto) Absolute Lymphs (auto) Total Counted Differential Comment Diff Path Review Platelet Estimate Hypochromasia Microcytosis PT 22.4 H INR 2.0 APTT 36.6 H Sodium 140 Potassium 3.0 L Chloride 103 Carbon Dioxide 22.0 Anion Gap 15 BUN 24 H Creatinine 0.61 Estim Creat Clear Calc 102.43 Est GFR (MDRD) Af Amer 140 Est GFR (MDRD) Non-Af 116 BUN/Creatinine Ratio 39.4 H Glucose 118 H Lactic Acid Calcium 9.1 Total Bilirubin 0.50 AST 24 ALT 13 Alkaline Phosphatase 176 H Lactate Dehydrogenase 151 Total Protein 6.3 L Albumin 1.8 L Globulin 4.5 H Albumin/Globulin Ratio 0.4 L Urine Color Urine Clarity Urine pH Ur Specific [place] Urine Protein Urine Glucose (UA) Urine Ketones Urine Occult Blood Urine Nitrite Urine Bilirubin Urine Urobilinogen Ur Leukocyte Esterase Urine RBC Urine WBC Ur Squamous Epith Cells Triple Phos Crystals Urine Bacteria Urine Mucus Clinical Impression(s) from Imaging Studies Abdomen/Pelvis CT 11/25/17 12:33 IMPRESSION: Moderate to large sized right pleural effusion with collapse of the right lower lobe. Small left pleural effusion with atelectasis and nodular densities at the left lung base. Mild right hydronephrosis. Bilateral double-J stent catheters in situ. Electronically Signed: Sixto Shabazz MD at 13:48 EDT Tel [phone], Service support , Chest CT 11/25/17 12:58 IMPRESSION: Large right pleural effusion with volume loss and collapse of the right lung. Small left pleural effusion with multiple left lung nodules. Findings suggest bony metastasis. Electronically Signed: Sixto Shabazz MD at 13:53 EDT Tel [phone], Service support , Assessment/Plan All Active Problems (This Medical Record has been edited. Action required.) Hydronephrosis, right (Acute) JENNI (acute kidney injury) (Acute) Hypokalemia (Acute) Pleural effusion (Acute) Hypoxemia (Acute) JENNI (acute kidney injury) (Acute) RECOMMENDATIONS: 1. Continue broad-spectrum antibiotics 2. Transfuse FFP for elevated INR 3. Transfuse 1 unit of packed red blood cells 4. Diagnostic and therapeutic thoracentesis 5. Monitor for hemodynamic instability, possible transfer to the intensive care unit 6. Wean oxygen as tolerated IMPRESSIONS: 1. Acute hypoxic respiratory insufficiency secondary to large right-sided pleural effusion Patient with multiple possible etiologies for large right-sided pleural effusion. Patient did have a history of a PET positive nodule on the right per her report, so malignant pleural effusion would be a consideration. Patient does have both blood cultures coming back with gram-negative bacilli and is pneumococcal antigen positive, so parapneumonic versus empyema is also a consideration. Patient's INR is slightly elevated, so FFP will be given. Patient should have a diagnostic and therapeutic thoracentesis as soon as possible. Wean oxygen as tolerated. Patient should remain on broad-spectrum antibiotics. 2. Severe sepsis Patient with multiple possible sources of infection. Patient is pneumococcal antigen positive, but also has gram negatives growing in blood cultures already. Patient may have significant decompensation over the next 24- 48 hours given antibiotics and gram-negative bacteremia. High clinical suspicion for urinary source given patient's history for gram-negative bacteremia. 3. Metastatic cervical cancer/history of obstructive uropathy/anemia Complicates care, management, recovery and prognosis. Patient hemoglobin of 6.8 this morning. Will transfuse packed red blood cells. No obvious signs of blood loss at this time. Patient has received cervical radiation, but no chemo at this time. Code Visit Inpatient E&M: 28524 Init Hosp L3
[2017-11-26] MEDS: Collagenase 30gm Tube 1 APPLIC TOPICAL (10:08)
[2017-11-26] MEDS: guaiFENesin 1,200 MG Tablet 1200 MG PO ×2 (10:08→21:45)
[2017-11-26] MEDS: Sertraline 50 MG Tablet PO (10:09)
--- NOTE | 2017-11-26 12:19 | NURSING ---
wound photo: coccyx/bilateral buttock
[2017-11-26] MEDS: 0.9% NaCl Peripheral Flush Adult/Peds IV ×3 (13:17→16:51)
--- NOTE | 2017-11-26 13:59 | NURSING ---
To ultrasound for thoracentesis.
--- NOTE | 2017-11-26 14:47 | PCM.PN.HOSP ---
Patient Problems: Active and Suspected Problems (This Medical Record has been edited. Action required.) Pleural effusion (Acute) Hypoxemia (Acute) Subjective: Patient was seen and examined. About the same. Remains on 2 L of oxygen. Will be going for ultrasound-guided thoracocentesis today. Objective: Physical Exam General: Alert, Oriented x3, Cooperative, Lethargic, - - looks unwell, on 2L oxygen HEENT: Atraumatic, PERRLA, EOMI, Normocephalic Oral: Moist Mucosa Neck: Supple Lungs: Diminished - especially on right side of chest Cardiovascular: Regular rate, Regular Rhythm, Normal S1, Normal S2, No murmurs, Tachycardic Abdomen: Bowel Sounds Present, Soft, Non Tender, Non-Distended, No Hepato-splenomegaly Extremities: No edema Skin: No rashes, No breakdown Musculoskeletal: No Tenderness to Palpation of Joints or Extremities Lymphatic: No Cervical, Supraclavicular, or Inguinal Adenopathy Neurological: Cranial nerves II-XII grossly intact, Neuro grossly intact Psych/Mental Status: Normal Affect, Appropriate Vitals/I&O's: Vital Signs Temp Pulse Resp BP Pulse Ox 98.0 F 122 H 20 H 141/83 H 95 11/26/17 12:40 11/26/17 12:40 11/26/17 12:40 11/26/17 12:40 11/26/17 12:40 Oxygen Flow Rate (L/min) 2 Oxygen Delivery Method Room Air Weight: 74 kg Body Mass Index (BMI) 28.9 Intake and Output for Last 24 Hours 11/24/17 11/25/17 11/26/17 23:59 23:59 23:59 Intake Total 1275.4 / 1275.4 2582 / 2582 Output Total 600 / 600 650 / 650 Balance 675.4 / 675.4 1932 / 1932 Microbiology Past 72 Hours 11/26/17 Unknown Sputum, Expectorated/Coughed Gram Stain - Final 11/25/17 18:50 Urine Catheter - Catheter Streptococcus pneumoniae Antigen (M - Final Streptococcus pneumonia Ag 11/25/17 18:50 Urine Catheter - Catheter Legionella Antigen - Final Laboratory Results 11/25/17 16:30: Lactic Acid 1.6 11/25/17 18:50: Urine Color Fang, Urine Clarity Cloudy, Urine pH 8.0, Ur Specific Norco 1.010, Urine Protein 100 H, Urine Glucose (UA) Normal, Urine Ketones Negative, Urine Occult Blood 250 H, Urine Nitrite Negative, Urine Bilirubin Negative, Urine Urobilinogen 1 H, Ur Leukocyte Esterase 500 H, Urine RBC 0-5 SEEN, Urine WBC 10-25 SEEN, Ur Squamous Epith Cells 0 SEEN, Triple Phos Crystals 1+, Urine Bacteria 4+, Urine Mucus 0 SEEN 11/26/17 06:32: WBC 15.9 H, RBC 2.83 L, Hgb 6.8 L, Hct 22.9 L, MCV 80.9 L, MCH 24.0 L, MCHC 29.7 L, RDW 20.4 H, RDW Differential 59.3 H, Plt Count 83 L, MPV 8.3, Immature Gran % (Auto) 2.100 H, Neut % (Auto) 88.4 H, Lymph % (Auto) 4.7 L, Winkler % (Auto) 4.7, Eos % (Auto) 0.0, Baso % (Auto) 0.1, Absolute Neuts (auto) 14.0 H, Absolute Lymphs (auto) 0.74 L, Total Counted Not Reportable, Differential Comment SCANNED, Diff Path Review August foll, Platelet Estimate SLT DEC, Hypochromasia 2+, Microcytosis 3+ 11/26/17 06:32: Sodium 140, Potassium 3.0 L, Chloride 103, Carbon Dioxide 22.0, Anion Gap 15, BUN 24 H, Creatinine 0.61, Estim Creat Clear Calc 102.43, Est GFR (MDRD) Af Amer 140, Est GFR (MDRD) Non-Af 116, BUN/Creatinine Ratio 39.4 H, Glucose 118 H, Calcium 9.1, Total Bilirubin 0.50, AST 24, ALT 13, Alkaline Phosphatase 176 H, Lactate Dehydrogenase 151, Total Protein 6.3 L, Albumin 1.8 L, Globulin 4.5 H, Albumin/Globulin Ratio 0.4 L 11/26/17 06:32: PT 22.4 H, INR 2.0, APTT 36.6 H 11/26/17 08:24: Blood Type B POSITIVE, Antibody Screen NEGATIVE, Crossmatch See Detail Current Medications Acetaminophen (Tylenol) 650 mg PO Q4H PRN PRN PRN Reason: FEVER Albuterol/Ipratropium (Duoneb) 3 ml INHALATION Q4H.RT MITA Last Admin: 11/26/17 11:10 Dose: 3 ml Collagenase (Santyl) 1 applic TOPICAL DAILY MITA PRN Reason: Protocol Last Admin: 11/26/17 10:08 Dose: 1 applicatio Docusate Sodium (Colace) 200 mg PO BID PRN PRN PRN Reason: Constipation Guaifenesin (Mucinex) 1,200 mg PO BID [facility] Last Admin: 11/26/17 10:08 Dose: 1,200 mg Heparin Sodium (Porcine) (Heparin Na) 5,000 unit SC Q8 [facility] Piperacillin Sod/Tazobactam Sod (Zosyn) 3.375 gm in 50 mls @ 12.5 mls/hr IV Q8 [facility] Last Admin: 11/26/17 05:47 Dose: 12.5 mls/hr Vancomycin IV Pharmacy to Dose (1 ea/ Sodium Chloride) 500 mls @ 250 mls/hr IV PRN PRN; Protocol PRN Reason: Rx to Dose Vancomycin HCl (Vancomycin) 1,000 mg in 200 mls @ 200 mls/hr IV Q12H [facility] Last Admin: 11/26/17 01:06 Dose: 200 mls/hr Melatonin (Melatonin) 3 mg PO QHS PRN PRN Reason: INSOMNIA Morphine Sulfate (Ms Contin) 30 mg PO QHS [facility] Last Admin: 11/25/17 21:00 Dose: Not Given Morphine Sulfate () 1 mg IV Q4H PRN PRN PRN Reason: SEVERE PAIN (6-10/10) Last Admin: 11/25/17 22:12 Dose: 1 mg Nutritional Formula (Lactose Free) (Ensure Clear) 120 ml PO 4X/DAY [facility] Ondansetron HCl (Zofran) 4 mg IV Q8H PRN PRN PRN Reason: NAUSEA Oxycodone HCl (Oxyir) 5 mg PO Q4H PRN PRN Reason: PAIN Last Admin: 11/26/17 10:08 Dose: 5 mg Senna (Senokot) 2 tablet PO BID [facility] Last Admin: 11/26/17 10:09 Dose: Not Given Sertraline HCl (Zoloft) 50 mg PO DAILY [facility] Last Admin: 11/26/17 10:09 Dose: 50 mg Sodium Chloride () 5 - 30 ml IV UD PRN PRN Reason: SALINE FLUSH Last Admin: 11/26/17 13:17 Dose: 10 ml Medical Necessity - Tobacco Use Smoking Status: Former smoker Tobacco Use: Non-smoker Assessment/Plan All Active Problems (This Medical Record has been edited. Action required.) Hydronephrosis, right (Acute) JENNI (acute kidney injury) (Acute) Hypokalemia (Acute) Pleural effusion (Acute) Hypoxemia (Acute) JENNI (acute kidney injury) (Acute) 37 year old F with past medical history of metastatic cervical cancer, moderately invasive squamous cell carcinoma, status post chemotherapy and radiation therapy,bilateral hydronephrosis, status post bilateral ureteral stents, recently discharged on 10/22/2017 with acute kidney injury. 1. Acute hypoxic respiratory failure secondary to massive right pleural effusion, remains on 2 L of oxygen, would encourage use of incentive spirometer, breathing treatments as needed 2. Massive right pleural effusion with right lung collapse, seen on CT chest, abdomen and pelvis, likely etiology will be either parapneumonic effusion versus malignant effusion. Will be going for thoracocentesis today. Pulmonology consulted 3. GNR severe sepsis secondary to presumed HCAP, recently admitted with right-sided HCAP, blood cultures growing gram-negative mallory, urine streptococcal antigen positive, being managed on vancomycin and Zosyn 4. GNR bacteremia, on Zosyn, ID consulted 5. Metastatic cervical cancer, status post chemo and radiotherapy, following [facility] oncology in the outpatient 6. History of obstructive uropathy, status post bilateral J stents, will get urine cultures 7. Anemia, microcytic microchromic, status post iron transfusions in the outpatient, will check iron stores 8. Code Status - DNR CCA 9. DVT PPx- Lovenox SC Code Visit Inpatient E&M: 97719 Subs Hosp L2
[2017-11-26 14:54] LABS: Cytology, Body Fluid / CSF SEE PATHOLOGY REPORT
[2017-11-26 15:06] LABS: Auto B Fluid Analyzer BKGD Ct COUNTS W/IN LIMITS (W/IN LIMITS); Body Fluid Mononuclear WBC # 0.426 10^3/uL; Body Fluid Mononuclear WBC % 28.8 %; Body Fluid Polynuclear WBC # 1.054 10^3/uL; Body Fluid Polynuclear WBC % 71.2 %; Body Fluid Total Cells Counted 1.488 10^3/ul (0.000-0.000)
[2017-11-26 15:07] LABS: Pathologist Review Reviewed
[2017-11-26 15:07] LABS: Appearance/Body Fluid CLOUDY; Body Fluid QC Type(s) BF1Q; Color/Body Fluid YELLOW; Source- Body Fluid THORACENTESIS
[2017-11-26 15:22] LABS: International Normalized Ratio 1.5; Prothrombin Time (Protime)PT. 18.5 SECONDS (11.7-14.9)
[2017-11-26 15:28] LABS: Glucose, Body Fluid 37 mg/dL (40-70); LDH,Body Fluid 887 Units/l (Not Establ.); Protein, Body Fluid 4.1 g/dL (Not Establ.)
[2017-11-26 15:44] LABS: Lymphocytes 30 %; Monocytes 6 %; Neutrophil (Segs) 64 %
--- NOTE | 2017-11-26 16:00 | CASEMGMT ---
SEE MERI SANCHEZ ASSESS LINK: D/C PLAN: HOME Intro role to MERI SANCHEZ. Pt resting in bed w/HOB elevated. Mother and father @ bedside. Pt and parents agreeable to assess and all questions answered. Pt lives with her parents in a one-story home. Pt's mother states they do have a shower chair but no other medical equip at this time and both mother and pt state they do not need any other medical equipment at this time. Mother reports they have access to a walker if they would need it and reports pt does not use assisted devices when walking. When asked pt stated I don't usually get up. Mother reports pt will hold onto items and goes slowly when she is up ambulating. Pt is currently on O2 @ 2 L/M. Pt schmitt not have O2 @ home. Mother states would prefer [facility] if DME or O2 is needed. Pt and mother state that they do want want SNF or HHC at this time. Mother states she is taking time off of work to care for pt and does not need help at this time and pt reports she wants to return home. CM to follow for discharge planning needs that may arise. Porfirio DE JESUSN MERI SANCHEZ
[2017-11-26 16:05] LABS: BUN 19 mg/dL (7-18); Creatinine, Serum 0.66 mg/dL (0.55-1.02); Estimated Creatinine Clearance 94.67 ml/min; Glucose 124 mg/dL (74-106)
[2017-11-26 16:06] LABS: Anion Gap 14 (5-15); BUN/Creat Ratio 28.8 RATIO (10-20); Calcium,Total 9.5 mg/dL (8.5-10.1); Chloride 101 mmol/L (98-107); EST Glomerular Filtration Rate 106 mL/min (>60); Est Glom Filt Rate - Afr Amer 128 mL/min (>60); Sodium Level 139 mmol/L (136-145)
[2017-11-26 16:56] LABS: Ferritin 1927 ng/mL (8-252); Iron 42 ug/dL (50-170); Iron Binding Capacity,Total 201 ug/dL (250-450); PERCENT IRON SATURATION 20.9 % (15.0-55.0)
[2017-11-26] MEDS: Senna Tablet 2 TABLET PO (21:45)
--- NOTE | 2017-11-26 22:11 | PCM.HP.ID ---
Problem List (1) Bacteremia due to Gram-negative bacteria Status: Acute Reason for Consult: bacteremia Consulted by: Dr. Landaverde History of Present Illness: (Late entry) The patient is a 37 year old F with h/o metastatic cervical cancer who had recent admission in October for JENNI requiring bilat ureteral stent placement. Presented to ED 11/25 with one week of fever, chills, and progressive SOB, worse with exertion. Had some cough, but no sputum. Also c/o R sided abd pain, not associated with po intake. Pain was severe, dull/sharp, constant. No recent abx. No new rash. No ports/lines in place. Came to ED, found to be septic, cxs sent, started on vanc/zosyn. Had large pleural effusion, pulm consulted, and thoracentesis done today. Full ROS performed and neg except as noted above. - Medical History Past Medical History (Chronic Problems): Chronic Problems (This Medical Record has been edited. Action required.) Pelvic mass (Chronic) Cervical cancer (Chronic) HCAP (healthcare-associated pneumonia) (Chronic) Allergies/Adverse Reactions: Allergies No Known Allergies Allergy (Verified 11/25/17 10:56) Home Medications: Ambulatory Orders Medication Instructions Recorded Morphine Sulfate [Morphine Sulfate 30 mg PO QHS 10/20/17 ER] Ondansetron [Zofran Odt] 4 mg PO Q6H PRN 10/20/17 Oxycodone HCl/Acetaminophen 1 tablet PO Q4H PRN PRN 10/20/17 [Percocet 5-325] Sennosides [Senna Laxative] 2 tab PO BID 10/20/17 Sertraline HCl [Zoloft] 50 mg PO DAILY 10/20/17 - Social History SMOKING STATUS:: Former smoker Vital Signs Temp Pulse Resp BP Pulse Ox 98.1 F 110 H 18 150/83 H 95 11/26/17 20:00 11/26/17 20:00 11/26/17 20:00 11/26/17 20:00 11/26/17 20:03 Oxygen Flow Rate (L/min) 2 Oxygen Delivery Method Nasal Cannula Weight: 74 kg Body Mass Index (BMI) 28.9 Microbiology Past 72 Hours 11/26/17 Unknown Gram Stain - Final Sputum, Expectorated/Coughed 11/25/17 18:50 Streptococcus pneumoniae Antigen (M - Final Urine Catheter - Catheter Streptococcus pneumonia Ag 11/25/17 18:50 Legionella Antigen - Final Urine Catheter - Catheter Laboratory Tests Past 24 Hrs 11/26/17 11/26/17 11/26/17 06:32 06:32 06:32 WBC 15.9 H RBC 2.83 L Hgb 6.8 L Hct 22.9 L MCV 80.9 L MCH 24.0 L MCHC 29.7 L RDW 20.4 H RDW Differential 59.3 H Plt Count 83 L MPV 8.3 Immature Gran % (Auto) 2.100 H Neut % (Auto) 88.4 H Lymph % (Auto) 4.7 L Pike % (Auto) 4.7 Eos % (Auto) 0.0 Baso % (Auto) 0.1 Absolute Neuts (auto) 14.0 H Absolute Lymphs (auto) 0.74 L Total Counted Not Reportable Differential Comment SCANNED Diff Path Review Reviewed Platelet Estimate SLT DEC Hypochromasia 2+ Microcytosis 3+ PT 22.4 H INR 2.0 APTT 36.6 H Sodium 140 Potassium 3.0 L Chloride 103 Carbon Dioxide 22.0 Anion Gap 15 BUN 24 H Creatinine 0.61 Estim Creat Clear Calc 102.43 Est GFR (MDRD) Af Amer 140 Est GFR (MDRD) Non-Af 116 BUN/Creatinine Ratio 39.4 H Glucose 118 H Calcium 9.1 Iron TIBC Iron Saturation Ferritin Total Bilirubin 0.50 AST 24 ALT 13 Alkaline Phosphatase 176 H Lactate Dehydrogenase 151 Total Protein 6.3 L Albumin 1.8 L Globulin 4.5 H Albumin/Globulin Ratio 0.4 L Fluid Source Fluid Color Fluid Appearance Fluid WBC Fluid RBC Fluid Tot Cell Count Fld Polynuclear WBCs # Fld Polynuclear WBCs % Fluid Mononuclear WBCs Fld Mononuclear WBCs % Fluid Neutrophils Fluid Lymphocytes Fluid Monocytes Fl Pathologist Comment Fluid Glucose Fluid Total Protein Fluid LDH Fluid Comment 2 Miscellaneous Cytology Blood Type Antibody Screen Crossmatch 11/26/17 11/26/17 11/26/17 08:24 14:37 14:37 WBC RBC Hgb Hct MCV MCH MCHC RDW RDW Differential Plt Count MPV Immature Gran % (Auto) Neut % (Auto) Lymph % (Auto) Pike % (Auto) Eos % (Auto) Baso % (Auto) Absolute Neuts (auto) Absolute Lymphs (auto) Total Counted Differential Comment Diff Path Review Platelet Estimate Hypochromasia Microcytosis PT INR APTT Sodium Potassium Chloride Carbon Dioxide Anion Gap BUN Creatinine Estim Creat Clear Calc Est GFR (MDRD) Af Amer Est GFR (MDRD) Non-Af BUN/Creatinine Ratio Glucose Calcium Iron TIBC Iron Saturation Ferritin Total Bilirubin AST ALT Alkaline Phosphatase Lactate Dehydrogenase Total Protein Albumin Globulin Albumin/Globulin Ratio Fluid Source THORACENTESIS Fluid Color YELLOW Fluid Appearance CLOUDY Fluid WBC 1.480 Fluid RBC 0.90468 Fluid Tot Cell Count 1.488 H Fld Polynuclear WBCs # 1.054 Fld Polynuclear WBCs % 71.2 Fluid Mononuclear WBCs 0.426 Fld Mononuclear WBCs % 28.8 Fluid Neutrophils 64 Fluid Lymphocytes 30 Fluid Monocytes 6 Fl Pathologist Comment May follow Fluid Glucose 37 L Fluid Total Protein 4.1 Fluid LDH 887 Fluid Comment 2 SEE COMMENT Miscellaneous Cytology Blood Type B POSITIVE Antibody Screen NEGATIVE Crossmatch See Detail 11/26/17 11/26/17 11/26/17 14:37 15:04 15:04 WBC RBC Hgb Hct MCV MCH MCHC RDW RDW Differential Plt Count MPV Immature Gran % (Auto) Neut % (Auto) Lymph % (Auto) Pike % (Auto) Eos % (Auto) Baso % (Auto) Absolute Neuts (auto) Absolute Lymphs (auto) Total Counted Differential Comment Diff Path Review Platelet Estimate Hypochromasia Microcytosis PT 18.5 H INR 1.5 APTT Sodium 139 Potassium 3.0 L Chloride 101 Carbon Dioxide 24.0 Anion Gap 14 BUN 19 H Creatinine 0.66 Estim Creat Clear Calc 94.67 Est GFR (MDRD) Af Amer 128 Est GFR (MDRD) Non-Af 106 BUN/Creatinine Ratio 28.8 H Glucose 124 H Calcium 9.5 Iron TIBC Iron Saturation Ferritin Total Bilirubin AST ALT Alkaline Phosphatase Lactate Dehydrogenase Total Protein Albumin Globulin Albumin/Globulin Ratio Fluid Source Fluid Color Fluid Appearance Fluid WBC Fluid RBC Fluid Tot Cell Count Fld Polynuclear WBCs # Fld Polynuclear WBCs % Fluid Mononuclear WBCs Fld Mononuclear WBCs % Fluid Neutrophils Fluid Lymphocytes Fluid Monocytes Fl Pathologist Comment Fluid Glucose Fluid Total Protein Fluid LDH Fluid Comment 2 Miscellaneous Cytology Pending Blood Type Antibody Screen Crossmatch 11/26/17 15:04 WBC RBC Hgb Hct MCV MCH MCHC RDW RDW Differential Plt Count MPV Immature Gran % (Auto) Neut % (Auto) Lymph % (Auto) Pike % (Auto) Eos % (Auto) Baso % (Auto) Absolute Neuts (auto) Absolute Lymphs (auto) Total Counted Differential Comment Diff Path Review Platelet Estimate Hypochromasia Microcytosis PT INR APTT Sodium Potassium Chloride Carbon Dioxide Anion Gap BUN Creatinine Estim Creat Clear Calc Est GFR (MDRD) Af Amer Est GFR (MDRD) Non-Af BUN/Creatinine Ratio Glucose Calcium Iron 42 L TIBC 201 L Iron Saturation 20.9 Ferritin 1927 H Total Bilirubin AST ALT Alkaline Phosphatase Lactate Dehydrogenase Total Protein Albumin Globulin Albumin/Globulin Ratio Fluid Source Fluid Color Fluid Appearance Fluid WBC Fluid RBC Fluid Tot Cell Count Fld Polynuclear WBCs # Fld Polynuclear WBCs % Fluid Mononuclear WBCs Fld Mononuclear WBCs % Fluid Neutrophils Fluid Lymphocytes Fluid Monocytes Fl Pathologist Comment Fluid Glucose Fluid Total Protein Fluid LDH Fluid Comment 2 Miscellaneous Cytology Blood Type Antibody Screen Crossmatch - Other Studies Radiology: [] reviewed Other Studies: [] Route of nutrition/ use of supplements: [] Nutritional Intake: [] IV Site: [] Gutierrez Catheter: [] - Physical Exam General: Alert, Cooperative, - - ill appearing HEENT: Atraumatic, PERRLA, EOMI Neck: Supple, No Nodes Lungs: - - dull on R side Cardiovascular: Regular Rhythm, Tachycardic Abdomen: Soft, Non-Distended, Tender - mild R sided tenderness Extremities: No edema Skin: No rashes IV Site: Peripheral, without redness Musculoskeletal: No Tenderness to Palpation of Joints or Extremities Neurological: Cranial nerves II-XII grossly intact - Assessment/Plan Antibiotics: [] Assessment/Plan: [] Active and Suspected Problems (This Medical Record has been edited. Action required.) Pleural effusion (Acute) Hypoxemia (Acute) severe sepsis (lactic acidosis, leukocytosis, tachycardia, tachypnea) due to GNR bacteremia - will repeat bcx in AM. Had recent ureteral stents place. C/o some R sided abd pain. CT abd/pelvis showed only some mild hydro, no sign of abscess or diverticulitis. Lung is possible source. Cont empiric vanc/zosyn for now. Likely can stop vanc soon if no sign of MRSA. R pleural effusion with h/o cervical cancer - tap done today, fluid appears exudative with concern for parapneumonic effusion or empyema. Cytology pending. Cx pending. Pulm following. S.pneumo Ag was (+). Abx as above. Fluid glucose was low. CXR after procedure still showed white out, may need chest tube or VATS. Thank you, will follow.
[2017-11-27] VITALS (18 sets, daily range): BP systolic 130–147; BP diastolic 79–86; PULSE 74–121; RESP 16–30; TEMP 36.8–37; O2SAT 94–97
[2017-11-27] MEDS: Vancomycin IV 1,000 MG/200 ML BAG 200 MG IV (02:05)
[2017-11-27] MEDS: Ipratropium/Albuterol Sulfate 3 ML AMPUL.NEB INHALATION ×5 (04:18→23:22)
[2017-11-27] MEDS: Piperacil/Tazobactam 3.375 GM/50 ML ML IV (05:22)
--- NOTE | 2017-11-27 08:56 | PCM.RX.CS ---
Consult Pharmacy has been consulted to manage selected antiobiotic: Vancomycin Type of Consult: Follow-up Suspected Infection: Bacteremia Prior Doses of Antibiotics Received/Current Regimen: Currently on vancomycin 1000mg IV q12h with a dose administered on 11/26 at 15:18 and today 11/27 at 02:05. Labs: Sodium 139 mmol/L (136-145) 11/26/17 15:04 Potassium 3.0 mmol/L (3.5-5.1) L 11/26/17 15:04 Chloride 101 mmol/L (98-107) 11/26/17 15:04 Carbon Dioxide 24.0 mmol/L (21.0-32.0) 11/26/17 15:04 Anion Gap 14 (5-15) 11/26/17 15:04 BUN 19 mg/dL (7-18) H 11/26/17 15:04 Creatinine 0.66 mg/dL (0.55-1.02) 11/26/17 15:04 Est GFR (MDRD) Af Amer 128 mL/min (>60) 11/26/17 15:04 Est GFR (MDRD) Non-Af 106 mL/min (>60) 11/26/17 15:04 BUN/Creatinine Ratio 28.8 RATIO (10-20) H 11/26/17 15:04 Glucose 124 mg/dL (74-106) H 11/26/17 15:04 Vancomycin Trough 31.0 ug/mL (5.0-15.0) H 11/27/17 02:18 Microbiology: Microbiology 11/26/17 Unknown Sputum, Expectorated/Coughed Gram Stain - Final 11/25/17 18:50 Urine Catheter - Catheter Streptococcus pneumoniae Antigen (M - Final Streptococcus pneumonia Ag 11/25/17 18:50 Urine Catheter - Catheter Legionella Antigen - Final Goal Trough: 15-20 mcg/mL Pharmacy Plan for Drug Dosing: Trough drawn at 02:18 early this morning was 31 which is above goal range of 15-20. However, this trough was drawn about 15 minutes after the next dose was hung (02:05) and running, so we will need to repeat the trough before the next dose today to obtain an accurate value. Nursing is aware that we will need to get a proper trough this afternoon. Pharmacy Service will continue to monitor and adjust dosing as required. Follow-Up Labs: Trough Vancomycin Labs to be done on [date and time ordered]: 11/27/17 13:30
--- NOTE | 2017-11-27 09:03 | PHA.PHARE_ITS ---
Consult Pharmacy has been consulted to manage selected antiobiotic: Vancomycin Type of Consult: Follow-up Suspected Infection: Bacteremia Prior Doses of Antibiotics Received/Current Regimen: Currently on vancomycin 1000mg IV q12h with a dose administered on 11/26 at 15: 18 and today 11/27 at 02:05. Labs: Sodium 139 mmol/L (136-145) 11/26/17 15:04 Potassium 3.0 mmol/L (3.5-5.1) L 11/26/17 15:04 Chloride 101 mmol/L (98-107) 11/26/17 15:04 Carbon Dioxide 24.0 mmol/L (21.0-32.0) 11/26/17 15:04 Anion Gap 14 (5-15) 11/26/17 15:04 BUN 19 mg/dL (7-18) H 11/26/17 15:04 Creatinine 0.66 mg/dL (0.55-1.02) 11/26/17 15:04 Est GFR (MDRD) Af Amer 128 mL/min (>60) 11/26/17 15:04 Est GFR (MDRD) Non-Af 106 mL/min (>60) 11/26/17 15:04 BUN/Creatinine Ratio 28.8 RATIO (10-20) H 11/26/17 15:04 Glucose 124 mg/dL (74-106) H 11/26/17 15:04 Vancomycin Trough 31.0 ug/mL (5.0-15.0) H 11/27/17 02:18 Microbiology: Microbiology 11/26/17 Unknown Sputum, Expectorated/Coughed Gram Stain - Final 11/25/17 18:50 Urine Catheter - Catheter Streptococcus pneumoniae Antigen ( M - Final Streptococcus pneumonia Ag 11/25/17 18:50 Urine Catheter - Catheter Legionella Antigen - Final Goal Trough: 15-20 mcg/mL Pharmacy Plan for Drug Dosing: Trough drawn at 02:18 early this morning was 31 which is above goal range of 15- 20. However, this trough was drawn about 15 minutes after the next dose was hung (02:05) and running, so we will need to repeat the trough before the next dose today to obtain an accurate value. Nursing is aware that we will need to get a proper trough this afternoon. Pharmacy Service will continue to monitor and adjust dosing as required. Follow-Up Labs: Trough Vancomycin Labs to be done on [date and time ordered]: 11/27/17 13:30
[2017-11-27 09:16] LABS: Hemoglobin 8.3 g/dl (12.0-15.0); Mean Corp Hgb Conc 30.7 g/gl (32-36); Mean Corpuscular Hgb 25.3 pg (27.0-32.0); Mean Corpuscular Volume 82.3 fL (81-99); Mean Platelet Vol. 8.4 fl (6.2-12.0); Platelet Count 83 K/mm3 (150-450); RBC Distribution Width CV 19.1 % (11.6-14.6); RBC Distribution Width SD 55.1 fl (35.1-43.9); Red Blood Count 3.28 M/mm3 (4.2-5.4); White Blood Count 13.7 K/mm3 (4.4-11.0)
[2017-11-27 09:17] LABS: Differential Indicated MANUAL DIFF; POSITIVE COUNT YES; POSITIVE DIFFERENTIAL YES; POSITIVE MORPHOLOGY YES
[2017-11-27 09:39] LABS: BUN 15 mg/dL (7-18); Creatinine, Serum 0.54 mg/dL (0.55-1.02); Glucose 113 mg/dL (74-106)
[2017-11-27 09:40] LABS: ALB/GLOB Ratio 0.4 RATIO (0.9-2.4); AST(SGOT) 27 U/L (15-37); Alanine Aminotransfer ALT/SGPT 16 U/L (13-56); Alkaline Phosphatase 174 U/L (45-117); Anion Gap 8 (5-15); BUN/Creat Ratio 27.8 RATIO (10-20); Calcium,Total 9.1 mg/dL (8.5-10.1); Chloride 102 mmol/L (98-107); EST Glomerular Filtration Rate 133 mL/min (>60); Est Glom Filt Rate - Afr Amer 161 mL/min (>60); Globulin 4.5 g/dL (2.2-4.2); Potassium 2.8 mmol/L (3.5-5.1); Protein, Total 6.5 g/dL (6.4-8.2); Sodium Level 137 mmol/L (136-145)
[2017-11-27 09:45] LABS: Lymphocyte 1 % (19-41); Monocyte 5 % (0-10); Myelocyte 1 (0-0); Neutrophil-Segmented 93 % (47-70); Total Cells Counted 100 (MANUAL DIFF)
[2017-11-27 09:46] LABS: Anisocytosis 1+; Hypochromasia 2+; Platelet Estimate MOD DEC (ADEQ); Polychromasia RARE
[2017-11-27 09:47] LABS: Absolute Lymphocyte Count 0.14 X10^3/ul (0.83-4.51); Absolute Neutrophil Count 12.7 X10^3/uL (2.0-7.7)
[2017-11-27] MEDS: Sertraline 50 MG Tablet PO (10:09)
[2017-11-27] MEDS: guaiFENesin 1,200 MG Tablet 1200 MG PO ×2 (10:09→21:12)
[2017-11-27] MEDS: Senna Tablet 2 TABLET PO ×2 (10:09→21:12)
[2017-11-27] MEDS: Collagenase 30gm Tube 1 APPLIC TOPICAL (10:10)
--- NOTE | 2017-11-27 11:51 | PCM.PROGNOTE ---
Patient Problems: Active and Suspected Problems (This Medical Record has been edited. Action required.) Pleural effusion (Acute) Hypoxemia (Acute) Bacteremia due to Gram-negative bacteria (Acute) Subjective: Patient feels subjectively improved today compared to previous evaluation. Patient is still requiring a mild amount of oxygen. Patient denies any chest pain or drainage from the thoracentesis site. Objective: Called radiology and verified that 920 mL's of dacia colored fluid was removed. This did not appear to be pus from their evaluation. - Physical Exam General: Alert, Cooperative, No apparent distress, - - RASS -1. No accessory muscle use noted. HEENT: Atraumatic, PERRLA, EOMI, Normocephalic, - - No scleral icterus or injection noted. Oral: No Gingival or Mucosal Lesions/ Ulcerations, Dry Mucosa Neck: Supple, No JVD, No Nodes, Trachea Midline Lungs: No rhonchi, No wheeze, Diminished - Very little breath sounds on right chest, Rales - Right chest, - - Decreased expansion on the right Cardiovascular: Normal S1, Normal S2, No murmurs, No rub noted, No Gallop, Tachycardic Abdomen: Bowel Sounds Present, Soft, Non Tender, Non-Distended Extremities: No clubbing, No cyanosis, Capillary Refill Less than 3 Seconds, Edema Skin: No rashes, No breakdown Musculoskeletal: No Tenderness to Palpation of Joints or Extremities Lymphatic: No Cervical, Supraclavicular, or Inguinal Adenopathy Neurological: Cranial nerves II-XII grossly intact, Neuro grossly intact, Motor Exam 5/5 strength throughout Psych/Mental Status: Alert and oriented to time, place, person, mood and affect Vital Signs Temp Pulse Resp BP Pulse Ox 36.8 C 110 H 16 147/84 H 94 11/27/17 09:54 11/27/17 09:54 11/27/17 09:54 11/27/17 09:54 11/27/17 09:54 Oxygen Flow Rate (L/min) 2 Oxygen Delivery Method Nasal Cannula Weight: 74 kg Body Mass Index (BMI) 28.9 Intake and Output for Last 24 Hours 11/25/17 11/26/17 11/27/17 23:59 23:59 23:59 Intake Total 1275.4 / 1275.4 4108.6 / 4108.6 292.4 / 292.4 Output Total 600 / 600 2210 / 2210 300 / 300 Balance 675.4 / 675.4 1898.6 / 1898.6 -7.6 / -7.6 Microbiology Past 72 Hours 11/26/17 14:15 Body Fluid Culture - Preliminary Fluid - Thoracentesis Fluid GNR lactose mural artist 11/26/17 Unknown Gram Stain - Final Sputum, Expectorated/Coughed Respiratory Culture - Preliminary 11/25/17 18:50 Urine Culture - Preliminary Urine Catheter - Catheter Presumptive E. coli 11/25/17 18:50 Streptococcus pneumoniae Antigen (M - Final Urine Catheter - Catheter Streptococcus pneumonia Ag 11/25/17 18:50 Legionella Antigen - Final Urine Catheter - Catheter Laboratory Tests Past 24 Hrs 11/26/17 11/26/17 11/26/17 06:32 08:24 14:37 WBC RBC Hgb Hct MCV MCH MCHC RDW RDW Differential Plt Count MPV Neut % (Auto) Absolute Neuts (auto) Absolute Lymphs (auto) Total Counted Neutrophils % (Manual) Lymphocytes % (Manual) Monocytes % (Manual) Myelocytes % Diff Path Review Reviewed Platelet Estimate Polychromasia Hypochromasia Anisocytosis PT INR Sodium Potassium Chloride Carbon Dioxide Anion Gap BUN Creatinine Estim Creat Clear Calc Est GFR (MDRD) Af Amer Est GFR (MDRD) Non-Af BUN/Creatinine Ratio Glucose Calcium Magnesium Iron TIBC Iron Saturation Ferritin Total Bilirubin AST ALT Alkaline Phosphatase Total Protein Albumin Globulin Albumin/Globulin Ratio Fluid Source Fluid Color Fluid Appearance Fluid WBC Fluid RBC Fluid Tot Cell Count Fld Polynuclear WBCs # Fld Polynuclear WBCs % Fluid Mononuclear WBCs Fld Mononuclear WBCs % Fluid Neutrophils Fluid Lymphocytes Fluid Monocytes Fl Pathologist Comment Fluid Glucose 37 L Fluid Total Protein 4.1 Fluid LDH 887 Fluid Comment 2 Vancomycin Trough Miscellaneous Cytology Blood Type B POSITIVE Antibody Screen NEGATIVE Crossmatch See Detail 11/26/17 11/26/17 11/26/17 14:37 14:37 15:04 WBC RBC Hgb Hct MCV MCH MCHC RDW RDW Differential Plt Count MPV Neut % (Auto) Absolute Neuts (auto) Absolute Lymphs (auto) Total Counted Neutrophils % (Manual) Lymphocytes % (Manual) Monocytes % (Manual) Myelocytes % Diff Path Review Platelet Estimate Polychromasia Hypochromasia Anisocytosis PT INR Sodium 139 Potassium 3.0 L Chloride 101 Carbon Dioxide 24.0 Anion Gap 14 BUN 19 H Creatinine 0.66 Estim Creat Clear Calc 94.67 Est GFR (MDRD) Af Amer 128 Est GFR (MDRD) Non-Af 106 BUN/Creatinine Ratio 28.8 H Glucose 124 H Calcium 9.5 Magnesium Iron TIBC Iron Saturation Ferritin Total Bilirubin AST ALT Alkaline Phosphatase Total Protein Albumin Globulin Albumin/Globulin Ratio Fluid Source THORACENTESIS Fluid Color YELLOW Fluid Appearance CLOUDY Fluid WBC 1.480 Fluid RBC 0.88567 Fluid Tot Cell Count 1.488 H Fld Polynuclear WBCs # 1.054 Fld Polynuclear WBCs % 71.2 Fluid Mononuclear WBCs 0.426 Fld Mononuclear WBCs % 28.8 Fluid Neutrophils 64 Fluid Lymphocytes 30 Fluid Monocytes 6 Fl Pathologist Comment May follow Fluid Glucose Fluid Total Protein Fluid LDH Fluid Comment 2 SEE COMMENT Vancomycin Trough Miscellaneous Cytology Pending Blood Type Antibody Screen Crossmatch 11/26/17 11/26/17 11/27/17 15:04 15:04 02:18 WBC RBC Hgb Hct MCV MCH MCHC RDW RDW Differential Plt Count MPV Neut % (Auto) Absolute Neuts (auto) Absolute Lymphs (auto) Total Counted Neutrophils % (Manual) Lymphocytes % (Manual) Monocytes % (Manual) Myelocytes % Diff Path Review Platelet Estimate Polychromasia Hypochromasia Anisocytosis PT 18.5 H INR 1.5 Sodium Potassium Chloride Carbon Dioxide Anion Gap BUN Creatinine Estim Creat Clear Calc Est GFR (MDRD) Af Amer Est GFR (MDRD) Non-Af BUN/Creatinine Ratio Glucose Calcium Magnesium Iron 42 L TIBC 201 L Iron Saturation 20.9 Ferritin 1927 H Total Bilirubin AST ALT Alkaline Phosphatase Total Protein Albumin Globulin Albumin/Globulin Ratio Fluid Source Fluid Color Fluid Appearance Fluid WBC Fluid RBC Fluid Tot Cell Count Fld Polynuclear WBCs # Fld Polynuclear WBCs % Fluid Mononuclear WBCs Fld Mononuclear WBCs % Fluid Neutrophils Fluid Lymphocytes Fluid Monocytes Fl Pathologist Comment Fluid Glucose Fluid Total Protein Fluid LDH Fluid Comment 2 Vancomycin Trough 31.0 H Miscellaneous Cytology Blood Type Antibody Screen Crossmatch 11/27/17 11/27/17 11/27/17 08:56 08:56 08:56 WBC 13.7 H RBC 3.28 L Hgb 8.3 L Hct 27.0 L MCV 82.3 MCH 25.3 L MCHC 30.7 L RDW 19.1 H RDW Differential 55.1 H Plt Count 83 L MPV 8.4 Neut % (Auto) Not Reportable Absolute Neuts (auto) 12.7 H Absolute Lymphs (auto) 0.14 L Total Counted 100 Neutrophils % (Manual) 93 H Lymphocytes % (Manual) 1 L Monocytes % (Manual) 5 Myelocytes % 1 H Diff Path Review May foll Platelet Estimate MOD DEC Polychromasia RARE Hypochromasia 2+ Anisocytosis 1+ PT INR Sodium 137 Potassium 2.8 L Chloride 102 Carbon Dioxide 27.0 Anion Gap 8 BUN 15 Creatinine 0.54 L Estim Creat Clear Calc 115.70 Est GFR (MDRD) Af Amer 161 Est GFR (MDRD) Non-Af 133 BUN/Creatinine Ratio 27.8 H Glucose 113 H Calcium 9.1 Magnesium 2.0 Iron TIBC Iron Saturation Ferritin Total Bilirubin 1.00 AST 27 ALT 16 Alkaline Phosphatase 174 H Total Protein 6.5 Albumin 2.0 L Globulin 4.5 H Albumin/Globulin Ratio 0.4 L Fluid Source Fluid Color Fluid Appearance Fluid WBC Fluid RBC Fluid Tot Cell Count Fld Polynuclear WBCs # Fld Polynuclear WBCs % Fluid Mononuclear WBCs Fld Mononuclear WBCs % Fluid Neutrophils Fluid Lymphocytes Fluid Monocytes Fl Pathologist Comment Fluid Glucose Fluid Total Protein Fluid LDH Fluid Comment 2 Vancomycin Trough Miscellaneous Cytology Blood Type Antibody Screen Crossmatch Clinical Impression(s) from Imaging Studies Chest X-Ray 11/26/17 14:33 IMPRESSION: Status post right thoracentesis. There is no evidence pneumothorax. Persistent opacification of the right hemithorax. Electronically Signed: Sixto Shabazz MD at 15:12 EDT Tel [phone], Service support , Chest X-Ray 11/27/17 11:15 IMPRESSION: Complete opacification of the right hemithorax. This is unchanged. Electronically Signed: Sixto Shabazz MD at 11:41 EDT Tel [phone], Service support , Medical Necessity - Tobacco Use Smoking Status: Former smoker Tobacco Use: Non-smoker Assessment/Plan All Active Problems (This Medical Record has been edited. Action required.) Hydronephrosis, right (Acute) JENNI (acute kidney injury) (Acute) Hypokalemia (Acute) Pleural effusion (Acute) Hypoxemia (Acute) Bacteremia due to Gram-negative bacteria (Acute) JENNI (acute kidney injury) (Acute) RECOMMENDATIONS: 1. Consider transition to ceftriaxone 2. No chest tube at this time 3. Await diagnostic studies for pleural fluid 4. Wean oxygen as tolerated IMPRESSIONS: 1. Acute hypoxic respiratory insufficiency secondary to large right-sided pleural effusion Patient with multiple possible etiologies for large right-sided pleural effusion. Patient is growing multiple bacteria from various samples including Klebsiella from the blood and gram negatives in the pleural fluid. Glucose was decreased. Radiology did not believe this appears pus. Some concern with adding a large for chest tube as if this is a malignant pleural effusion this could be complicated moving forward. Patient could have a Pleurx catheter placed, but introduction of the long-term catheter in the setting of infected fluid could be complicated. If cytology positive and culture negative, Pleurx would be a viable option. If culture positive and cytology negative, transferred to a tertiary center for CT surgery evaluation would be appropriate. 2. Severe sepsis Patient with multiple possible sources of infection. Patient is pneumococcal antigen positive, but also has gram negatives growing in blood cultures already. Patient appears to be tolerating antibiotics well. No decrease in blood pressure at this time. Patient has been tachycardic, but this would be expected given burden of pleural effusion and multiple positive cultures. 3. Metastatic cervical cancer/history of obstructive uropathy/anemia Complicates care, management, recovery and prognosis. Patient hemoglobin of 6.8 this morning. Will transfuse packed red blood cells. No obvious signs of blood loss at this time. Patient has received cervical radiation, but no chemo at this time. Code Visit Inpatient E&M: 05804 [facility] Hosp L3
--- NOTE | 2017-11-27 12:00 | PCM.PN.ID ---
Patient Problems: Active and Suspected Problems (This Medical Record has been edited. Action required.) Pleural effusion (Acute) Hypoxemia (Acute) Bacteremia due to Gram-negative bacteria (Acute) Subjective: Feeling better, breathing easier since tap. Abd pain much improved, no fever. No n/v/d. - Physical Exam General: Alert, Cooperative, No apparent distress Lungs: Diminished - on R side Cardiovascular: Regular rate, Regular Rhythm Abdomen: Soft, Non Tender, Non-Distended Skin: No rashes Vital Signs Temp Pulse Resp BP Pulse Ox 98.2 F 110 H 16 147/84 H 94 11/27/17 09:54 11/27/17 09:54 11/27/17 09:54 11/27/17 09:54 11/27/17 09:54 Oxygen Flow Rate (L/min) 2 Oxygen Delivery Method Nasal Cannula Weight: 74 kg Body Mass Index (BMI) 28.9 Intake and Output for Last 24 Hours 11/25/17 11/26/17 11/27/17 23:59 23:59 23:59 Intake Total 1275.4 / 1275.4 4108.6 / 4108.6 292.4 / 292.4 Output Total 600 / 600 2210 / 2210 300 / 300 Balance 675.4 / 675.4 1898.6 / 1898.6 -7.6 / -7.6 Microbiology Past 72 Hours 11/26/17 14:15 Body Fluid Culture - Preliminary Fluid - Thoracentesis Fluid GNR lactose nuclear weapons mechanical specialist 11/26/17 Unknown Gram Stain - Final Sputum, Expectorated/Coughed Respiratory Culture - Preliminary 11/25/17 18:50 Urine Culture - Preliminary Urine Catheter - Catheter Presumptive E. coli 11/25/17 18:50 Streptococcus pneumoniae Antigen (M - Final Urine Catheter - Catheter Streptococcus pneumonia Ag 11/25/17 18:50 Legionella Antigen - Final Urine Catheter - Catheter Laboratory Tests Past 24 Hrs 11/26/17 11/26/17 11/26/17 06:32 08:24 14:37 WBC RBC Hgb Hct MCV MCH MCHC RDW RDW Differential Plt Count MPV Neut % (Auto) Absolute Neuts (auto) Absolute Lymphs (auto) Total Counted Neutrophils % (Manual) Lymphocytes % (Manual) Monocytes % (Manual) Myelocytes % Diff Path Review Reviewed Platelet Estimate Polychromasia Hypochromasia Anisocytosis PT INR Sodium Potassium Chloride Carbon Dioxide Anion Gap BUN Creatinine Estim Creat Clear Calc Est GFR (MDRD) Af Amer Est GFR (MDRD) Non-Af BUN/Creatinine Ratio Glucose Calcium Magnesium Iron TIBC Iron Saturation Ferritin Total Bilirubin AST ALT Alkaline Phosphatase Total Protein Albumin Globulin Albumin/Globulin Ratio Fluid Source Fluid Color Fluid Appearance Fluid WBC Fluid RBC Fluid Tot Cell Count Fld Polynuclear WBCs # Fld Polynuclear WBCs % Fluid Mononuclear WBCs Fld Mononuclear WBCs % Fluid Neutrophils Fluid Lymphocytes Fluid Monocytes Fl Pathologist Comment Fluid Glucose 37 L Fluid Total Protein 4.1 Fluid LDH 887 Fluid Comment 2 Vancomycin Trough Miscellaneous Cytology Blood Type B POSITIVE Antibody Screen NEGATIVE Crossmatch See Detail 11/26/17 11/26/17 11/26/17 14:37 14:37 15:04 WBC RBC Hgb Hct MCV MCH MCHC RDW RDW Differential Plt Count MPV Neut % (Auto) Absolute Neuts (auto) Absolute Lymphs (auto) Total Counted Neutrophils % (Manual) Lymphocytes % (Manual) Monocytes % (Manual) Myelocytes % Diff Path Review Platelet Estimate Polychromasia Hypochromasia Anisocytosis PT INR Sodium 139 Potassium 3.0 L Chloride 101 Carbon Dioxide 24.0 Anion Gap 14 BUN 19 H Creatinine 0.66 Estim Creat Clear Calc 94.67 Est GFR (MDRD) Af Amer 128 Est GFR (MDRD) Non-Af 106 BUN/Creatinine Ratio 28.8 H Glucose 124 H Calcium 9.5 Magnesium Iron TIBC Iron Saturation Ferritin Total Bilirubin AST ALT Alkaline Phosphatase Total Protein Albumin Globulin Albumin/Globulin Ratio Fluid Source THORACENTESIS Fluid Color YELLOW Fluid Appearance CLOUDY Fluid WBC 1.480 Fluid RBC 0.90213 Fluid Tot Cell Count 1.488 H Fld Polynuclear WBCs # 1.054 Fld Polynuclear WBCs % 71.2 Fluid Mononuclear WBCs 0.426 Fld Mononuclear WBCs % 28.8 Fluid Neutrophils 64 Fluid Lymphocytes 30 Fluid Monocytes 6 Fl Pathologist Comment May follow Fluid Glucose Fluid Total Protein Fluid LDH Fluid Comment 2 SEE COMMENT Vancomycin Trough Miscellaneous Cytology Pending Blood Type Antibody Screen Crossmatch 11/26/17 11/26/17 11/27/17 15:04 15:04 02:18 WBC RBC Hgb Hct MCV MCH MCHC RDW RDW Differential Plt Count MPV Neut % (Auto) Absolute Neuts (auto) Absolute Lymphs (auto) Total Counted Neutrophils % (Manual) Lymphocytes % (Manual) Monocytes % (Manual) Myelocytes % Diff Path Review Platelet Estimate Polychromasia Hypochromasia Anisocytosis PT 18.5 H INR 1.5 Sodium Potassium Chloride Carbon Dioxide Anion Gap BUN Creatinine Estim Creat Clear Calc Est GFR (MDRD) Af Amer Est GFR (MDRD) Non-Af BUN/Creatinine Ratio Glucose Calcium Magnesium Iron 42 L TIBC 201 L Iron Saturation 20.9 Ferritin 1927 H Total Bilirubin AST ALT Alkaline Phosphatase Total Protein Albumin Globulin Albumin/Globulin Ratio Fluid Source Fluid Color Fluid Appearance Fluid WBC Fluid RBC Fluid Tot Cell Count Fld Polynuclear WBCs # Fld Polynuclear WBCs % Fluid Mononuclear WBCs Fld Mononuclear WBCs % Fluid Neutrophils Fluid Lymphocytes Fluid Monocytes Fl Pathologist Comment Fluid Glucose Fluid Total Protein Fluid LDH Fluid Comment 2 Vancomycin Trough 31.0 H Miscellaneous Cytology Blood Type Antibody Screen Crossmatch 11/27/17 11/27/17 11/27/17 08:56 08:56 08:56 WBC 13.7 H RBC 3.28 L Hgb 8.3 L Hct 27.0 L MCV 82.3 MCH 25.3 L MCHC 30.7 L RDW 19.1 H RDW Differential 55.1 H Plt Count 83 L MPV 8.4 Neut % (Auto) Not Reportable Absolute Neuts (auto) 12.7 H Absolute Lymphs (auto) 0.14 L Total Counted 100 Neutrophils % (Manual) 93 H Lymphocytes % (Manual) 1 L Monocytes % (Manual) 5 Myelocytes % 1 H Diff Path Review May foll Platelet Estimate MOD DEC Polychromasia RARE Hypochromasia 2+ Anisocytosis 1+ PT INR Sodium 137 Potassium 2.8 L Chloride 102 Carbon Dioxide 27.0 Anion Gap 8 BUN 15 Creatinine 0.54 L Estim Creat Clear Calc 115.70 Est GFR (MDRD) Af Amer 161 Est GFR (MDRD) Non-Af 133 BUN/Creatinine Ratio 27.8 H Glucose 113 H Calcium 9.1 Magnesium 2.0 Iron TIBC Iron Saturation Ferritin Total Bilirubin 1.00 AST 27 ALT 16 Alkaline Phosphatase 174 H Total Protein 6.5 Albumin 2.0 L Globulin 4.5 H Albumin/Globulin Ratio 0.4 L Fluid Source Fluid Color Fluid Appearance Fluid WBC Fluid RBC Fluid Tot Cell Count Fld Polynuclear WBCs # Fld Polynuclear WBCs % Fluid Mononuclear WBCs Fld Mononuclear WBCs % Fluid Neutrophils Fluid Lymphocytes Fluid Monocytes Fl Pathologist Comment Fluid Glucose Fluid Total Protein Fluid LDH Fluid Comment 2 Vancomycin Trough Miscellaneous Cytology Blood Type Antibody Screen Crossmatch Medical Necessity - Tobacco Use Smoking Status: Former smoker Tobacco Use: Non-smoker Route of nutrition/ use of supplements: [] Nutritional Intake: [] IV Site: [] Gutierrez Catheter: [] - Assessment/Plan Antibiotics: [] Assessment/Plan: [] Active and Suspected Problems (This Medical Record has been edited. Action required.) Pleural effusion (Acute) Hypoxemia (Acute) severe sepsis (lactic acidosis, leukocytosis, tachycardia, tachypnea) due to klebs bacteremia - repeat bcx done this AM. Had recent ureteral stents place. C/o some R sided abd pain. CT abd/pelvis showed only some mild hydro, no sign of abscess or diverticulitis. Lung is likely source. Feeling much better this AM. Will narrow vanc/zosyn to ceftriaxone. R pleural effusion with h/o cervical cancer - tap done today, fluid appears exudative with concern for parapneumonic effusion or empyema. Cytology pending. Cx with GNR. Pulm following. S.pneumo Ag was (+). Abx as above. Fluid glucose was low. CXR after procedure still showed white out, will get repeat today. If infected fluid persists, would recommend chest tube or possible VATS, but this will likely depend as well on cytology results given risk of malignancy. ecoli complicated uti - (+) UA and Cx, covered by ceftriaxone. Susc pending. D/w Dr. Cat, will follow.
[2017-11-27] MEDS: Enoxaparin 40 MG/0.4 ML Syringe SC (12:17)
--- NOTE | 2017-11-27 12:37 | NURSING ---
MERI Gonsalves stated that she already changed dressing to sacrum. Santyl was applied as ordered. will continue to follow.
[2017-11-27 15:04] LABS: Pathologist Comment/Body Fluid Reviewed
--- NOTE | 2017-11-27 15:24 | CASEMGMT ---
MERI SANCHEZ NOTE: Pt resting in bed. Awake/alert/oriented. PT/OT eval completed and has been reviewed by MERI SANCHEZ. Discussion with pt re: HHC and pt is agreeable. Pt voices has no agency preference and is agreeable to [facility]. Referral made to [facility] @ [facility]. Porfirio TALAVERA RN CM
--- NOTE | 2017-11-27 16:03 | PCM.PN.HOSP ---
Patient Problems: Active and Suspected Problems (This Medical Record has been edited. Action required.) Pleural effusion (Acute) Hypoxemia (Acute) Bacteremia due to Gram-negative bacteria (Acute) Subjective: Patient was seen and examined. Feels better although still weak. Denies fever or chills or worsening SOB. Remains on 2L oxygen. Objective: Physical Exam General: Alert, Oriented x3, Cooperative, Lethargic, - - remains unwell, on 2L oxygen HEENT: Atraumatic, PERRLA, EOMI, Normocephalic Oral: Moist Mucosa Neck: Supple Lungs: Diminished - especially on right side of chest Cardiovascular: Regular rate, Regular Rhythm, Normal S1, Normal S2, No murmurs, Tachycardic Abdomen: Bowel Sounds Present, Soft, Non Tender, Non-Distended, No Hepato-splenomegaly Extremities: No edema Skin: No rashes, No breakdown Musculoskeletal: No Tenderness to Palpation of Joints or Extremities Lymphatic: No Cervical, Supraclavicular, or Inguinal Adenopathy Neurological: Cranial nerves II-XII grossly intact, Neuro grossly intact Psych/Mental Status: Normal Affect, Appropriate Vitals/I&O's: Vital Signs Temp Pulse Resp BP Pulse Ox 98.4 F 74 16 138/80 H 95 11/27/17 15:54 11/27/17 15:54 11/27/17 15:54 11/27/17 15:54 11/27/17 15:54 Oxygen Flow Rate (L/min) 2 Oxygen Delivery Method Room Air Weight: 74 kg Body Mass Index (BMI) 28.9 Intake and Output for Last 24 Hours 11/25/17 11/26/17 11/27/17 23:59 23:59 23:59 Intake Total 1275.4 / 1275.4 4108.6 / 4108.6 564.4 / 564.4 Output Total 600 / 600 2210 / 2210 700 / 700 Balance 675.4 / 675.4 1898.6 / 1898.6 -135.6 / -135.6 Microbiology Past 72 Hours 11/26/17 14:15 Fluid - Thoracentesis Fluid Gram Stain - Final 11/26/17 14:15 Fluid - Thoracentesis Fluid Body Fluid Culture - Preliminary GNR lactose cage/vault supervisor 11/26/17 Unknown Sputum, Expectorated/Coughed Gram Stain - Final 11/26/17 Unknown Sputum, Expectorated/Coughed Respiratory Culture - Preliminary 11/25/17 18:50 Urine Catheter - Catheter Urine Culture - Preliminary Presumptive E. coli 11/25/17 18:50 Urine Catheter - Catheter Streptococcus pneumoniae Antigen (M - Final Streptococcus pneumonia Ag 11/25/17 18:50 Urine Catheter - Catheter Legionella Antigen - Final Laboratory Results 11/26/17 08:24: Blood Type B POSITIVE, Antibody Screen NEGATIVE, Crossmatch See Detail 11/26/17 14:37: Fl Pathologist Comment Reviewed 11/26/17 15:04: Sodium 139, Potassium 3.0 L, Chloride 101, Carbon Dioxide 24.0, Anion Gap 14, BUN 19 H, Creatinine 0.66, Estim Creat Clear Calc 94.67, Est GFR (MDRD) Af Amer 128, Est GFR (MDRD) Non-Af 106, BUN/Creatinine Ratio 28.8 H, Glucose 124 H, Calcium 9.5 11/26/17 15:04: Iron 42 L, TIBC 201 L, Iron Saturation 20.9, Ferritin 1927 H 11/27/17 02:18: Vancomycin Trough 31.0 H 11/27/17 08:56: WBC 13.7 H, RBC 3.28 L, Hgb 8.3 L, Hct 27.0 L, MCV 82.3, MCH 25.3 L, MCHC 30.7 L, RDW 19.1 H, RDW Differential 55.1 H, Plt Count 83 L, MPV 8.4, Neut % (Auto) Not Reportable, Absolute Neuts (auto) 12.7 H, Absolute Lymphs (auto) 0.14 L, Total Counted 100, Neutrophils % (Manual) 93 H, Lymphocytes % (Manual) 1 L, Monocytes % (Manual) 5, Myelocytes % 1 H, Diff Path Review May foll, Platelet Estimate MOD DEC, Polychromasia RARE, Hypochromasia 2+, Anisocytosis 1+ 11/27/17 08:56: Sodium 137, Potassium 2.8 L, Chloride 102, Carbon Dioxide 27.0, Anion Gap 8, BUN 15, Creatinine 0.54 L, Estim Creat Clear Calc 115.70, Est GFR (MDRD) Af Amer 161, Est GFR (MDRD) Non-Af 133, BUN/Creatinine Ratio 27.8 H, Glucose 113 H, Calcium 9.1, Total Bilirubin 1.00, AST 27, ALT 16, Alkaline Phosphatase 174 H, Total Protein 6.5, Albumin 2.0 L, Globulin 4.5 H, Albumin/Globulin Ratio 0.4 L 11/27/17 08:56: Magnesium 2.0 Current Medications Acetaminophen (Tylenol) 650 mg PO Q4H PRN PRN PRN Reason: FEVER Albuterol/Ipratropium (Duoneb) 3 ml INHALATION Q4H.RT [facility] Last Admin: 11/27/17 14:14 Dose: 3 ml Collagenase (Santyl) 1 applic TOPICAL DAILY [facility] PRN Reason: Protocol Last Admin: 11/27/17 10:10 Dose: 1 applicatio Docusate Sodium (Colace) 200 mg PO BID PRN PRN PRN Reason: Constipation Enoxaparin Sodium (Lovenox) 40 mg SC DAILY [facility] Last Admin: 11/27/17 12:17 Dose: 40 mg Guaifenesin (Mucinex) 1,200 mg PO BID [facility] Last Admin: 11/27/17 10:09 Dose: 1,200 mg Ceftriaxone Sodium 2 gm/ (Dextrose) 50 mls @ 100 mls/hr IV Q24 [facility] Last Admin: 11/27/17 12:21 Dose: 100 mls/hr Melatonin (Melatonin) 3 mg PO QHS PRN PRN Reason: INSOMNIA Morphine Sulfate (Ms Contin) 30 mg PO QHS [facility] Last Admin: 11/26/17 21:45 Dose: 30 mg Morphine Sulfate () 1 mg IV Q4H PRN PRN PRN Reason: SEVERE PAIN (6-10/10) Last Admin: 11/25/17 22:12 Dose: 1 mg Nutritional Formula (Lactose Free) (Ensure Clear) 120 ml PO 4X/DAY [facility] Last Admin: 11/27/17 13:48 Dose: Not Given Ondansetron HCl (Zofran) 4 mg IV Q8H PRN PRN PRN Reason: NAUSEA Oxycodone HCl (Oxyir) 5 mg PO Q4H PRN PRN Reason: PAIN Last Admin: 11/26/17 16:51 Dose: 5 mg Senna (Senokot) 2 tablet PO BID [facility] Last Admin: 11/27/17 10:09 Dose: 2 tablet Sertraline HCl (Zoloft) 50 mg PO DAILY [facility] Last Admin: 08/22/18 10:09 Dose: 50 mg Sodium Chloride () 5 - 30 ml IV UD PRN PRN Reason: SALINE FLUSH Last Admin: 11/26/17 16:51 Dose: 10 ml Medical Necessity - Tobacco Use Smoking Status: Former smoker Tobacco Use: Non-smoker Assessment/Plan All Active Problems (This Medical Record has been edited. Action required.) Hydronephrosis, right (Acute) JENNI (acute kidney injury) (Acute) Hypokalemia (Acute) Pleural effusion (Acute) Hypoxemia (Acute) Bacteremia due to Gram-negative bacteria (Acute) JENNI (acute kidney injury) (Acute) 37 year old F with past medical history of metastatic cervical cancer, moderately invasive squamous cell carcinoma, status post chemotherapy and radiation therapy, bilateral hydronephrosis, status post bilateral ureteral stents, recently discharged on 10/22/2017 with acute kidney injury. 1. Acute hypoxic respiratory failure secondary to massive right pleural effusion, remains on 2 L of oxygen, continue to encourage use of incentive spirometer, breathing treatments as needed 2. 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 3. GNR severe sepsis secondary to presumed HCAP, Blood cultures growing gram-negative mallory, ID consulted, being managed on IV ceftriaxone 4. GNR bacteremia, on IV ceftriaxone, ID consulted 5. Metastatic cervical cancer, status post chemo and radiotherapy, following [facility] oncology in the outpatient 6. Complicated E. Coli UTI, history of obstructive uropathy, status post bilateral J stents, on IV ceftriaxone 7. Anemia, microcytic, microchromic, status post iron transfusions in the outpatient, Iron deficient, will hold off IV iron for now in light of current sepsis 8. Code Status - DNR CCA 9. DVT PPx- Lovenox SC Code Visit Inpatient E&M: 41709 Subs Hosp L2
[2017-11-27 17:55] LABS: Anion Gap 12 (5-15); BUN 14 mg/dL (7-18); BUN/Creat Ratio 21.8 RATIO (10-20); Calcium,Total 9.3 mg/dL (8.5-10.1); Chloride 102 mmol/L (98-107); Creatinine, Serum 0.64 mg/dL (0.55-1.02); EST Glomerular Filtration Rate 109 mL/min (>60); Est Glom Filt Rate - Afr Amer 132 mL/min (>60); Estimated Creatinine Clearance 97.62 ml/min; Glucose 125 mg/dL (74-106); Sodium Level 136 mmol/L (136-145)
[2017-11-28] VITALS (11 sets, daily range): BP systolic 138–152; BP diastolic 80–96; PULSE 105–138; RESP 16–28; TEMP 36.6–37.2; O2SAT 95–96
[2017-11-28] MEDS: Ipratropium/Albuterol Sulfate 3 ML AMPUL.NEB INHALATION ×3 (02:51→10:59)
[2017-11-28 06:44] LABS: Absolute Lymphocyte Count 0.76 X10^3/ul (0.83-4.51); Absolute Neutrophil Count 11.3 X10^3/uL (2.0-7.7); Basophil# 0.02 X10^3/uL; Basophil% 0.2 % (0-1); Lymphocyte # 0.76 X10^3/ul (4.0); Lymphocyte % 5.8 % (19-41); Mean Corpuscular Hgb 24.9 pg (27.0-32.0); Mean Corpuscular Volume 83.1 fL (81-99); Mean Platelet Vol. 8.6 fl (6.2-12.0); Monocyte# 0.77 X10^3/uL; Monocyte% 5.8 % (0-10); Neutrophil % 85.5 % (47-70); Platelet Count 88 K/mm3 (150-450); RBC Distribution Width CV 19.6 % (11.6-14.6); RBC Distribution Width SD 57.6 fl (35.1-43.9); Red Blood Count 3.61 M/mm3 (4.2-5.4); White Blood Count 13.2 K/mm3 (4.4-11.0)
[2017-11-28 06:49] LABS: POSITIVE DIFFERENTIAL NO
[2017-11-28 06:50] LABS: POSITIVE COUNT YES; POSITIVE MORPHOLOGY YES
[2017-11-28 06:54] LABS: Anion Gap 17 (5-15); BUN 13 mg/dL (7-18); BUN/Creat Ratio 24.3 RATIO (10-20); Calcium,Total 9.8 mg/dL (8.5-10.1); Chloride 98 mmol/L (98-107); Creatinine, Serum 0.53 mg/dL (0.55-1.02); EST Glomerular Filtration Rate 135 mL/min (>60); Est Glom Filt Rate - Afr Amer 163 mL/min (>60); Estimated Creatinine Clearance 117.89 ml/min; Glucose 118 mg/dL (74-106); Potassium 3.5 mmol/L (3.5-5.1); Sodium Level 137 mmol/L (136-145)
--- NOTE | 2017-11-28 07:22 | PCM.PN.HOSP ---
Patient Problems: Active and Suspected Problems (This Medical Record has been edited. Action required.) Pleural effusion (Acute) Hypoxemia (Acute) Bacteremia due to Gram-negative bacteria (Acute) Subjective: Patient was seen and examined. Denies any new complains. Feels better than when she was admitted. She has been tachycardic for the whole night. Denies fever or chills or chest pain or worsening SOB. Objective: Physical Exam General: Alert, Oriented x3, Cooperative, on 2L oxygen HEENT: Atraumatic, PERRLA, EOMI, Normocephalic Oral: Moist Mucosa Neck: Supple Lungs: Diminished generally, more in right hemithorax region Cardiovascular: Regular rate, Regular Rhythm, Normal S1, Normal S2, No murmurs, Tachycardic Abdomen: Bowel Sounds Present, Soft, Non Tender, Non-Distended, No Hepato-splenomegaly Extremities: No edema Skin: No rashes, No breakdown Musculoskeletal: No Tenderness to Palpation of Joints or Extremities Lymphatic: No Cervical, Supraclavicular, or Inguinal Adenopathy Neurological: Cranial nerves II-XII grossly intact, Neuro grossly intact Psych/Mental Status: Normal Affect, Appropriate Vitals/I&O's: Vital Signs Temp Pulse Resp BP Pulse Ox 98.1 F 129 H 28 H 146/96 H 95 11/28/17 02:16 11/28/17 03:00 11/28/17 02:51 11/28/17 02:16 11/28/17 02:18 Oxygen Flow Rate (L/min) 2 Oxygen Delivery Method Nasal Cannula Weight: 74 kg Body Mass Index (BMI) 28.9 Intake and Output for Last 24 Hours 11/26/17 11/27/17 11/28/17 23:59 23:59 23:59 Intake Total 4108.6 / 4108.6 1164.4 / 1164.4 100 / 100 Output Total 2210 / 2210 1000 / 1000 400 / 400 Balance 1898.6 / 1898.6 164.4 / 164.4 -300 / -300 Microbiology Past 72 Hours 11/26/17 14:15 Fluid - Thoracentesis Fluid Gram Stain - Final 11/26/17 14:15 Fluid - Thoracentesis Fluid Body Fluid Culture - Preliminary GNR lactose saw setter 11/26/17 Unknown Sputum, Expectorated/Coughed Gram Stain - Final 11/26/17 Unknown Sputum, Expectorated/Coughed Respiratory Culture - Preliminary 11/25/17 18:50 Urine Catheter - Catheter Urine Culture - Preliminary Presumptive E. coli 11/25/17 18:50 Urine Catheter - Catheter Streptococcus pneumoniae Antigen (M - Final Streptococcus pneumonia Ag 11/25/17 18:50 Urine Catheter - Catheter Legionella Antigen - Final Laboratory Results 11/26/17 14:37: Fl Pathologist Comment Reviewed 11/27/17 08:56: WBC 13.7 H, RBC 3.28 L, Hgb 8.3 L, Hct 27.0 L, MCV 82.3, MCH 25.3 L, MCHC 30.7 L, RDW 19.1 H, RDW Differential 55.1 H, Plt Count 83 L, MPV 8.4, Neut % (Auto) Not Reportable, Absolute Neuts (auto) 12.7 H, Absolute Lymphs (auto) 0.14 L, Total Counted 100, Neutrophils % (Manual) 93 H, Lymphocytes % (Manual) 1 L, Monocytes % (Manual) 5, Myelocytes % 1 H, Diff Path Review May foll, Platelet Estimate MOD DEC, Polychromasia RARE, Hypochromasia 2+, Anisocytosis 1+ 11/27/17 08:56: Sodium 137, Potassium 2.8 L, Chloride 102, Carbon Dioxide 27.0, Anion Gap 8, BUN 15, Creatinine 0.54 L, Estim Creat Clear Calc 115.70, Est GFR (MDRD) Af Amer 161, Est GFR (MDRD) Non-Af 133, BUN/Creatinine Ratio 27.8 H, Glucose 113 H, Calcium 9.1, Total Bilirubin 1.00, AST 27, ALT 16, Alkaline Phosphatase 174 H, Total Protein 6.5, Albumin 2.0 L, Globulin 4.5 H, Albumin/Globulin Ratio 0.4 L 11/27/17 08:56: Magnesium 2.0 11/27/17 17:10: Sodium 136, Potassium 4.0, Chloride 102, Carbon Dioxide 22.0, Anion Gap 12, BUN 14, Creatinine 0.64, Estim Creat Clear Calc 97.62, Est GFR (MDRD) Af Amer 132, Est GFR (MDRD) Non-Af 109, BUN/Creatinine Ratio 21.8 H, Glucose 125 H, Calcium 9.3 11/28/17 05:58: WBC 13.2 H, RBC 3.61 L, Hgb 9.0 L, Hct 30.0 L, MCV 83.1, MCH 24.9 L, MCHC 30.0 L, RDW 19.6 H, RDW Differential 57.6 H, Plt Count 88 L, MPV 8.6, Immature Gran % (Auto) 2.700 H, Neut % (Auto) 85.5 H, Lymph % (Auto) 5.8 L, [place] % (Auto) 5.8, Eos % (Auto) 0.0, Baso % (Auto) 0.2, Absolute Neuts (auto) 11.3 H, Absolute Lymphs (auto) 0.76 L, Total Counted Not Reportable, Diff Path Review August11/28/17 05:58: Sodium 137, Potassium 3.5, Chloride 98, Carbon Dioxide 22.0, Anion Gap 17 H, BUN 13, Creatinine 0.53 L, Estim Creat Clear Calc 117.89, Est GFR (MDRD) Af Amer 163, Est GFR (MDRD) Non-Af 135, BUN/Creatinine Ratio 24.3 H, Glucose 118 H, Calcium 9.8 Current Medications Acetaminophen (Tylenol) 650 mg PO Q4H PRN PRN PRN Reason: FEVER Albuterol/Ipratropium (Duoneb) 3 ml INHALATION Q4H.RT [facility] Last Admin: 11/28/17 06:58 Dose: 3 ml Collagenase (Santyl) 1 applic TOPICAL DAILY [facility] PRN Reason: Protocol Last Admin: 11/27/17 10:10 Dose: 1 applicatio Docusate Sodium (Colace) 200 mg PO BID PRN PRN PRN Reason: Constipation Enoxaparin Sodium (Lovenox) 40 mg SC DAILY [facility] Last Admin: 11/27/17 12:17 Dose: 40 mg Guaifenesin (Mucinex) 1,200 mg PO BID [facility] Last Admin: 11/27/17 21:12 Dose: 1,200 mg Ceftriaxone Sodium 2 gm/ (Dextrose) 50 mls @ 100 mls/hr IV Q24 [facility] Last Admin: 11/27/17 12:21 Dose: 100 mls/hr Melatonin (Melatonin) 3 mg PO QHS PRN PRN Reason: INSOMNIA Morphine Sulfate (Ms Contin) 30 mg PO QHS [facility] Last Admin: 11/27/17 21:12 Dose: 30 mg Morphine Sulfate () 1 mg IV Q4H PRN PRN PRN Reason: SEVERE PAIN (6-10/10) Last Admin: 11/25/17 22:12 Dose: 1 mg Nutritional Formula (Lactose Free) (Ensure Clear) 120 ml PO 4X/DAY [facility] Last Admin: 11/27/17 21:12 Dose: Not Given Ondansetron HCl (Zofran) 4 mg IV Q8H PRN PRN PRN Reason: NAUSEA Oxycodone HCl (Oxyir) 5 mg PO Q4H PRN PRN Reason: PAIN Last Admin: 11/26/17 16:51 Dose: 5 mg Senna (Senokot) 2 tablet PO BID [facility] Last Admin: 11/27/17 21:12 Dose: 2 tablet Sertraline HCl (Zoloft) 50 mg PO DAILY [facility] Last Admin: 11/27/17 10:09 Dose: 50 mg Sodium Chloride () 5 - 30 ml IV UD PRN PRN Reason: SALINE FLUSH Last Admin: 11/26/17 16:51 Dose: 10 ml Medical Necessity - Tobacco Use Smoking Status: Former smoker Tobacco Use: Non-smoker Assessment/Plan All Active Problems (This Medical Record has been edited. Action required.) Hydronephrosis, right (Acute) JENNI (acute kidney injury) (Acute) Hypokalemia (Acute) Pleural effusion (Acute) Hypoxemia (Acute) Bacteremia due to Gram-negative bacteria (Acute) JENNI (acute kidney injury) (Acute) 37 year old F with past medical history of metastatic cervical cancer, moderately invasive squamous cell carcinoma, status post chemotherapy and radiation therapy, bilateral hydronephrosis, status post bilateral ureteral stents, recently discharged on 10/22/2017 with acute kidney injury. 1. Acute hypoxic respiratory failure secondary to massive right pleural effusion, remains on 2 L of oxygen, continue to encourage use of incentive spirometer, breathing treatments as needed 2. 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 3. GNR severe sepsis secondary to presumed HCAP, Blood cultures growing gram-negative mallory, ID consulted, being managed on IV ceftriaxone 4. GNR bacteremia, on IV ceftriaxone, ID consulted 5. Metastatic cervical cancer, status post chemo and radiotherapy, following [employer] oncology in the outpatient 6. Complicated E. Coli UTI, history of obstructive uropathy, status post bilateral J stents, on IV ceftriaxone 7. Anemia, microcytic, microchromic, status post iron transfusions in the outpatient, Iron deficient, will hold off IV iron for now in light of current sepsis 8. Code Status - DNR CCA 9. DVT PPx- Lovenox SC Code Visit Inpatient E&M: 89080 Subs Hosp L2
--- NOTE | 2017-11-28 10:03 | CASEMGMT ---
Addendum entered by Janelle Oropeza 11/28/17 10:20: [facility] is also in network. Gilson JEREZ CM Original Note: According to [employer] website, the following are in-network tertiary facilities: [facility], [facility], [facility], [facility], and . Gilson JEREZ CM
[2017-11-28] MEDS: Enoxaparin 40 MG/0.4 ML Syringe SC (10:19)
[2017-11-28] MEDS: Senna Tablet 2 TABLET PO (10:20)
[2017-11-28] MEDS: Sertraline 50 MG Tablet PO (10:20)
[2017-11-28] MEDS: Collagenase 30gm Tube 1 APPLIC TOPICAL (10:20)
[2017-11-28] MEDS: guaiFENesin 1,200 MG Tablet 1200 MG PO (10:20)
--- NOTE | 2017-11-28 10:25 | PCM.PROGNOTE ---
Patient Problems: Active and Suspected Problems (This Medical Record has been edited. Action required.) Pleural effusion (Acute) Hypoxemia (Acute) Bacteremia due to Gram-negative bacteria (Acute) Subjective: Patient did okay overnight. Patient denies any current chest pain, but feels her dyspnea is somewhat unchanged compared to previous. Did have a royer discussion with patient about the bacteria growing in her chest. After questioning of the aggressiveness that she would find appropriate, patient has elected to be transferred for a cardiothoracic evaluation. Patient denies any nausea at this time. Patient remains on minimal nasal cannula oxygen. Patient has had significant tachycardia throughout the evening, but this appears to be getting worse this morning. - Physical Exam General: Alert, Oriented x3, Cooperative, No apparent distress, - - Speaking in a soft voice, but full sentences. Appears older than stated age. HEENT: Atraumatic, PERRLA, EOMI, Normocephalic, - - No scleral icterus or injection noted. Oral: Moist Mucosa, No Gingival or Mucosal Lesions/ Ulcerations Neck: Supple, No JVD, No Nodes, Trachea Midline Lungs: No rhonchi, No wheeze, No rales, Diminished - Little to no air movement noted in the right chest, - - Decreased expansion of the right chest Cardiovascular: Normal S1, Normal S2, No murmurs, No rub noted, No Gallop, Tachycardic Abdomen: Bowel Sounds Present, Soft, Non Tender, Non-Distended Extremities: No clubbing, No cyanosis, No edema Skin: - - Grossly unchanged compared to previous Musculoskeletal: No Tenderness to Palpation of Joints or Extremities Lymphatic: No Cervical, Supraclavicular, or Inguinal Adenopathy Neurological: Cranial nerves II-XII grossly intact, Neuro grossly intact, - - Global weakness of all extremities noted Psych/Mental Status: Alert and oriented to time, place, person, mood and affect Vital Signs Temp Pulse Resp BP Pulse Ox 37.2 C 133 H 18 148/89 H 96 11/28/17 08:44 11/28/17 08:44 11/28/17 08:44 11/28/17 08:44 11/28/17 08:44 Oxygen Flow Rate (L/min) 3 Oxygen Delivery Method Nasal Cannula Weight: 74 kg Body Mass Index (BMI) 28.9 Intake and Output for Last 24 Hours 11/26/17 11/27/17 11/28/17 23:59 23:59 23:59 Intake Total 4108.6 / 4108.6 1164.4 / 1164.4 100 / 100 Output Total 2210 / 2210 1000 / 1000 400 / 400 Balance 1898.6 / 1898.6 164.4 / 164.4 -300 / -300 Microbiology Past 72 Hours 11/26/17 14:15 Gram Stain - Final Fluid - Thoracentesis Fluid Body Fluid Culture - Final Klebsiella pneumoniae sp pneum 11/26/17 Unknown Gram Stain - Final Sputum, Expectorated/Coughed Respiratory Culture - Final Presumptive C albicans Streptococcus group F 11/25/17 18:50 Urine Culture - Final Urine Catheter - Catheter Presumptive E. coli 11/25/17 18:50 Streptococcus pneumoniae Antigen (M - Final Urine Catheter - Catheter Streptococcus pneumonia Ag 11/25/17 18:50 Legionella Antigen - Final Urine Catheter - Catheter Laboratory Tests Past 24 Hrs 11/26/17 11/27/17 11/27/17 14:37 08:56 17:10 WBC RBC Hgb Hct MCV MCH MCHC RDW RDW Differential Plt Count MPV Immature Gran % (Auto) Neut % (Auto) Lymph % (Auto) Rhea % (Auto) Eos % (Auto) Baso % (Auto) Absolute Neuts (auto) Absolute Lymphs (auto) Total Counted Diff Path Review Sodium 136 Potassium 4.0 Chloride 102 Carbon Dioxide 22.0 Anion Gap 12 BUN 14 Creatinine 0.64 Estim Creat Clear Calc 97.62 Est GFR (MDRD) Af Amer 132 Est GFR (MDRD) Non-Af 109 BUN/Creatinine Ratio 21.8 H Glucose 125 H Calcium 9.3 Magnesium 2.0 Fl Pathologist Comment Reviewed 11/28/17 11/28/17 05:58 05:58 WBC 13.2 H RBC 3.61 L Hgb 9.0 L Hct 30.0 L MCV 83.1 MCH 24.9 L MCHC 30.0 L RDW 19.6 H RDW Differential 57.6 H Plt Count 88 L MPV 8.6 Immature Gran % (Auto) 2.700 H Neut % (Auto) 85.5 H Lymph % (Auto) 5.8 L Rhea % (Auto) 5.8 Eos % (Auto) 0.0 Baso % (Auto) 0.2 Absolute Neuts (auto) 11.3 H Absolute Lymphs (auto) 0.76 L Total Counted Not Reportable Diff Path Review May foll Sodium 137 Potassium 3.5 Chloride 98 Carbon Dioxide 22.0 Anion Gap 17 H BUN 13 Creatinine 0.53 L Estim Creat Clear Calc 117.89 Est GFR (MDRD) Af Amer 163 Est GFR (MDRD) Non-Af 135 BUN/Creatinine Ratio 24.3 H Glucose 118 H Calcium 9.8 Magnesium Fl Pathologist Comment Clinical Impression(s) from Imaging Studies Thoracentesis Ultrasound 11/26/17 07:00 IMPRESSION: Ultrasound-guided right thoracentesis. Electronically Signed: Sixto Shabazz MD at 14:56 EDT Tel [phone], Service support , ADDENDUM: 11/27/17 1355 IMPRESSION: Ultrasound-guided right thoracentesis. Electronically Signed: Sixto Shabazz MD at 14:56 EDT Tel [phone], Service support , Chest X-Ray 11/27/17 11:15 IMPRESSION: Complete opacification of the right hemithorax. This is unchanged. Electronically Signed: Sixto Shabazz MD at 11:41 EDT Tel [phone], Service support , Medical Necessity - Tobacco Use Smoking Status: Former smoker Tobacco Use: Non-smoker Assessment/Plan All Active Problems (This Medical Record has been edited. Action required.) Hydronephrosis, right (Acute) JENNI (acute kidney injury) (Acute) Hypokalemia (Acute) Pleural effusion (Acute) Hypoxemia (Acute) Bacteremia due to Gram-negative bacteria (Acute) JENNI (acute kidney injury) (Acute) RECOMMENDATIONS: 1. Consider transition to ceftriaxone 2. Consider transfer to a tertiary center for cardiothoracic evaluation 3. Await diagnostic studies for pleural fluid 4. Wean oxygen as tolerated IMPRESSIONS: 1. Acute hypoxic respiratory insufficiency secondary to large right-sided pleural effusion Patient with multiple possible etiologies for large right-sided pleural effusion. Patient is growing multiple bacteria from various samples including Klebsiella from the blood and gram negatives in the pleural fluid. Glucose was decreased. Radiology did not believe this appears pus. Given patient having growth of bacteria from the pleural space, evaluation with VATS would be appropriate. Patient does not appear to be overly septic, but this may be secondary to decreased immune system function given ongoing malignancy. 2. Severe sepsis Patient with multiple possible sources of infection. Patient is pneumococcal antigen positive, but also has Klebsiella growing in blood cultures and now pleural fluid. Patient appears to be tolerating antibiotics well. No decrease in blood pressure at this time. Patient has been tachycardic, but this would be expected given burden of pleural effusion and multiple positive cultures. 3. Metastatic cervical cancer/history of obstructive uropathy/anemia Complicates care, management, recovery and prognosis. Patient hemoglobin of 9 this morning. Will transfuse packed red blood cells. No obvious signs of blood loss at this time. Patient has received cervical radiation, but no chemo at this time. Code Visit Inpatient E&M: [id number] [facility] Hosp L3
--- NOTE | 2017-11-28 10:30 | PN_ITS ---
Patient Problems: Active and Suspected Problems (This Medical Record has been edited. Action required.) Pleural effusion (Acute) Hypoxemia (Acute) Bacteremia due to Gram-negative bacteria (Acute) Subjective: Patient did okay overnight. Patient denies any current chest pain, but feels her dyspnea is somewhat unchanged compared to previous. Did have a royer discussion with patient about the bacteria growing in her chest. After questioning of the aggressiveness that she would find appropriate, patient has elected to be transferred for a cardiothoracic evaluation. Patient denies any nausea at this time. Patient remains on minimal nasal cannula oxygen. Patient has had significant tachycardia throughout the evening, but this appears to be getting worse this morning. - Physical Exam General: Alert, Oriented x3, Cooperative, No apparent distress, - - Speaking in a soft voice, but full sentences. Appears older than stated age. HEENT: Atraumatic, PERRLA, EOMI, Normocephalic, - - No scleral icterus or injection noted. Oral: Moist Mucosa, No Gingival or Mucosal Lesions/ Ulcerations Neck: Supple, No JVD, No Nodes, Trachea Midline Lungs: No rhonchi, No wheeze, No rales, Diminished - Little to no air movement noted in the right chest, - - Decreased expansion of the right chest Cardiovascular: Normal S1, Normal S2, No murmurs, No rub noted, No Gallop, Tachycardic Abdomen: Bowel Sounds Present, Soft, Non Tender, Non-Distended Extremities: No clubbing, No cyanosis, No edema Skin: - - Grossly unchanged compared to previous Musculoskeletal: No Tenderness to Palpation of Joints or Extremities Lymphatic: No Cervical, Supraclavicular, or Inguinal Adenopathy Neurological: Cranial nerves II-XII grossly intact, Neuro grossly intact, - - Global weakness of all extremities noted Psych/Mental Status: Alert and oriented to time, place, person, mood and affect Vital Signs Temp Pulse Resp BP Pulse Ox 37.2 C 133 H 18 148/89 H 96 11/28/17 08:44 11/28/17 08:44 11/28/17 08:44 11/28/17 08:44 11/28/17 08:44 Oxygen Flow Rate (L/min) 3 Oxygen Delivery Method Nasal Cannula Weight: 74 kg Body Mass Index (BMI) 28.9 Intake and Output for Last 24 Hours 11/26/17 11/27/17 11/28/17 23:59 23:59 23:59 Intake Total 4108.6 / 4108.6 1164.4 / 1164.4 100 / 100 Output Total 2210 / 2210 1000 / 1000 400 / 400 Balance 1898.6 / 1898.6 164.4 / 164.4 -300 / -300 Microbiology Past 72 Hours 11/26/17 14:15 Gram Stain - Final Fluid - Thoracentesis Fluid Body Fluid Culture - Final Klebsiella pneumoniae sp pneum 11/26/17 Unknown Gram Stain - Final Sputum, Expectorated/Coughed Respiratory Culture - Final Presumptive C albicans Streptococcus group F 11/25/17 18:50 Urine Culture - Final Urine Catheter - Catheter Presumptive E. coli 11/25/17 18:50 Streptococcus pneumoniae Antigen (M - Final Urine Catheter - Catheter Streptococcus pneumonia Ag 11/25/17 18:50 Legionella Antigen - Final Urine Catheter - Catheter Laboratory Tests Past 24 Hrs 11/26/17 11/27/17 11/27/17 14:37 08:56 17:10 WBC RBC Hgb Hct MCV MCH MCHC RDW RDW Differential Plt Count MPV Immature Gran % (Auto) Neut % (Auto) Lymph % (Auto) Grimes % (Auto) Eos % (Auto) Baso % (Auto) Absolute Neuts (auto) Absolute Lymphs (auto) Total Counted Diff Path Review Sodium 136 Potassium 4.0 Chloride 102 Carbon Dioxide 22.0 Anion Gap 12 BUN 14 Creatinine 0.64 Estim Creat Clear Calc 97.62 Est GFR (MDRD) Af Amer 132 Est GFR (MDRD) Non-Af 109 BUN/Creatinine Ratio 21.8 H Glucose 125 H Calcium 9.3 Magnesium 2.0 Fl Pathologist Comment Reviewed 11/28/17 11/28/17 05:58 05:58 WBC 13.2 H RBC 3.61 L Hgb 9.0 L Hct 30.0 L MCV 83.1 MCH 24.9 L MCHC 30.0 L RDW 19.6 H RDW Differential 57.6 H Plt Count 88 L MPV 8.6 Immature Gran % (Auto) 2.700 H Neut % (Auto) 85.5 H Lymph % (Auto) 5.8 L Grimes % (Auto) 5.8 Eos % (Auto) 0.0 Baso % (Auto) 0.2 Absolute Neuts (auto) 11.3 H Absolute Lymphs (auto) 0.76 L Total Counted Not Reportable Diff Path Review May foll Sodium 137 Potassium 3.5 Chloride 98 Carbon Dioxide 22.0 Anion Gap 17 H BUN 13 Creatinine 0.53 L Estim Creat Clear Calc 117.89 Est GFR (MDRD) Af Amer 163 Est GFR (MDRD) Non-Af 135 BUN/Creatinine Ratio 24.3 H Glucose 118 H Calcium 9.8 Magnesium Fl Pathologist Comment Clinical Impression(s) from Imaging Studies Thoracentesis Ultrasound 11/26/17 07:00 IMPRESSION: Ultrasound-guided right thoracentesis. Electronically Signed: Sixto Shabazz MD at 14:56 EDT Tel [phone], Service support , ADDENDUM: 11/27/17 1355 IMPRESSION: Ultrasound-guided right thoracentesis. Electronically Signed: Sixto Shabazz MD at 14:56 EDT Tel [phone], Service support , Chest X-Ray 11/27/17 11:15 IMPRESSION: Complete opacification of the right hemithorax. This is unchanged. Electronically Signed: Sixot Shabazz MD at 11:41 EDT Tel [phone], Service support , Medical Necessity - Tobacco Use Smoking Status: Former smoker Tobacco Use: Non-smoker Assessment/Plan All Active Problems (This Medical Record has been edited. Action required.) Hydronephrosis, right (Acute) JENNI (acute kidney injury) (Acute) Hypokalemia (Acute) Pleural effusion (Acute) Hypoxemia (Acute) Bacteremia due to Gram-negative bacteria (Acute) JENNI (acute kidney injury) (Acute) RECOMMENDATIONS: 1. Consider transition to ceftriaxone 2. Consider transfer to a tertiary center for cardiothoracic evaluation 3. Await diagnostic studies for pleural fluid 4. Wean oxygen as tolerated IMPRESSIONS: 1. Acute hypoxic respiratory insufficiency secondary to large right-sided pleural effusion Patient with multiple possible etiologies for large right-sided pleural effusion. Patient is growing multiple bacteria from various samples including Klebsiella from the blood and gram negatives in the pleural fluid. Glucose was decreased. Radiology did not believe this appears pus. Given patient having growth of bacteria from the pleural space, evaluation with VATS would be appropriate. Patient does not appear to be overly septic, but this may be secondary to decreased immune system function given ongoing malignancy. 2. Severe sepsis Patient with multiple possible sources of infection. Patient is pneumococcal antigen positive, but also has Klebsiella growing in blood cultures and now pleural fluid. Patient appears to be tolerating antibiotics well. No decrease in blood pressure at this time. Patient has been tachycardic , but this would be expected given burden of pleural effusion and multiple positive cultures. 3. Metastatic cervical cancer/history of obstructive uropathy/anemia Complicates care, management, recovery and prognosis. Patient hemoglobin of 9 this morning. Will transfuse packed red blood cells. No obvious signs of blood loss at this time. Patient has received cervical radiation, but no chemo at this time. Code Visit Inpatient E&M: 43449 [facility] Hosp L3
--- NOTE | 2017-11-28 10:32 | PCM.DC ---
- Discharge Diagnoses Current Active Problems: Current Active and Chronic Problems (This Medical Record has been edited. Action required.) Pleural effusion (Acute) Hypoxemia (Acute) Bacteremia due to Gram-negative bacteria (Acute) Reason(s) for Visit for Discharge Instructions: Shortness of breath You will use the following diet at home:: Regular Your food should be the consistency of: Regular Discharge Activity: Return to Normal Activity Allergies/Adverse Reactions: Allergies No Known Allergies Allergy (Verified 11/25/17 10:56) Medications to take at Discharge Morphine Sulfate [Morphine Sulfate ER] 30 mg PO QHS 10/20/17 Ondansetron [Zofran Odt] 4 mg PO Q6H PRN 10/20/17 Oxycodone HCl/Acetaminophen [Percocet 5-325] 1 tablet PO Q4H PRN PRN 10/20/17 Sennosides [Senna Laxative] 2 tab PO BID 10/20/17 Sertraline HCl [Zoloft] 50 mg PO DAILY 10/20/17 Primary Care Physician: Merly Rahman DO [Primary Care Provider] - Please follow up with your Primary Care Physician in: within 2 weeks of discharge Test Results: Test results from this visit will be discussed in further detail at your follow-up appointment, if applicable. Please Follow Up With: Merly Rahman DO Please Follow Up With: Reji Diop DO When: within 2 weeks of discharge Proposed Discharge Date: 11/28/17
[2017-11-28 10:50] LABS: Pathologist Review Reviewed
[2017-11-28 10:56] LABS: Pathologist Review Reviewed
--- NOTE | 2017-11-28 11:02 | PCM.DC.SUM ---
Discharge Date and Diagnosis Date of Admission: 11/25/17 Date of Discharge: 11/28/17 - Primary Discharge Diagnosis Active and Suspected Problems (This Medical Record has been edited. Action required.) Pleural effusion (Acute) Hypoxemia (Acute) Bacteremia due to Gram-negative bacteria (Acute) - Secondary Discharge Diagnosis Chronic Problems (This Medical Record has been edited. Action required.) Pelvic mass (Chronic) Cervical cancer (Chronic) HCAP (healthcare-associated pneumonia) (Chronic) Hospital Course and Treatment Imaging Results: Clinical Impression(s) from Imaging Studies Abdomen/Pelvis CT 11/25/17 12:33 IMPRESSION: Moderate to large sized right pleural effusion with collapse of the right lower lobe. Small left pleural effusion with atelectasis and nodular densities at the left lung base. Mild right hydronephrosis. Bilateral double-J stent catheters in situ. Electronically Signed: Sixto Shabazz MD at 13:48 EDT Tel [phone], Service support , Chest CT 11/25/17 12:58 IMPRESSION: Large right pleural effusion with volume loss and collapse of the right lung. Small left pleural effusion with multiple left lung nodules. Findings suggest bony metastasis. Electronically Signed: Sixto Shabazz MD at 13:53 EDT Tel [phone], Service support , Thoracentesis Ultrasound 11/26/17 07:00 IMPRESSION: Ultrasound-guided right thoracentesis. Electronically Signed: Sixto Shabazz MD at 14:56 EDT Tel [phone], Service support , ADDENDUM: 11/27/17 1355 IMPRESSION: Ultrasound-guided right thoracentesis. Electronically Signed: Sixto Shabazz MD at 14:56 EDT Tel [phone], Service support , Chest X-Ray 11/26/17 14:33 IMPRESSION: Status post right thoracentesis. There is no evidence pneumothorax. Persistent opacification of the right hemithorax. Electronically Signed: Sixto Shabazz MD at 15:12 EDT Tel [phone], Service support , Chest X-Ray 11/27/17 11:15 IMPRESSION: Complete opacification of the right hemithorax. This is unchanged. Electronically Signed: Sixto Shabazz MD at 11:41 EDT Tel [phone], Service support , Consultations 11/25/17 16:04 Consult: Onc/Wound/fire alarm mechanic Routine Comment: 11/25/17 21:16 Consult: Onc/Wound/fire alarm mechanic Routine Comment: Operations: None Procedures: Thoracentesis Summary of Care Provided: 37 year old F with past medical history of metastatic cervical cancer, moderately invasive squamous cell carcinoma, status post radiation therapy, bilateral hydronephrosis, status post bilateral ureteral stents, recently discharged on 10/22/2017 with acute kidney injury. Since her last discharge, patient had had several cycles of radiation therapy. She had been reportedly feeling weak and fatigued and has been lying in her recliner. She denied fever or chills or chest pain on admission. She had complained of a right upper abdominal and flank pain as well as orthopnea and shortness of breath on exertion and at rest with cough but no sputum production. She was seen in the ED, her blood pressure was stable, heart rate was 144. Admitting white cell count was 20.4, hemoglobin was 8.5, platelets was 133, lactic acid was 2.4. CT scan of abdomen and pelvis showed moderate-large size pleural effusion with collapse of right lung, which was confirmed by Chest CT. She was managed as severe sepsis secondary to presumed HCAP. Blood cultures drawn in the ED grew Klebsiella pneumoniae. Urine streptococcal antigen was also positive. Sputum cultures grew streptococcus and C. albicans. She underwent ultrasound guided thoracocentesis and cultures and by Light's criteria, it was exudative. Pleural aspirate cultures showed Klebsiella pneumonia. Managed initially on IV vancomycin and Zosyn. ID and Pulmo consulted. Switched to IV ceftriaxone. Patient was referred to [facility] for possible VATS. Discharge Diet: Low fat/ Low Cholesterol, 2000 mg Sodium Diet Discharge Activity: Return to Normal Activity Home Medications: Medications to take at Discharge Morphine Sulfate [Morphine Sulfate ER] 30 mg PO QHS 10/20/17 Ondansetron [Zofran Odt] 4 mg PO Q6H PRN 10/20/17 Oxycodone HCl/Acetaminophen [Percocet 5-325] 1 tablet PO Q4H PRN PRN 10/20/17 Sennosides [Senna Laxative] 2 tab PO BID 10/20/17 Sertraline HCl [Zoloft] 50 mg PO DAILY 10/20/17 Primary Care Physician: Merly Rahman DO [Primary Care Provider] - Please follow up with your Primary Care Physician in: within 2 weeks of discharge Please Follow Up With: Merly Rahman DO Please Follow Up With: Reji Diop DO When: within 2 weeks of discharge Disposition: Acute care Hospital Minutes spent on discharge:: 50 Patient Condition:: Stable Medical Necessity - Tobacco Use Smoking Status: Former smoker Tobacco Use: Non-smoker Meaningful Use Info Meaningful Use Diagnoses (Choose all that apply): None applicable Code Visit Inpatient E&M: 39759 Disch Hosp
--- NOTE | 2017-11-28 11:09 | PCM.PN.ID ---
Patient Problems: Active and Suspected Problems (This Medical Record has been edited. Action required.) Pleural effusion (Acute) Hypoxemia (Acute) Bacteremia due to Gram-negative bacteria (Acute) Subjective: Feeling a little better, still some SOB. No abd pain, no fever. - Physical Exam General: Alert, Cooperative, No apparent distress Lungs: Diminished - on R side Cardiovascular: Tachycardic Abdomen: Soft, Non Tender, Non-Distended Skin: No rashes Vital Signs Temp Pulse Resp BP Pulse Ox 98.9 F 133 H 18 148/89 H 96 11/28/17 08:44 11/28/17 08:44 11/28/17 08:44 11/28/17 08:44 11/28/17 08:44 Oxygen Flow Rate (L/min) 3 Oxygen Delivery Method Nasal Cannula Weight: 74 kg Body Mass Index (BMI) 28.9 Intake and Output for Last 24 Hours 11/26/17 11/27/17 11/28/17 23:59 23:59 23:59 Intake Total 4108.6 / 4108.6 1164.4 / 1164.4 100 / 100 Output Total 2210 / 2210 1000 / 1000 400 / 400 Balance 1898.6 / 1898.6 164.4 / 164.4 -300 / -300 Microbiology Past 72 Hours 11/26/17 14:15 Gram Stain - Final Fluid - Thoracentesis Fluid Body Fluid Culture - Final Klebsiella pneumoniae sp pneum 11/26/17 Unknown Gram Stain - Final Sputum, Expectorated/Coughed Respiratory Culture - Final Presumptive C albicans Streptococcus group F 11/25/17 18:50 Urine Culture - Final Urine Catheter - Catheter Presumptive E. coli 11/25/17 18:50 Streptococcus pneumoniae Antigen (M - Final Urine Catheter - Catheter Streptococcus pneumonia Ag 11/25/17 18:50 Legionella Antigen - Final Urine Catheter - Catheter Laboratory Tests Past 24 Hrs 11/26/17 11/27/17 11/27/17 14:37 08:56 17:10 WBC RBC Hgb Hct MCV MCH MCHC RDW RDW Differential Plt Count MPV Immature Gran % (Auto) Neut % (Auto) Lymph % (Auto) Walker % (Auto) Eos % (Auto) Baso % (Auto) Absolute Neuts (auto) Absolute Lymphs (auto) Total Counted Diff Path Review Reviewed Sodium 136 Potassium 4.0 Chloride 102 Carbon Dioxide 22.0 Anion Gap 12 BUN 14 Creatinine 0.64 Estim Creat Clear Calc 97.62 Est GFR (MDRD) Af Amer 132 Est GFR (MDRD) Non-Af 109 BUN/Creatinine Ratio 21.8 H Glucose 125 H Calcium 9.3 Fl Pathologist Comment Reviewed 11/28/17 11/28/17 05:58 05:58 WBC 13.2 H RBC 3.61 L Hgb 9.0 L Hct 30.0 L MCV 83.1 MCH 24.9 L MCHC 30.0 L RDW 19.6 H RDW Differential 57.6 H Plt Count 88 L MPV 8.6 Immature Gran % (Auto) 2.700 H Neut % (Auto) 85.5 H Lymph % (Auto) 5.8 L Walker % (Auto) 5.8 Eos % (Auto) 0.0 Baso % (Auto) 0.2 Absolute Neuts (auto) 11.3 H Absolute Lymphs (auto) 0.76 L Total Counted Not Reportable Diff Path Review Reviewed Sodium 137 Potassium 3.5 Chloride 98 Carbon Dioxide 22.0 Anion Gap 17 H BUN 13 Creatinine 0.53 L Estim Creat Clear Calc 117.89 Est GFR (MDRD) Af Amer 163 Est GFR (MDRD) Non-Af 135 BUN/Creatinine Ratio 24.3 H Glucose 118 H Calcium 9.8 Fl Pathologist Comment Medical Necessity - Tobacco Use Smoking Status: Former smoker Tobacco Use: Non-smoker Route of nutrition/ use of supplements: [] Nutritional Intake: [] IV Site: [] Gutierrez Catheter: [] - Assessment/Plan Antibiotics: [] Assessment/Plan: [] Active and Suspected Problems (This Medical Record has been edited. Action required.) Pleural effusion (Acute) Hypoxemia (Acute) severe sepsis (lactic acidosis, leukocytosis, tachycardia, tachypnea) due to klebs bacteremia from lung source - repeat bcx remain neg. Resolved R sided abd pain. CT abd/pelvis showed only some mild hydro, no sign of abscess or diverticulitis. Feeling much better this AM. 11/27 narrowed vanc/zosyn to ceftriaxone. klebsiella infected R pleural effusion with h/o cervical cancer - tap done 11/26, fluid appears exudative with concern for parapneumonic effusion or empyema. Cytology pending. Pulm following. S.pneumo Ag was (+). Abx as above. Fluid glucose was low. CXR after procedure still show white out. Being transferred to [facility] for surgical eval. ecoli complicated uti - (+) UA and Cx, covered by ceftriaxone. Has bilat ureteral stents in place. Had no dysuria but did have some urine changes prior to coming in. D/w Dr. Cat, will follow.
--- NOTE | 2017-11-28 12:43 | CASEMGMT ---
SW called Palliative/Hospice and let them know patient is being transferred to [facility] so they cancel their appt for today. ERAN spoke with Maik at Hospice regarding this information. Zita BROWN MSW
== END 2017-11-28 12:55 | disposition short-term general hospital (02) | DRG 871 ==
LOC: ED 12:03 → PCU 14:31
PROVIDERS: Internal Medicine Critical Care Medicine; Admitting Provider Internal Medicine; Emergency Provider Emergency Medicine; Family Provider Internal Medicine; PCP Internal Medicine; Visit Provider Internal Medicine
DX: A41.59 Other Gram-negative sepsis (principal); J96.01 Acute respiratory failure with hypoxia; J18.9 Pneumonia, unspecified organism; J90 Pleural effusion, not elsewhere classified; N39.0 Urinary tract infection, site not specified; R65.20 Severe sepsis without septic shock; Z66 Do not resuscitate; Z87.891 Personal history of nicotine dependence; C53.9 Malignant neoplasm of cervix uteri, unspecified; D50.9 Iron deficiency anemia, unspecified; Z92.3 Personal history of irradiation; Y95 Nosocomial condition
CPT/HCPCS: 32555; 36415; 71045; 71046; 71250; 74176; 80048; 80053; 80202; 81001; 82728; 82945; 83540; 83550; 83605; 83615; 83735; 84157; 85025; 85610; 85730; 86850; 86900; 86920; 86922; 87040; 87070; 87075; 87077; 87086; 87088; 87186; 87205; 87449; 88108; 88305; 88313; 89050; 92507; 92526; 94640; 94667; 94668; 97162; 97166; 97535; 97802; 99282; J7030; J7040; J7050; P9016; P9017; A4216; J0696